=== PATIENT | male | born 1995 | race Two or more races ===

== ENCOUNTER 2019-03-13 19:49 | Inpatient (IN) | payer MEDICAID ==
[~2019-03-13] VITALS: Ht 167.6 cm; Wt 64.0 kg
[2019-03-13 20:58] LABS: Basophils # (auto) 0 uL; Eosinophils # (auto) 0 uL; Mean Corpuscular Hemoglobin 26.1 pg (28.0-32.0); Monocytes # (auto) 0.5 uL; Monocytes % (auto) 6.5 % (0.0-12.0); Neutrophils # (auto) 6.7 uL
[2019-03-13 21:00] LABS: Basophils % (auto) 0.1 % (0.0-2.0); Hematocrit 35.8 % (41.0-53.0); Hemoglobin 11.5 g/dL (13.5-17.5); Lymphocytes # (auto) 0.1 uL; Lymphocytes % (auto) 1.6 % (10.0-50.0); Mean Corpuscular Hgb Conc. 32.2 g/dL (32.0-36.0); Mean Corpuscular Volume 80.9 fL (80.0-100.0); Neutrophils % (auto) 91.8 % (37.0-80.0); Platelet Count (auto) 204 10^3/uL (140-450); Red Blood Cells 4.42 10^6/uL (4.5-5.90); Red Cell Distribution Width 18.2 % (11.8-14.3); White Blood Cell 7.3 10^3/uL (4.4-10.8)
[2019-03-13 21:19] LABS: Albumin 3.3 g/dL (3.4-5.0); Anion Gap 5 (5-15); Blood Urea Nitrogen 19 mg/dL (7-18); Carbon Dioxide 29 mmol/L (21-32); Chloride 101 mmol/L (98-107); Glucose 115 mg/dL (74-106); Potassium 3.5 mmol/L (3.5-5.1); Sodium 135 mmol/L (136-145)
[2019-03-13 21:22] LABS: Alanine Aminotransferase 97 U/L (16-61); Alkaline Phosphatase 84 U/L (45-117); Aspartate Aminotransferase 106 U/L (15-37); Bilirubin, Total 1.1 mg/dL (0.2-1.0); Total Protein 8.3 g/dL (6.4-8.2)
[2019-03-13 21:35] LABS: BUN/Creatinine Ratio 126.7; GFR African American 1046 mL/min; GFR Non-African American 864 mL/min
[2019-03-13 21:45] VITALS: BP 108/62
[2019-03-13] MEDS ORDERED: ACETAMINOPHEN 325 MG TAB PO ONE (22:15)
[2019-03-13] MEDS ORDERED: ONDANSETRON HCL 4 MG/2 ML VIAL IV ONE (22:15)
[2019-03-13] MEDS ORDERED: MORPHINE SULFATE 4 MG/ML SYR/VIAL IV ONE (22:15)
[2019-03-13] MEDS ORDERED: ACETAMINOPHEN 650 mg PER 20 mL UD GT ONE (22:30)
[2019-03-13 23:59] LABS: Urine Bacteria NONE SEEN /hpf (None Seen); Urine Blood Negative /uL (Negative); Urine Specific Gravity 1.022 (1.001-1.035); Urine WBC 2 /hpf (0 - 3)
[2019-03-14] VITALS (11 sets, daily range): BP systolic 86–106; BP diastolic 38–61
[2019-03-14] MEDS ORDERED: IBUPROFEN 100MG/5ML ORAL SUSP 100 MG/5 ML UD GT ONE
[2019-03-14] MEDS ORDERED: metroNIDAZOLE 500MG/100ML 100 ML IV ONE (01:00)
[2019-03-14] MEDS ORDERED: PIPERACILLIN-TAZOB 3.375GM 100 ML IV ONE (01:00)
[2019-03-14] MEDS ORDERED: SODIUM CHLORIDE 0.9% 1,000 ML IV SCH (01:52)
[2019-03-14] MEDS ORDERED: ACETAMINOPHEN 325 MG TAB PO PRN (02:00)
[2019-03-14] MEDS ORDERED: HYDROcodone-ACET 5/325MG TAB PO PRN (02:00)
[2019-03-14] MEDS ORDERED: VANCOMYCIN PER PHARMACY 0 MG IV SCH (02:00)
[2019-03-14] MEDS ORDERED: ONDANSETRON HCL 4 MG/2 ML VIAL IV PRN (02:00)
[2019-03-14] MEDS ORDERED: DOCUSATE SOD 100 MG CAP PO PRN (02:00)
[2019-03-14] MEDS ORDERED: MORPHINE SULFATE 4 MG/ML SYR/VIAL IV PRN (02:00)
[2019-03-14] MEDS ORDERED: VANCOMYCIN 1GM/250ML 250 ML IV ONE ×3 (02:30→19:23)
[2019-03-14] MEDS ORDERED: ACETAMINOPHEN 650 mg PER 20 mL UD GT PRN (09:15)
[2019-03-14 09:49] LABS: Basophils # (auto) 0 uL; Eosinophils # (auto) 0 uL; Lymphocytes # (auto) 0.2 uL; Mean Corpuscular Hgb Conc. 32.4 g/dL (32.0-36.0); Monocytes # (auto) 0.3 uL
[2019-03-14 09:53] LABS: Basophils % (auto) 0.2 % (0.0-2.0); Hematocrit 35.1 % (41.0-53.0); Hemoglobin 11.4 g/dL (13.5-17.5); Lymphocytes % (auto) 2.6 % (10.0-50.0); Mean Corpuscular Hemoglobin 26.5 pg (28.0-32.0); Mean Corpuscular Volume 81.8 fL (80.0-100.0); Monocytes % (auto) 4.4 % (0.0-12.0); Neutrophils # (auto) 6.8 uL; Neutrophils % (auto) 92.8 % (37.0-80.0); Nucleated Red Blood Cells % 0.1 %; Platelet Count (auto) 182 10^3/uL (140-450); Red Cell Distribution Width 17.8 % (11.8-14.3); White Blood Cell 7.3 10^3/uL (4.4-10.8)
[2019-03-14 09:54] LABS: Anion Gap 6 (5-15); Calcium 8.7 mg/dL (8.5-10.1); Carbon Dioxide 27 mmol/L (21-32); Chloride 102 mmol/L (98-107); Glucose 94 mg/dL (74-106); Sodium 135 mmol/L (136-145)
[2019-03-14 10:00] LABS: Blood Urea Nitrogen 10 mg/dL (7-18)
[2019-03-14] MEDS ORDERED: VANCOMYCIN 1GM/250ML 250 ML IV SCH ×2 (10:00→15:00)
--- NOTE | 2019-03-14 10:00 | NUR ---
WOUND CARE NOTE: ORDERED SPECIALTY AIR BED AT THIS TIME. PATIENT TO BE PLACED, PENDING DELIVERY BY SUDHA GUERRA
[2019-03-14 10:21] LABS: BUN/Creatinine Ratio 66.7; GFR African American 1046 mL/min; GFR Non-African American 864 mL/min
--- NOTE | 2019-03-14 10:41 | NUR ---
Dietary Consult Pt wt is 58.9 kg today Pt in ER waiting to be transferred to room per RN. Per RN, family is requesting EN support be initiated today. Est energy needs: 8683-4935 kcals (25-30 kcals/kgBW) Est protein needs: 47-59 gms/day (0.8-1.0 gm/kgBW) Recommendation: EN support Jevity 1.2 @ 55ml/hr goal rate. Administer as tolerated and per MD approval. Closely monitor PO intake for tolerance.
[2019-03-14] MEDS: PIPERACILLIN-TAZOB 3.375GM 100 ML IV SCH ×3 (11:19→21:54)
--- NOTE | 2019-03-14 12:00 | NUR ---
WOUND CARE NOTE: PATIENT ADMITTED TO [facility] WITH DIAGNOSIS OF PNA, CHOLELITHIASIS. CURRENT MELITON SCORE IS 12. PATIENT IS IN ER, BEING TRANSFERRED UP TO [facility]/SURG-TELE SHORTLY. PATIENT IS VENT DEPENDANT. ORDERED SPECIALTY AIR BED PREVENTATIVE. PATIENT TO BE PLACED, PENDING DELIVERY BY SUDHA MOISE. PATIENT HAS NO SKIN ISSUES AT THIS TIME. PATIENT WOULD BENEFIT FROM FREQUENT TURN SCHEDULE Q 2 HOURS, PRN CONDITION PERMITS, WITH PRESSURE REDISTRIBUTION USING PILLOWS/WEDGES, BID/PRN APPLICATION WITH MOISTURE BARRIER CREAM, OPTIFOAM GENTLE SACRAL DRESSING PREVENTATIVE, DIETARY CONSULT, SKIN WOUND CARE PLAN, CONTINUED MONITORING BY WOUND CARE TEAM.
[2019-03-14] MEDS ORDERED: LEVO25TA6 GT (13:12)
[2019-03-14] MEDS ORDERED: FAMO-12 GT (13:12)
[2019-03-14] MEDS ORDERED: ASPI-404 GT (13:12)
[2019-03-14] MEDS ORDERED: DOCU100T15 GT (13:12)
[2019-03-14] MEDS ORDERED: BACL10TA GT (13:12)
[2019-03-14] MEDS ORDERED: METO25TA5 GT (13:12)
--- NOTE | 2019-03-14 15:40 | NUR ---
REMOVED PT FROM VENTILATOR AND PLACED PT ON TRACH COLLAR ON 30% FIO2 AT 8LPM. PT CHAGO.WELL. SX MODERATE AMOUNTS OF THICK YELLOW SECRETIONS. SPO2 95%, HR 83, RR 18. NO DISTRESS AND NOTED. TRACH CARE DONE WITH NO INCIDENT REPORTED.
--- NOTE | 2019-03-14 17:30 | NUR ---
ASSUMED PATIENT CARE FROM J LUIS Chu PATIENT IS RESTING WITH FAMILY AT BEDSIDE. NO DISTRESS NOTED AND FAMILY AT BEDSIDE. ENCOURAGED TO CALL IF THEY NEED ANYTHING.
[2019-03-14] MEDS: SODIUM CHLORIDE 0.9% 1,000 ML IV SCH ×2 (18:32→23:40)
--- NOTE | 2019-03-14 19:20 | NUR ---
Opening Shift Note Received report from Altaf HANSEN. Assumed care of patient, awake and alert, non verbal and on mechanical ventilation. No S/S of distress/SOB or pain. Instructed patient and mother on POC and to call for assist PRN. Fall precaution measures in place, will continue to monitor for changes Q1hr and PRN.
[2019-03-15 05:00] VITALS: BP 97/48
[2019-03-15] MEDS: SODIUM CHLORIDE 0.9% 1,000 ML IV SCH ×4 (05:00→18:29)
[2019-03-15] MEDS: PIPERACILLIN-TAZOB 3.375GM 100 ML IV SCH ×3 (05:58→21:45)
[2019-03-15 06:29] LABS: Chloride 106 mmol/L (98-107); Potassium 3.6 mmol/L (3.5-5.1); Sodium 139 mmol/L (136-145)
[2019-03-15 06:37] LABS: Alanine Aminotransferase 134 U/L (16-61); Albumin 2.6 g/dL (3.4-5.0); Alkaline Phosphatase 102 U/L (45-117); Anion Gap 7 (5-15); Aspartate Aminotransferase 108 U/L (15-37); Bilirubin, Total 0.6 mg/dL (0.2-1.0); Blood Urea Nitrogen 7 mg/dL (7-18); Calcium 8.5 mg/dL (8.5-10.1); Carbon Dioxide 26 mmol/L (21-32); Glucose 75 mg/dL (74-106); Total Protein 6.7 g/dL (6.4-8.2)
[2019-03-15 07:01] LABS: BUN/Creatinine Ratio 46.7; GFR African American 1046 mL/min; GFR Non-African American 864 mL/min
--- NOTE | 2019-03-15 07:17 | NUR ---
Respiratory note: PATIENT TAKEN OFF VENT AT THIS TIME AND PLACED ON 30% COOL AEROSOL TRACH MASK. HE HAS 7 PORTEX CUFFED TRACH, CUFF WAS DEFLATED AT THIS TIME PER PATIENTS REQUEST. SPO2 95% AT THIS TIME.
[2019-03-15 08:38] VITALS: BP 112/68
--- NOTE | 2019-03-15 08:38 | NUR ---
Respiratory note: PATIENT PLACED ON V6 ESPRIT VENTILATOR AT THIS TIME PER HIS REQUEST HE STATES HE FEELS "TIRED" AND "SOB". 7 PORTEX CUFFED TRACH WAS REINFLATED FOR MECHANICAL VENTILATION. HE WAS SUCTIONED FOR MODERATE AMOUNT OF THICK GREEN SECRETIONS. HE SAYS HE NOW FEELS BETTER AFTER SUCTION AND BEING PLACED BACK ON VENT. TRACH SITE IS CLEAN/CLEAR FROM DRAINAGE, PATIENT IS ALERT/ORIENTED AND TOLERATING VENT WELL. RN J LUIS MADE AWARE OF PLACEMENT ON VENT AND PATIENTS CURRENT CONDITION. VENT IS PLUGGED INTO RED OUTLET AND ALL ALARMS ARE SET AND AUDIBLE. WILL CONTINUE TO ASSESS PATIENT WELL VENTILATOR FUNCTION.
[2019-03-15] MEDS ORDERED: MORPHINE SULF INJ 2 MG/ML SYRINGE 1ML IV PRN (08:45)
[2019-03-15] MEDS ORDERED: PIPERACILLIN-TAZOB 3.375GM 100 ML IV SCH (08:45)
[2019-03-15] MEDS ORDERED: METOPROLOL TARTRATE 1MG/1ML-5ML VIAL IV PRN (12:15)
[2019-03-15] MEDS ORDERED: FAMOTIDINE (10MG/ML) 2ML VL IV ONE (12:30)
[2019-03-15 13:00] VITALS: BP 100/55
[2019-03-15 13:08] LABS: INR 1.28 (0.9-1.15)
[2019-03-15 13:25] LABS: Amylase 35 U/L (25-115); Lipase 67 U/L (73-393)
[2019-03-15] MEDS: VANCOMYCIN 1GM/250ML 250 ML IV SCH (13:35)
--- NOTE | 2019-03-15 14:56 | NUR ---
Respiratory note: PATIENT TAKEN OFF VENT AT THIS TIME AND PLACED ON 6LPM TRACH MASK FOR TRANSPORT TO [facility] FOR PROCEDURE. SPO2 MAINTAINED AT 98%.
[2019-03-15 16:56] VITALS: BP 99/51
[2019-03-15 21:28] VITALS: BP 104/61
--- NOTE | 2019-03-16 00:27 | NUR ---
Respiratory note: RECEIVED PATIENT ON V6 V200 TRACHED WITH A 7 PORTEX, CUFFED, SECURED VIA TRACH TIE, AND BEING MECHANICALLY VENTILATED WITH THE CHARTED SETTINGS. SPO2 99%, LUNG SOUNDS DIM T/O. SMALL AMOUNT OF THICK GREEN SECRETIONS WHEN SUCTIONED. PATIENT IS ASLEEP AND TOLERATING VENT WELL, NO CHANGES MADE. VENT PLUGGED INTO RED OUTLET AND ALL ALARMS ARE SET AND AUDIBLE. WILL CONTINUE TO ASSESS PATIENT WELL VENTILATOR FUNCTION.
[2019-03-16] MEDS: SODIUM CHLORIDE 0.9% 1,000 ML IV SCH ×5 (00:35→20:09)
[2019-03-16] MEDS: VANCOMYCIN 1GM/250ML 250 ML IV SCH ×2 (01:07→12:45)
[2019-03-16 04:28] VITALS: BP 104/66
[2019-03-16] MEDS: PIPERACILLIN-TAZOB 3.375GM 100 ML IV SCH ×3 (05:40→22:17)
[2019-03-16 06:05] LABS: Basophils # (auto) 0 uL; Eosinophils # (auto) 0 uL; Eosinophils % (auto) 0.1 % (0.0-7.0); Hemoglobin 9.9 g/dL (13.5-17.5); Monocytes # (auto) 0.4 uL; Neutrophils # (auto) 1.9 uL; White Blood Cell 2.9 10^3/uL (4.4-10.8)
[2019-03-16 06:08] LABS: Basophils % (auto) 0.4 % (0.0-2.0); Hematocrit 30.3 % (41.0-53.0); Lymphocytes # (auto) 0.6 uL; Lymphocytes % (auto) 21.9 % (10.0-50.0); Mean Corpuscular Hemoglobin 26.6 pg (28.0-32.0); Mean Corpuscular Hgb Conc. 32.6 g/dL (32.0-36.0); Mean Corpuscular Volume 81.6 fL (80.0-100.0); Monocytes % (auto) 12.5 % (0.0-12.0); Neutrophils % (auto) 65.1 % (37.0-80.0); Platelet Count (auto) 145 10^3/uL (140-450); Red Blood Cells 3.71 10^6/uL (4.5-5.90); Red Cell Distribution Width 17.7 % (11.8-14.3)
[2019-03-16 06:22] LABS: Amylase 30 U/L (25-115); Anion Gap 8 (5-15); Blood Urea Nitrogen 5 mg/dL (7-18); Calcium 8.4 mg/dL (8.5-10.1); Carbon Dioxide 26 mmol/L (21-32); Chloride 105 mmol/L (98-107); Glucose 68 mg/dL (74-106); Lipase 90 U/L (73-393); Potassium 3.3 mmol/L (3.5-5.1); Sodium 139 mmol/L (136-145)
[2019-03-16 06:29] LABS: BUN/Creatinine Ratio 33.3; GFR African American 1046 mL/min; GFR Non-African American 864 mL/min
[2019-03-16 09:00] VITALS: BP 118/69
[2019-03-16] MEDS: FAMOTIDINE (10MG/ML) 2ML VL IV SCH (09:40)
[2019-03-16] MEDS ORDERED: POTASSIUM CHLORIDE 20 MEQ, LIDOCAINE 1% (LOCAL ANESTH.) 2 ML in SODIUM CHL 0.9% 100 ML IV ONE (11:30)
[2019-03-16 13:00] VITALS: BP 111/63
--- NOTE | 2019-03-16 13:57 | NUR ---
transfer: ss order along with transfer packet faxed to [facility], [facility] and [facility]
--- NOTE | 2019-03-16 16:23 | NUR ---
[facility] is on will call, I called Jania Shay CM for [facility] for auth and had to leave message to call [facility] and give auth for transport since I will not be here to accept call.
--- NOTE | 2019-03-16 16:27 | NUR ---
auths per Janeth at [facility] is [facility] [phone] and for facility is [id number]
--- NOTE | 2019-03-16 16:36 | NUR ---
Assessment Pt is a 23 yr old alert and oriented male. Assessment conducted through coal trimmer with parents per pt's request. Pt lives at home with family and his parents are his caregivers. Pt's sister Jordyn is his emergency contact at [phone]. Pt is quadriplegic and needs full assist in the home. Pt admitted with headache. Pt's Primary is Dr Meehan and has no AD on file. Pt's mother stated that he has all the DME needed the home. Pt needs to be transferred to a higher level care per 's order. Pt's parents would prefer placement at [facility] if possible. Pt's receives medical transportation. Addendum: 03/16/19 at 1646 by JACQUELYN GRIMES Amended: Links added.
[2019-03-16 17:00] VITALS: BP 113/60
[2019-03-16 18:10] VITALS: BP 113/60
[2019-03-16 21:48] VITALS: BP 106/60
[2019-03-17] MEDS: VANCOMYCIN 1GM/250ML 250 ML IV SCH ×2 (00:58→13:43)
[2019-03-17] MEDS: SODIUM CHLORIDE 0.9% 1,000 ML IV SCH ×2 (01:10→06:15)
[2019-03-17 01:30] VITALS: BP 106/60
[2019-03-17 04:46] VITALS: BP 123/79
[2019-03-17] MEDS: PIPERACILLIN-TAZOB 3.375GM 100 ML IV SCH ×3 (06:02→22:29)
--- NOTE | 2019-03-17 07:30 | NUR ---
RECEIVED REPORT FROM NIGHT NURSE. PATIENT RESTING IN BED, NO DISTRESS NOTED. SISTER AT BEDSIDE.
--- NOTE | 2019-03-17 08:23 | NUR ---
transfer: called [facility] and spoke to Shari and she stated they are working on contacting one of their MDs
--- NOTE | 2019-03-17 08:36 | NUR ---
[facility] is working on getting a MD for this pt
[2019-03-17 08:49] VITALS: BP 99/51
--- NOTE | 2019-03-17 09:30 | NUR ---
I HAVE OFFERED TO TURN THE PATIENT EVERY 2 HOURS INSTRUCTED. THE PATIENT HAS DECLINED TO BE TURNED TWICE SO FAR.
[2019-03-17] MEDS: FAMOTIDINE (10MG/ML) 2ML VL IV SCH (10:13)
[2019-03-17] MEDS ORDERED: D5W/SOD CHL 0.45%/KCL 40MEQ 1,000 ML IV ONE (10:45)
[2019-03-17 10:57] LABS: Basophils # (auto) 0 uL; Basophils % (auto) 0.2 % (0.0-2.0); Eosinophils # (auto) 0 uL; Hemoglobin 11.4 g/dL (13.5-17.5); Lymphocytes # (auto) 0.6 uL; Monocytes # (auto) 0.7 uL; Platelet Count (auto) 160 10^3/uL (140-450); White Blood Cell 3.7 10^3/uL (4.4-10.8)
[2019-03-17 10:59] LABS: Hematocrit 35.6 % (41.0-53.0); Mean Corpuscular Hemoglobin 26.2 pg (28.0-32.0); Mean Corpuscular Volume 81.8 fL (80.0-100.0); Monocytes % (auto) 17.9 % (0.0-12.0); Neutrophils # (auto) 2.5 uL; Neutrophils % (auto) 66.9 % (37.0-80.0); Nucleated Red Blood Cells % 0.1 %; Red Blood Cells 4.35 10^6/uL (4.5-5.90); Red Cell Distribution Width 17.9 % (11.8-14.3)
[2019-03-17 11:17] LABS: Albumin 2.5 g/dL (3.4-5.0); Calcium 8.4 mg/dL (8.5-10.1); Potassium 3.4 mmol/L (3.5-5.1)
[2019-03-17 11:20] LABS: BUN/Creatinine Ratio 27.6; Bilirubin, Total 0.6 mg/dL (0.2-1.0); Total Protein 7.1 g/dL (6.4-8.2)
--- NOTE | 2019-03-17 11:59 | NUR ---
Mai from [facility] called and stated vent pts go to ICU in their facility and that all their ICU's are at capacity right now. Pt will be kept on list
--- NOTE | 2019-03-17 12:00 | NUR ---
OFFERED TO TURN THE PATIENT INSTRUCTED, THE PATIENT HAS DECLINED TO BE TURNED AGAIN. I NOTIFIED THE PATIENT'S RN.
[2019-03-17 12:31] VITALS: BP 114/65
--- NOTE | 2019-03-17 14:21 | NUR ---
CALLED [facility] AND HAD TO LEAVE MESSAGE ASKING ABOUT TRANSFER UPDATE
--- NOTE | 2019-03-17 15:01 | NUR ---
FAXED TO [facility] AND [facility]
--- NOTE | 2019-03-17 15:10 | NUR ---
WILL HOLD OFF FAXING TO [facility] OR [facility] TO SEE IF PT'S FAMILY OKAY WITH PT GOING TO THOSE FACILITIES
--- NOTE | 2019-03-17 15:32 | NUR ---
TRANSFER: Primary RN Norma informed me that mother of pt states [facility] too far away. I will only fax transfer back and transfer packet to [place] since family okay with location of hospital
[2019-03-17 16:44] VITALS: BP 110/65
--- NOTE | 2019-03-17 18:00 | NUR ---
PATIENT AND FAMILY AT BEDSIDE, REFUSING TO HAVE THE PATIENT TURNED Q2 THROUGH OUT SHIFT. PATIENT ON SPECIALTY/AIR MATTRESS. EDUCATION PROVIDED ON IMPORTANCE OF TURNING, WILL CONTINUE TO MONITOR AND ENCOURAGE TO TURN.
--- NOTE | 2019-03-17 19:30 | NUR ---
REPORT RECEIVED, ASSUMED CARE.
--- NOTE | 2019-03-17 20:13 | NUR ---
PT REFUSING TO BE TURNED. FAMILY @ BEDSIDE AWARE, EDUCATION GIVEN TO BOTH PT AND FAMILY.
[2019-03-17 22:01] VITALS: BP 112/65
--- NOTE | 2019-03-17 22:22 | NUR ---
PT REFUSING TO BE TURNED. FAMILY @ BEDSIDE AWARE, EDUCATION GIVEN TO BOTH PT AND FAMILY.
--- NOTE | 2019-03-18 00:09 | NUR ---
PT REFUSING TO BE TURNED. FAMILY @ BEDSIDE AWARE, EDUCATION GIVEN TO BOTH PT AND FAMILY.
[2019-03-18] MEDS: VANCOMYCIN 1GM/250ML 250 ML IV SCH ×2 (00:47→12:03)
--- NOTE | 2019-03-18 01:56 | NUR ---
PT REFUSING TO BE TURNED. FAMILY @ BEDSIDE AWARE, EDUCATION GIVEN TO BOTH PT AND FAMILY.
--- NOTE | 2019-03-18 03:45 | NUR ---
PT REFUSING TO BE TURNED. FAMILY @ BEDSIDE AWARE, EDUCATION GIVEN TO BOTH PT AND FAMILY.
[2019-03-18 05:20] VITALS: BP 108/62
[2019-03-18] MEDS: PIPERACILLIN-TAZOB 3.375GM 100 ML IV SCH ×3 (05:37→21:35)
--- NOTE | 2019-03-18 06:00 | NUR ---
PT REFUSING TO BE TURNED. FAMILY @ BEDSIDE AWARE, EDUCATION GIVEN TO BOTH PT AND FAMILY.
--- NOTE | 2019-03-18 07:30 | NUR ---
OPENING SHIFT NOTE RECEIVED REPORT FROM NIGHT NURSE. PATIENT RESTING IN BED, NO DISTRESS NOTED. FAMILY AT BEDSIDE. WILL CONTINUE TO MONITOR.
[2019-03-18 09:20] VITALS: BP 105/70
--- NOTE | 2019-03-18 09:24 | NUR ---
I called [facility] transfer center [phone] and spoke with Shad, he said they have no ICU beds available at this time-I verified Dr. Dolan's contact information with him.
[2019-03-18] MEDS: FAMOTIDINE (10MG/ML) 2ML VL IV SCH (09:55)
--- NOTE | 2019-03-18 10:18 | NUR ---
I called [facility] and spoke with resort housekeeper Betty, she provided me with their front end wheel loader operator hospitalist Dr. Clayton [phone]-I placed a page out to Dr. Dolan to provided her with the information-she needs to call him to see if he will be willing to accept this patient.
[2019-03-18 13:17] VITALS: BP 106/61
[2019-03-18 13:36] LABS: Basophils # (auto) 0 uL; Eosinophils # (auto) 0 uL; Monocytes # (auto) 0.7 uL
[2019-03-18 13:38] LABS: Basophils % (auto) 0.4 % (0.0-2.0); Eosinophils % (auto) 0.4 % (0.0-7.0); Hematocrit 33.6 % (41.0-53.0); Lymphocytes # (auto) 0.8 uL; Lymphocytes % (auto) 22.4 % (10.0-50.0); Mean Corpuscular Hemoglobin 26.5 pg (28.0-32.0); Mean Corpuscular Hgb Conc. 32.8 g/dL (32.0-36.0); Mean Corpuscular Volume 80.8 fL (80.0-100.0); Monocytes % (auto) 17.7 % (0.0-12.0); Neutrophils # (auto) 2.2 uL; Neutrophils % (auto) 59.1 % (37.0-80.0); Nucleated Red Blood Cells % 0.1 %; Platelet Count (auto) 151 10^3/uL (140-450); Red Blood Cells 4.17 10^6/uL (4.5-5.90); Red Cell Distribution Width 17.5 % (11.8-14.3); White Blood Cell 3.8 10^3/uL (4.4-10.8)
[2019-03-18 13:57] LABS: BUN/Creatinine Ratio 15.2; Calcium 8.6 mg/dL (8.5-10.1); Potassium 3.7 mmol/L (3.5-5.1)
--- NOTE | 2019-03-18 16:02 | NUR ---
Nutrition Assessment Notes Please refer to link for full assessment notes Est energy needs: 5029-3479 kcals (25-30 kcals/kgBW) Est protein needs: 53-66 gms/day (0.8-1.0 gm/kgBW) Recommendation: EN support Jevity 1.2 @ 65ml/hr goal rate. Administer as tolerated and per MD approval. Closely monitor PO intake for tolerance. Note: Patient's needs were amended from the original recommendation based on pt's current weight as of today Will continue to monitor and reassess prn Addendum: 03/18/19 at [address] Amended: Links added.
[2019-03-18 16:50] VITALS: BP 115/66
--- NOTE | 2019-03-18 17:27 | NUR ---
PATIENT REFUSED TO TURN. FAMILY IS AT BEDSIDE.
--- NOTE | 2019-03-18 17:29 | NUR ---
PATIENT REFUSED TO TURN THROUGH OUT THE SHIFT. FAMILY IS AT BEDSIDE. EDUCATION WAS GIVEN TO THE PATIENT AND FAMILY.
--- NOTE | 2019-03-18 18:40 | NUR ---
PATIENT AND FAMILY AT BEDSIDE, REFUSING TO HAVE THE PATIENT TURNED Q2 THROUGHOUT SHIFT. PATIENT ON SPECIALTY/AIR MATTRESS. EDUCATION PROVIDED ON IMPORTANCE OF TURNING, WILL CONTINUE TO MONITOR AND ENCOURAGE TO TURN.
--- NOTE | 2019-03-18 19:30 | NUR ---
OPENING SHIFT NOTE PT IN BED ALERT AND ORIENTED X 4, VERBALLY COHERENT, ABLE TO MAKE NEEDS KNOWN. PT'S RESPIRATION EVEN AND UNLABORED. PT DENIES PAIN AND DISCOMFORT AT THIS TIME. PLAN OF CARE DISCUSSED, PATIENT VERBALIZED UNDERSTANDING. ALL NEEDS ATTENDED, FAMILY AT BEDSIDE. WILL CONTINUE TO MONITOR.
[2019-03-18 21:55] VITALS: BP 105/70
[2019-03-19] VITALS (8 sets, daily range): BP systolic 113–133; BP diastolic 69–79
--- NOTE | 2019-03-19 01:50 | NUR ---
Ventilator alarm. Pt not in acute distress, however, per pt/ father, unable to sleep due to alarm. RT paged.
--- NOTE | 2019-03-19 04:22 | NUR ---
Patient complained of nausea with no vomiting. Zofran administered as ordered. Will continue to monitor.
--- NOTE | 2019-03-19 04:23 | NUR ---
Patient refused skin assessment and repositioning. Pt's father at bedside, per pt, father already provided him with urinal to urinate and provided perineal care. Will continue to monitor.
[2019-03-19] MEDS: PIPERACILLIN-TAZOB 3.375GM 100 ML IV SCH ×3 (06:13→21:39)
--- NOTE | 2019-03-19 07:15 | NUR ---
Opening Shift Note Assumed care of patient, awake and alert. No S/S of distress/SOB or pain reported by pt. Pts father was in room. Instructed on POC and to call for assist PRN, will continue to monitor for changes Q1hr and PRN. call light within reach.
--- NOTE | 2019-03-19 08:30 | NUR ---
TRACH CUFF DEFLATED AT THIS TIME
--- NOTE | 2019-03-19 08:30 | NUR ---
PT IS OFF VENTILATOR AT THIS TIME AND PLACED ON 30% COOL MIST AEROSOL TRACH MASK. PT CONNECTED TO CONTINUOUS PULSE OX AT BEDSIDE. PER PT FATHER, PT ONLY WEARS VENTILATOR AT NIGHT WHEN HES AT HOME. NO RESPIRATORY DISTRESS NOTED. SPO2 99%. SUCTION NOT INDICATED. JADE MONTIEL AWARE.
--- NOTE | 2019-03-19 09:17 | NUR ---
I called [facility] [phone] and left message for warehouse laborer to call me back regarding which MD of theirs is on today so we can arrange a doctor to doctor. Addendum: 03/22/19 at 0940 by Betty Monte RN [id number] 03/19/19 I spoke with Augusta from [facility]-she stated that Dr. Wise is flight information expediter today-provided phone number to Dr. Dolan [phone]-she called him and is waiting for a call back to see if he will be accepting the patient.
[2019-03-19] MEDS: FAMOTIDINE (10MG/ML) 2ML VL IV SCH (10:13)
[2019-03-19] MEDS ORDERED: ENOXAPARIN SOD 40 MG/0.4 ML SYRINGE SC ONE (13:45)
--- NOTE | 2019-03-19 15:20 | NUR ---
ATTEMPTED TO DO TRACH CARE AT THIS TIME, PT REFUSED. PT STATES TRACH CARE DONE BY FAMILY MEMBER. TRACH SITE IS CLEAN WITH CLEAN WEBBER HOLE DRESSING. DEEP TRACHEAL SUCTIONED X3 USING STERILE TECHNIQUE FOR MODERATE THICK GREEN RETURN.
[2019-03-19 16:38] LABS: Albumin 2.4 g/dL (3.4-5.0); BUN/Creatinine Ratio 21.1; Calcium 8.5 mg/dL (8.5-10.1); Potassium 3.2 mmol/L (3.5-5.1)
[2019-03-19 16:40] LABS: Bilirubin, Total 0.7 mg/dL (0.2-1.0); Total Protein 7.1 g/dL (6.4-8.2)
--- NOTE | 2019-03-19 17:15 | NUR ---
PAGED DR. MATTHEW TO INFORM OF CMP RESULTS. AWAITING CALL BACK.
[2019-03-19] MEDS: Jevity 1.2 Cal/Fiber 1 Liter GT SCH (18:19)
--- NOTE | 2019-03-19 18:20 | NUR ---
jevity started at 30 ml/hr per Dr. Dolan's order. patient encouraged to call if any pain to the abdominal area occurs.
--- NOTE | 2019-03-19 19:54 | NUR ---
Opening shift note Patient in bed alert and oriented x 4, verbally coherent, snow to make needs known. Patient's respiration even and unlabored, denies pain or any discomfort at this time. Plan of care discussed, patient verbalized understanding. Family at bedside. All needs attended, will continue to monitor.
--- NOTE | 2019-03-19 21:46 | NUR ---
PATIENT REQUESTED TO BE DEEP SUCTIONED AND TO TURN [facility] VENTILATOR ON. PAGED RT.
--- NOTE | 2019-03-20 00:12 | NUR ---
RECEIVED CALL FROM [facility]/ [facility], NO AVAILABLE BED OF THIS TIME. PER [facility], THEY WILL CALL AGAIN WHEN BED AVAILABLE. WILL ENDORSE TO AM SHIFT RN.
--- NOTE | 2019-03-20 03:42 | NUR ---
RECEIVED CALL FROM [facility]/ [facility] STILL AWAITING FOR ACCEPTING PHYSICIAN. PER [facility], WILL UPDATE [facility].
--- NOTE | 2019-03-20 04:00 | NUR ---
PATIENT WITH HEAVY AMOUNT OF GREEN SOFT BM. PROVIDED PATIENT WITH GOOD SKIN AND PERINEAL CARE. PROVIDED PATIENT WITH MOUTH CARE. COMPLETE LINEN CHANGE DONE WITH BENCH MANAGER ASSISTANCE. PATIENT TOLERATED WELL.
[2019-03-20 05:55] VITALS: BP 119/60
[2019-03-20] MEDS: PIPERACILLIN-TAZOB 3.375GM 100 ML IV SCH ×3 (06:26→21:10)
--- NOTE | 2019-03-20 07:30 | NUR ---
Opening Shift Note Assumed care of patient, awake and alert. No S/S of distress/SOB or pain. Instructed on POC and to call for assist PRN, will continue to monitor for changes Q1hr and PRN.
--- NOTE | 2019-03-20 07:45 | NUR ---
REMOVED PT FROM VENT V-9, AND PLACE PT ON 11L 35% FIO2 VIA TRACH COLLAR. SX TRACH FOR SMALL AMOUNT OF THICK, CLEAR, SECRETIONS. SPO2 100%, HR 70, RR 20, BS COARSE/DIMINISHED BILATERALLY. STOMA SITE IS CLEAN, AND DRY. NO REDNESS, OR IRRITATION NOTED. FAMILY AT BEDSIDE.
[2019-03-20 07:55] LABS: Calcium 8.3 mg/dL (8.5-10.1)
[2019-03-20 07:58] LABS: Albumin 2.5 g/dL (3.4-5.0); BUN/Creatinine Ratio 15.4
[2019-03-20 08:00] VITALS: BP 130/68
[2019-03-20 08:02] LABS: Bilirubin, Total 0.6 mg/dL (0.2-1.0); Total Protein 7.3 g/dL (6.4-8.2)
--- NOTE | 2019-03-20 08:35 | NUR ---
Dr. Dolan paged for low potassium level. Awaiting call back for orders from Dr. Dolan.
[2019-03-20 09:00] VITALS: BP 130/68
--- NOTE | 2019-03-20 10:40 | NUR ---
Respiratory note: PT AWAKE, AND ALERT. TITRATED FIO2 FROM 11L 35% TO 8L 30% VIA TRACH COLLAR. PT TOLERATING CHANGE WELL. SPO2 100%, HR 79, RR 18, BS CLEAR/DIMINISHED. FAMILY AT BEDSIDE.
--- NOTE | 2019-03-20 10:45 | NUR ---
WOUND CARE NOTE: PATIENT CONTINUES TO REST ON SPECIALTY AIR MATTRESS. CURRENT MELITON SCORE IS 10. PATIENT CONTINUES TO BE MAX ASSIST FOR HIS ADL'S, INCLUDING REPOSITIONING/TURNING. HE CONTINUES TO BE WOUND FREE AT THIS TIME. SKIN/WOUND CARE PLAN UPDATED. PATIENT WOULD BENEFIT FROM CONTINUATION WITH ALL OF HIS WOUND CARE ORDERS/INTERVENTIONS PREVIOUSLY PRESCRIBED BY MD. WOUND CARE TEAM WILL CONTINUE TO MONITOR.
[2019-03-20] MEDS: FAMOTIDINE (10MG/ML) 2ML VL IV SCH (10:46)
[2019-03-20] MEDS: ENOXAPARIN SOD 40 MG/0.4 ML SYRINGE SC SCH (10:47)
[2019-03-20] MEDS: POTASSIUM CHL 20MEQ/100ML 100 ML IV SCH ×2 (12:46→15:40)
[2019-03-20 13:00] VITALS: BP 125/61
[2019-03-20 17:00] VITALS: BP 121/71
--- NOTE | 2019-03-20 19:30 | NUR ---
Opening Shift Note Assumed care of patient, awake and alert. No S/S of distress/SOB or pain. Instructed on POC and to call for assist PRN, family at bedside, will continue to monitor.
--- NOTE | 2019-03-20 20:00 | NUR ---
Free water given via peg tube. 150ml Q3 per family home schedule verified with patient's sister, Jordyn. Abdomen soft, non distended. Will continue to monitor.
[2019-03-20 21:34] VITALS: BP 119/71
[2019-03-21] VITALS (7 sets, daily range): BP systolic 100–143; BP diastolic 52–75
[2019-03-21] MEDS: PIPERACILLIN-TAZOB 3.375GM 100 ML IV SCH ×3 (06:25→19:39)
--- NOTE | 2019-03-21 07:15 | NUR ---
Respiratory note: RT AT BEDSIDE TO TAKE PT OFF VENT AND PLACE ON TRACH COLLAR FOR THE DAY, PT SAID IT'S STILL TOO EARLY AND WANTED TO STAY ON THE VENT TO SLEEP A LITTLE LONGER. PT REMAINS ON VENT, SLEEPING COMFORTABLY IN BED, NO S/S OF RESPIRATORY DISTRESS NOTED. HR 75, RR 14, POX 99%. PT'S MOTHER AT BEDSIDE. WILL CONTINUE TO MONITOR.
[2019-03-21 07:57] LABS: Basophils # (auto) 0 uL; Basophils % (auto) 0.1 % (0.0-2.0); Eosinophils # (auto) 0.1 uL; Monocytes # (auto) 0.7 uL; Neutrophils # (auto) 2.5 uL; Nucleated Red Blood Cells % 0.1 %; White Blood Cell 4.1 10^3/uL (4.4-10.8)
[2019-03-21 08:00] LABS: Hematocrit 31.2 % (41.0-53.0); Hemoglobin 10.3 g/dL (13.5-17.5); Lymphocytes # (auto) 0.9 uL; Lymphocytes % (auto) 21.1 % (10.0-50.0); Mean Corpuscular Hemoglobin 26.1 pg (28.0-32.0); Mean Corpuscular Hgb Conc. 32.8 g/dL (32.0-36.0); Mean Corpuscular Volume 79.6 fL (80.0-100.0); Monocytes % (auto) 16.1 % (0.0-12.0); Neutrophils % (auto) 60.7 % (37.0-80.0); Platelet Count (auto) 157 10^3/uL (140-450); Red Blood Cells 3.92 10^6/uL (4.5-5.90); Red Cell Distribution Width 17.6 % (11.8-14.3)
[2019-03-21 08:08] LABS: Anion Gap 3 (5-15); Blood Urea Nitrogen 6 mg/dL (7-18); Carbon Dioxide 32 mmol/L (21-32); Chloride 107 mmol/L (98-107); Glucose 107 mg/dL (74-106); Magnesium 1.5 mg/dL (1.6-2.6); Potassium 3.7 mmol/L (3.5-5.1); Sodium 142 mmol/L (136-145)
[2019-03-21 08:10] LABS: Calcium 8.3 mg/dL (8.5-10.1); GFR African American 1046 mL/min; GFR Non-African American 864 mL/min
--- NOTE | 2019-03-21 08:40 | NUR ---
OFF VENT TOOK PT OFF VENT, PLACED ON TRACH COLLAR WITH COOL AEROSOL 10 L/M, FIO2 35% WITH CUFF DEFLATED. HR 74, RR 16, POX 99%. BREATH SOUNDS BILATERAL COARSE CRACKLES, SUCTIONED MODERATE AMOUNT THICK CREAMY SECRETIONS. PT AWAKE, RESTING COMFORTABLY IN BED, NO S/S OF RESPIRATORY DISTRESS NOTED, PT DENIES ANY SOB AT THIS TIME. CONTINUOUS POX MONITOR AT BEDSIDE. ADVISED PT TO CALL FOR RT IF NEEDED. PT'S MOTHER AT BEDSIDE, AWARE TO CALL WELL. WILL CONTINUE TO MONITOR.
--- NOTE | 2019-03-21 09:52 | NUR ---
[facility] LINER HELPER CALLED , THEY ARE STILL WORKING ON FINDING A BED.
[2019-03-21] MEDS: FAMOTIDINE (10MG/ML) 2ML VL IV SCH (10:50)
[2019-03-21] MEDS: ENOXAPARIN SOD 40 MG/0.4 ML SYRINGE SC SCH (10:50)
--- NOTE | 2019-03-21 14:42 | NUR ---
MD JAXON GARCIA AT BEDSIDE. ALL QUESTIONS AND CONCERNS ADDRESSED AT THIS TIME
[2019-03-21] MEDS ORDERED: MAGNESIUM SULFATE 1GM/100ML 100 ML IV ONE (14:45)
--- NOTE | 2019-03-21 16:10 | NUR ---
Respiratory note: Trach care done, stoma site is asymptomatic. Suctioned large amount thin yellow/green secretions. Pt remains on trach collar, cuff deflated, tolerating well. HR 78, RR 18, POX 98%. Will endorse pt care to noc shift RT.
--- NOTE | 2019-03-21 20:00 | NUR ---
OPENING NOTE RECEIVED REPORT FROM DAYSHIFT RN. ASSUMING ROLE OF CARE OF PATIENT AT THIS TIME. PATIENT ALERT AND ORIENTED AND EDUCATED ON PLAN OF CARE FOR THE NIGHT. PATIENT AND FAMILY VERBALIZED UNDERSTANDING. PATIENT'S TRACH COLLAR IN PLACE AND PATIENT O2 SATURATIONS AT NORMAL LEVELS. PATIENT SHOWING NO SIGN OF DISTRESS, SHORTNESS OF BREATH, AND PATIENT DENIES ANY PAIN AT THIS TIME. PATIENT GIVEN FREE WATER PER SCHEDULE. BED LOWERED, CALL LIGHT WITHIN REACH, AND PATIENT WILL BE ROUNDED ON EVERY HOUR AND NEEDED.
[2019-03-22] MEDS: PIPERACILLIN-TAZOB 3.375GM 100 ML IV SCH ×4 (01:17→20:18)
[2019-03-22 05:32] VITALS: BP 85/44
[2019-03-22 05:59] VITALS: BP 89/52
[2019-03-22 06:10] LABS: Basophils # (auto) 0 uL; Basophils % (auto) 0.1 % (0.0-2.0); Eosinophils # (auto) 0.2 uL; Eosinophils % (auto) 3.4 % (0.0-7.0); Hematocrit 31.6 % (41.0-53.0); Hemoglobin 10.3 g/dL (13.5-17.5); Lymphocytes # (auto) 1.1 uL; Lymphocytes % (auto) 22.6 % (10.0-50.0); Mean Corpuscular Hemoglobin 26.4 pg (28.0-32.0); Mean Corpuscular Hgb Conc. 32.5 g/dL (32.0-36.0); Mean Corpuscular Volume 81.1 fL (80.0-100.0); Monocytes # (auto) 0.8 uL; Monocytes % (auto) 17.5 % (0.0-12.0); Neutrophils # (auto) 2.7 uL; Neutrophils % (auto) 56.4 % (37.0-80.0); Platelet Count (auto) 201 10^3/uL (140-450); Red Blood Cells 3.89 10^6/uL (4.5-5.90); Red Cell Distribution Width 17.5 % (11.8-14.3); White Blood Cell 4.7 10^3/uL (4.4-10.8)
[2019-03-22 06:29] LABS: Anion Gap 5 (5-15); Blood Urea Nitrogen 8 mg/dL (7-18); Calcium 8.5 mg/dL (8.5-10.1); Carbon Dioxide 31 mmol/L (21-32); Chloride 103 mmol/L (98-107); Glucose 104 mg/dL (74-106); Magnesium 2.3 mg/dL (1.6-2.6); Potassium 3.6 mmol/L (3.5-5.1); Sodium 139 mmol/L (136-145)
[2019-03-22 06:50] LABS: BUN/Creatinine Ratio 53.3; GFR African American 1046 mL/min; GFR Non-African American 864 mL/min
--- NOTE | 2019-03-22 07:20 | NUR ---
Opening Shift Note Assumed care of patient, asleep on mechanical ventilator. No S/S of distress/SOB or pain. Family member at bedside. Will follow up with instructions on POC and to call for assist PRN when awake. Will continue to monitor for changes Q1hr and PRN.
--- NOTE | 2019-03-22 07:27 | NUR ---
CLOSING NOTE REPORT GIVEN TO DAYSHIFT RN. PATIENT STABLE AT THIS TIME. PATIENT SHOWING NO SIGN OF DISTRESS, SHORTNESS OF BREATH, AND PATIENT DOES NOT STATE PAIN. PATIENT RESTING COMFORTABLY WITH TRACH COLLAR IN PLACE.
--- NOTE | 2019-03-22 08:50 | NUR ---
Respiratory note: TOOK PT OFF VENT, PLACED ON TRACH COLLAR WITH COOL AEROSOL 10 L/M, FIO2 35% WITH CUFF DEFLATED. HR 70, RR 16, POX 99%. BREATH SOUNDS BILATERAL COARSE, SUCTIONED WITH SCANT RETURN. PT AWAKE, RESTING COMFORTABLY IN BED, NO S/S OF RESPIRATORY DISTRESS NOTED, PT DENIES ANY SOB AT THIS TIME. CONTINUOUS POX MONITOR AT BEDSIDE. ADVISED PT TO CALL FOR RT IF NEEDED. PT'S FAMILY AT BEDSIDE, AWARE TO CALL WELL. WILL CONTINUE TO MONITOR.
[2019-03-22 09:00] VITALS: BP 88/57
--- NOTE | 2019-03-22 09:50 | NUR ---
Transfer: Spoke to JR at [facility] and they are still trying to get a bed for pt, called [facility] and they still have no ICU beds (all vent pts go to ICU at [facility]) .
--- NOTE | 2019-03-22 09:55 | NUR ---
per Betty at [facility], they declined pt due to him being too high risk for their facility
[2019-03-22] MEDS: ENOXAPARIN SOD 40 MG/0.4 ML SYRINGE SC SCH (10:15)
[2019-03-22] MEDS: FAMOTIDINE (10MG/ML) 2ML VL IV SCH (10:15)
[2019-03-22 13:00] VITALS: BP 115/68
[2019-03-22 17:06] VITALS: BP 121/67
--- NOTE | 2019-03-22 18:45 | NUR ---
Family at bedside. Patient resting comfortably in bed, uncomplaining. Care will be endorsed to maintenance technician 2nd shift RN.
--- NOTE | 2019-03-22 19:20 | NUR ---
OPENING NOTE Patient is alert and oriented. Patient and family have been both educated on plan of care. Patient and family verbalized understanding. Patient's trach collar in place and patient's O2 saturation is normal. Patient showing no signs of distress or SOB and denies any pain. Instructed call for assist PRN, will continue to monitor for changes Q1hr and PRN.
[2019-03-22 21:07] VITALS: BP 103/71
[2019-03-23 01:12] VITALS: BP 103/71
--- NOTE | 2019-03-23 03:50 | NUR ---
[facility] Loraine, credit representative from [facility] transfer center, called to state that they are still waiting for bed placement.
--- NOTE | 2019-03-23 04:16 | NUR ---
MATHEW CASANOVA CALL Per [facility] transfer center pharmaceutical representative, their ICU is still at full capacity and will call back if bed becomes available.
[2019-03-23 05:36] VITALS: BP 93/55
[2019-03-23 07:00] LABS: Basophils # (auto) 0 uL; Eosinophils # (auto) 0.2 uL; Monocytes # (auto) 0.6 uL; White Blood Cell 4.8 10^3/uL (4.4-10.8)
[2019-03-23 07:02] LABS: Basophils % (auto) 0.2 % (0.0-2.0); Eosinophils % (auto) 4.5 % (0.0-7.0); Hematocrit 31.2 % (41.0-53.0); Hemoglobin 10.3 g/dL (13.5-17.5); Mean Corpuscular Hemoglobin 26.1 pg (28.0-32.0); Monocytes % (auto) 12.9 % (0.0-12.0); Neutrophils % (auto) 62.4 % (37.0-80.0); Platelet Count (auto) 244 10^3/uL (140-450); Red Blood Cells 3.94 10^6/uL (4.5-5.90); Red Cell Distribution Width 17.6 % (11.8-14.3)
[2019-03-23 07:16] LABS: Anion Gap 6 (5-15); Blood Urea Nitrogen 12 mg/dL (7-18); Calcium 8.5 mg/dL (8.5-10.1); Carbon Dioxide 32 mmol/L (21-32); Chloride 103 mmol/L (98-107); Glucose 107 mg/dL (74-106); Potassium 3.6 mmol/L (3.5-5.1); Sodium 141 mmol/L (136-145)
[2019-03-23 07:19] LABS: GFR African American 1046 mL/min; GFR Non-African American 864 mL/min
--- NOTE | 2019-03-23 07:45 | NUR ---
Opening Note Assumed pt care from [facility] nurse. Pt is a/ox4 with no s/s of distress or SOB. Pt is currently laying in bed sleeping with ventilator currently on; no s/s of distress or SOB. Jevity is currently running at 30 mL/HR. Discussed POC with pt and pt's mother; verbalized understanding. Safety measures maintained with call light within reach, bed in lowest position and side rails up. Will continue to monitor for changes q1hr and prn.
--- NOTE | 2019-03-23 07:56 | NUR ---
[facility] Call [facility] called confirming that we still wished to transfer pt. Spoke with Maria De Jesus at the transfer center. She requested to speak with Dr Gunn for MD to MD communication for transfer. Will page Dr Gunn for request to speak to [facility]. Contact: Una at [facility] Transfer Center [phone] Option 3 Addendum: 03/23/19 at 0857 by HIWOT AGRAWAL RN RN Will notify hospitalist of need for MD to MD conversation for transfer.
[2019-03-23] MEDS: PIPERACILLIN-TAZOB 3.375GM 100 ML IV SCH ×3 (08:08→13:44)
--- NOTE | 2019-03-23 08:47 | NUR ---
Transfer: I called [facility] to see if [facility] has any beds and Ani stated they are still working on bed census. I called [facility] and they too are still working on their bed availability and will not know until 0930 hrs
[2019-03-23 09:00] VITALS: BP 96/50
[2019-03-23] MEDS: FAMOTIDINE (10MG/ML) 2ML VL IV SCH (09:04)
[2019-03-23] MEDS: ENOXAPARIN SOD 40 MG/0.4 ML SYRINGE SC SCH (09:05)
--- NOTE | 2019-03-23 09:50 | NUR ---
Respiratory note: PT TAKEN OFF VENT AND PLACED ON 35% COOL MIST AEROSOL TRACH COLLAR. SUCTIONED MODERATE , THIN, CREAM SECRETIONS.MOM AND SISTER AT BEDSIDE.
--- NOTE | 2019-03-23 10:23 | NUR ---
Free Water Request Pt's family is requesting that pt be placed on his current at home free water intake. Per pt's sister and mother, the pt receives about 150mL of free water through PEG tube. Communication noted from states that pt can continue with free water treatment. Will start first therapy at 1100.
--- NOTE | 2019-03-23 10:48 | NUR ---
Free Water 150mL of sterile water flushed through PEG tube. Pt tolerated free water well. Will continue to monitor. Pt placed back on continuous Jevity at 30mL/HR
--- NOTE | 2019-03-23 12:32 | NUR ---
Dr Greenwood At Bedside MD to see pt. MD plans to d/c pt home and have procedure as an outpatient. Family is requesting transportation to go home; will contact Record Keeper. MD also requests that pt's feeding be increased to 40mL since pt is tolerating feeding well. Will implement orders and follow through.
--- NOTE | 2019-03-23 12:36 | NUR ---
Increased Pt's Feeding to 40mL/HR Will continue to monitor.
[2019-03-23 13:01] VITALS: BP 96/50
[2019-03-23] MEDS: Jevity 1.2 Cal/Fiber 1 Liter GT SCH (14:37)
--- NOTE | 2019-03-23 15:26 | NUR ---
IV D/C'ed IV to pt's R hand d/c'ed. Catheter was removed fully intact. Site is asymptomatic. Pressure was applied to site for 3 minutes with gauze and then wrapped in coban. Pt instructed to keep dressing on for 30 minutes; pt verbalized understanding.
--- NOTE | 2019-03-23 15:39 | NUR ---
Tele Box D/C'ed and Sent Back to ICU Tele box 9 removed and sent back to ICU. Notified Tele staff of d/c and sending of monitor.
--- NOTE | 2019-03-23 15:42 | NUR ---
Pt D/C'ed Off Unit Pt discharged off unit via gurney provided by [facility] transportation. Upon d/c, pt is a/ox4 with no s/s of distress. Pt IV and tele box were discontinued prior to discharge. Pt has all belongings, education material, prescriptions and follow up information.
== END 2019-03-23 15:42 | disposition home or self-care (01) | DRG 720 ==
LOC: ER 19:49 → EDBD 19:49 → TELE 19:50 → TELE-EAST 03-14 12:26
PROVIDERS: ADMIT Hospitalist; ATTEND Internal Medicine Nephrology
PROC: 5A1955Z Respiratory Ventilation, Greater than 96 Consecutive Hours (ICD-10-PCS; principal; 2019-03-13)
PROC: 5A1945Z Respiratory Ventilation, 24-96 Consecutive Hours (ICD-10-PCS; 2019-03-21)
PROC: 5A1935Z Respiratory Ventilation, Less than 24 Consecutive Hours (ICD-10-PCS; 2019-03-23)
DX: A41.9 Sepsis, unspecified organism (principal); J69.0 Pneumonitis due to inhalation of food and vomit; Z99.11 Dependence on respirator [ventilator] status; K80.00 Calculus of gallbladder with acute cholecystitis without obstruction; R53.2 Functional quadriplegia; G71.01 Duchenne or Becker muscular dystrophy; Z93.0 Tracheostomy status; E11.9 Type 2 diabetes mellitus without complications; E83.42 Hypomagnesemia; I10 Essential (primary) hypertension; K59.00 Constipation, unspecified; D63.8 Anemia in other chronic diseases classified elsewhere; R94.5 Abnormal results of liver function studies; D68.9 Coagulation defect, unspecified; E87.1 Hypo-osmolality and hyponatremia; E87.6 Hypokalemia; Z79.899 Other long term (current) drug therapy; Z74.01 Bed confinement status
CPT/HCPCS: 31500; 36415; 71045; 76705; 78226; 80048; 80053; 80202; 81001; 82150; 83605; 83690; 83735; 85025; 85610; 87040; 87070; 87077; 87086; 87186; 87205; 94002; 94003; 94640; 94762; 96365; 96367; 96375; A4605; G0378; J2001; J2405; J2543; J3480; J3490

== ENCOUNTER 2019-12-15 13:49 | Inpatient (IN) | payer MEDICAID ==
[~2019-12-15] VITALS: Ht 170.2 cm; Wt 62.4 kg
[~2019-12-15 13:49] MED LIST: FAMO-12 GT; LEVO25TA6 GT; METO25TA5 GT
[2019-12-15 15:30] VITALS: BP 112/65
[2019-12-15] MEDS ORDERED: SODIUM CHLORIDE 0.9% 1,000 ML IVB ONE (17:00)
[2019-12-15] MEDS ORDERED: ZINC SULFATE 220mg CAP or TAB PO ONE (17:45)
[2019-12-15] MEDS ORDERED: AZITHROMYCIN 500MG/ 250ML 250 ML IV ONE (17:45)
[2019-12-15] MEDS ORDERED: ASCORBIC ACID 500 MG TAB PO ONE (17:45)
[2019-12-15 18:19] VITALS: BP 110/66
[2019-12-15 19:22] VITALS: BP 110/66
[2019-12-15 19:22] LABS: Basophils # (auto) 0 10 ^3/uL (0-0.2); Eosinophils # (auto) 0 10 ^3/uL (0-0.8); Eosinophils % (auto) 0.1 % (0.0-7.0); Mean Corpuscular Hgb Conc. 31.1 g/dL (32.0-36.0); Monocytes # (auto) 0.9 10 ^3/uL (0-1.3); Monocytes % (auto) 6.1 % (0.0-12.0)
[2019-12-15 19:24] LABS: Basophils % (auto) 0.1 % (0.0-2.0); Hematocrit 34.9 % (41.0-53.0); Hemoglobin 10.9 g/dL (13.5-17.5); Lymphocytes # (auto) 0.6 10 ^3/uL (0.4-5.4); Lymphocytes % (auto) 4.2 % (10.0-50.0); Mean Corpuscular Hemoglobin 24.6 pg (28.0-32.0); Mean Corpuscular Volume 78.9 fL (80.0-100.0); Neutrophils # (auto) 12.9 10 ^3/uL (1.6-8.6); Neutrophils % (auto) 89.5 % (37.0-80.0); Platelet Count (auto) 327 10^3/uL (140-450); Red Blood Cells 4.42 10^6/uL (4.5-5.90); White Blood Cell 14.4 10^3/uL (4.4-10.8)
[2019-12-15 19:38] LABS: Albumin 3.1 g/dL (3.4-5.0); Anion Gap 7 (5-15); Blood Urea Nitrogen 12 mg/dL (7-18); Calcium 9.3 mg/dL (8.5-10.1); Carbon Dioxide 30 mmol/L (21-32); Chloride 103 mmol/L (98-107); Glucose 97 mg/dL (74-106); Magnesium 1.8 mg/dL (1.6-2.6); Potassium 3.9 mmol/L (3.5-5.1); Sodium 140 mmol/L (136-145)
[2019-12-15 19:40] LABS: Alanine Aminotransferase 26 U/L (16-61); Aspartate Aminotransferase 19 U/L (15-37)
[2019-12-15 19:43] LABS: Alkaline Phosphatase 64 U/L (45-117); Bilirubin, Total 0.7 mg/dL (0.2-1.0); GFR African American 1037 mL/min; GFR Non-African American 857 mL/min; Total Protein 9.1 g/dL (6.4-8.2)
[2019-12-15] MEDS ORDERED: MORPHINE SULF INJ 2 MG/ML SYRINGE 1ML IV PRN ×2 (19:45)
[2019-12-15] MEDS ORDERED: NITROGLYCERIN 0.4 MG SL TAB SL PRN (19:45)
[2019-12-15] MEDS ORDERED: HYDROcodone-ACET 5/325MG TAB PO PRN (19:45)
[2019-12-15] MEDS ORDERED: ACETAMINOPHEN 500 MG TAB PO PRN (19:45)
[2019-12-15] MEDS ORDERED: ONDANSETRON HCL 4 MG/2 ML VIAL IV PRN (19:45)
[2019-12-15 19:53] LABS: INR 1.19 (0.9-1.15); Partial Thromboplastin Time 28.9 sec (23.0-31.2)
[2019-12-15 19:56] VITALS: BP 123/78
[2019-12-15] MEDS ORDERED: MORPHINE SULFATE 4 MG/ML SYR/VIAL IV ONE (20:45)
[2019-12-15] MEDS ORDERED: ONDANSETRON HCL 4 MG/2 ML VIAL IV ONE (20:45)
[2019-12-15 22:50] VITALS: BP 132/69
[2019-12-15] MEDS ORDERED: SODIUM CHLORIDE 0.9 % NEB SOLN 3ML NEB ONE (22:53)
[2019-12-16] VITALS (23 sets, daily range): BP systolic 90–128; BP diastolic 53–85
--- NOTE | 2019-12-16 01:21 | NUR ---
RECEIVED REPORT FROM NURSE SAMANO TO RESUME CARE OF PATIENT. AWAITING PATIENT ARRIVAL TO UNIT ROOM 261
--- NOTE | 2019-12-16 02:08 | NUR ---
FAMILY MEMBER PER BAIT DIGGER MEÑO PATIENT FAMILY MEMBER PROVIDES CARE FOR PATIENT AND IS TO REMAIN AT BEDSIDE AND NOT ALLOWED TO SWITCH OUT WITH OTHER FAMILY MEMBERS.
[2019-12-16] MEDS: Jevity 1.2 Cal/Fiber 1 Liter GT SCH (02:50)
[2019-12-16] MEDS: METOPROLOL TARTRATE 25 MG TAB PO SCH ×3 (03:22→21:44)
--- NOTE | 2019-12-16 04:00 | NUR ---
IN LINE SUCTIONED, PATIENT HAS THICK CREAM SECRETIONS. ORAL CARE GIVEN TO PATIENT PATIENT TOLERATED WELL. PATIENT FAMILY AT BEDSIDE
[2019-12-16 04:32] LABS: Basophils # (auto) 0 10 ^3/uL (0-0.2); Eosinophils # (auto) 0.1 10 ^3/uL (0-0.8); Lymphocytes # (auto) 1.4 10 ^3/uL (0.4-5.4); Monocytes # (auto) 0.7 10 ^3/uL (0-1.3); Neutrophils # (auto) 6.5 10 ^3/uL (1.6-8.6)
[2019-12-16 04:34] LABS: Basophils % (auto) 0.3 % (0.0-2.0); Hematocrit 32.9 % (41.0-53.0); Hemoglobin 10.5 g/dL (13.5-17.5); Mean Corpuscular Hemoglobin 24.8 pg (28.0-32.0); Mean Corpuscular Hgb Conc. 31.8 g/dL (32.0-36.0); Mean Corpuscular Volume 78.1 fL (80.0-100.0); Monocytes % (auto) 7.8 % (0.0-12.0); Neutrophils % (auto) 74.9 % (37.0-80.0); Nucleated Red Blood Cells % 0.1 %; Platelet Count (auto) 328 10^3/uL (140-450); Red Blood Cells 4.21 10^6/uL (4.5-5.90); Red Cell Distribution Width 18.2 % (11.8-14.3); White Blood Cell 8.6 10^3/uL (4.4-10.8)
[2019-12-16 04:53] LABS: Anion Gap 8 (5-15); Blood Urea Nitrogen 11 mg/dL (7-18); Calcium 9.4 mg/dL (8.5-10.1); Carbon Dioxide 27 mmol/L (21-32); Chloride 104 mmol/L (98-107); Glucose 75 mg/dL (74-106); Potassium 3.7 mmol/L (3.5-5.1); Sodium 139 mmol/L (136-145)
[2019-12-16 05:08] LABS: BUN/Creatinine Ratio 73.3; GFR African American 1037 mL/min; GFR Non-African American 857 mL/min
[2019-12-16] MEDS: ALBUTEROL SULF 2.5 MG/0.5ML(0.5%) NEB SOLN NEB SCH ×5 (08:17→22:33)
[2019-12-16] MEDS: IPRATROPIUM BROM 0.5 MG/2.5ML INH SOL NEB SCH ×5 (08:17→22:33)
--- NOTE | 2019-12-16 08:30 | NUR ---
DR. HARRISON IN TO SEE PT. NO NEW ORDERS RECEIVED YET. MD WILL GO BACK TO REVIEW PT'S CHART ALONG WITH PT'S HOME MEDS. MD ASSESS PT AND OBTAINED PT'S MEDICAL HX FROM PT AND PT'S SISTER.
--- NOTE | 2019-12-16 08:30 | NUR ---
LEONELA ATB. GIVEN PER PHARMACY. ATB MATCHING WITH MD ORDERS, MEDITECH NOT CROSSING OVER.
[2019-12-16] MEDS ORDERED: FAMOTIDINE 20 MG TAB PO SCH (10:00)
[2019-12-16] MEDS: FAMOTIDINE 20 MG TAB PO SCH (10:42)
--- NOTE | 2019-12-16 10:50 | NUR ---
TRACH CARE DONE AT THIS TIME. INNER CANNULA REPLACED, SITE CLEANED, CHANGED GAUZE WITHOUT INCIDENT. PT. TOLERATED WELL.
[2019-12-16] MEDS ORDERED: PIPERACILLIN-TAZOB 3.375GM 100 ML IV SCH ×2 (12:00)
[2019-12-16] MEDS: PIPERACILLIN-TAZOB 3.375GM 100 ML IV SCH ×2 (12:09→17:41)
--- NOTE | 2019-12-16 12:15 | NUR ---
PULMONARY CONSULTATION WITH DR. MEGAN GUZMAN IN TO SEE PT FOR PULMONARY. NO CHANGES ON CURRENT VENT SETTING. PT'S FAMILY REQUESTED TO HAVE TRACHEOTOMY EXCHANGED PRIOR TO PT BEING DISCHARGED FROM HOSPITAL. MD AGREED TO HAVE TRACHEOTOMY EXCHANGED TOMORROW WITH RT'S ASSISTANCE. PT'S FAMILY WILL BRING THE TRACH FOR TO REPLACE.
[2019-12-16] MEDS ORDERED: SODIUM CHLORIDE 0.9% 1,000 ML IV ONE (12:45)
[2019-12-16] MEDS ORDERED: LEVOTHYROXINE SODIUM 25 MCG TAB PEG ONE (13:00)
--- NOTE | 2019-12-16 14:00 | NUR ---
REPOSITIONED FOR COMFORT WITH PT'S SISTER'S ASSISTANCE. ORAL CARE PROVIDED PER VAP PROTOCOL. PT STILL HAVING COPIOUS TRACHEAL SECRETIONS.
[2019-12-16] MEDS ORDERED: SODIUM CHLORIDE 0.9 % NEB SOLN 3ML NEB ONE (15:12)
--- NOTE | 2019-12-16 18:00 | NUR ---
ORAL CARE RENDERED, REPOSITIONED FOR COMFORT WITH PT'S SISTERS ASSISTANCE. SCHEDULE ATB. GIVEN. PT DENIES ANY PAIN. PT STILL HAS COPIOUS TRACHEAL SECRETIONS.
--- NOTE | 2019-12-16 19:10 | NUR ---
RECEIVED REPORT FROM NURSE MAGGIE TO RESUME CARE OF PATIENT
--- NOTE | 2019-12-16 19:29 | NUR ---
END OF SHIFT REPORT GIVEN TO JADE CARTWRIGHT. CHART REVIEW DONE.
--- NOTE | 2019-12-16 19:49 | NUR ---
Opening Shift Note Assumed care of patient, awake and alert. No S/S of distress/SOB currently vented AC-14 TV-350 PEEP-5 FIO2 30% with 7.0 Fortex cuff or pain and discomfort. patient sister at bedside. patient continues on tube feeding via peg tube jevity 1.2 @ 40ml/hr no residual noted and tolerating well. aspiration precuations maintained with HOB above 30 degrees. Instructed on POC, trach swap tomorrow with Dr Adams and to call for assist PRN, patient and family member verbalizes understanding no questions will continue to monitor for changes Q1hr and PRN.
[2019-12-16] MEDS ORDERED: POLY33504 GT (20:15)
--- NOTE | 2019-12-16 20:20 | NUR ---
CONSTIPATION PATIENT STATES HE FEELS CONSTIPATED SISTER STATES PATIENT REGULARLY TAKE MIRALAX DAILY VIA GT TO HELP WITH HIS BOWELS. PAGED HOSPITALIST FOR ORDERS.
[2019-12-16] MEDS ORDERED: POLYETHYLENE GLYCOL 17 GM PWDR PO SCH (21:30)
[2019-12-16] MEDS: POLYETHYLENE GLYCOL 17 GM PWDR PO SCH (21:43)
--- NOTE | 2019-12-16 23:27 | NUR ---
SUCTIONED PATIENT VIA INLINE SUCTION, THICK YELLOW SECRETIONS NOTED. PATIENT TOLERATED WELL. RT AT BEDSIDE
[2019-12-17] VITALS (17 sets, daily range): BP systolic 94–153; BP diastolic 51–96
--- NOTE | 2019-12-17 01:29 | NUR ---
SUCTIONED PATIENT AND ORAL CARE DONE.
[2019-12-17 03:33] LABS: Basophils # (auto) 0 10 ^3/uL (0-0.2); Basophils % (auto) 0.4 % (0.0-2.0); Eosinophils # (auto) 0.2 10 ^3/uL (0-0.8); Hemoglobin 9.7 g/dL (13.5-17.5); Lymphocytes # (auto) 1.4 10 ^3/uL (0.4-5.4); Mean Corpuscular Hemoglobin 24.4 pg (28.0-32.0); Monocytes # (auto) 0.6 10 ^3/uL (0-1.3); Neutrophils # (auto) 5.4 10 ^3/uL (1.6-8.6); Red Blood Cells 3.99 10^6/uL (4.5-5.90); White Blood Cell 7.7 10^3/uL (4.4-10.8)
[2019-12-17 03:35] LABS: Eosinophils % (auto) 3.1 % (0.0-7.0); Hematocrit 31.1 % (41.0-53.0); Lymphocytes % (auto) 18.5 % (10.0-50.0); Mean Corpuscular Hgb Conc. 31.3 g/dL (32.0-36.0); Mean Corpuscular Volume 77.9 fL (80.0-100.0); Platelet Count (auto) 315 10^3/uL (140-450); Red Cell Distribution Width 17.8 % (11.8-14.3)
[2019-12-17 03:55] LABS: Anion Gap 4 (5-15); Blood Urea Nitrogen 9 mg/dL (7-18); Calcium 8.8 mg/dL (8.5-10.1); Carbon Dioxide 30 mmol/L (21-32); Chloride 102 mmol/L (98-107); Glucose 118 mg/dL (74-106); Magnesium 1.7 mg/dL (1.6-2.6); Potassium 3.8 mmol/L (3.5-5.1); Sodium 136 mmol/L (136-145)
[2019-12-17 04:22] LABS: GFR African American 1037 mL/min; GFR Non-African American 857 mL/min
--- NOTE | 2019-12-17 04:30 | NUR ---
SUCTIONED PATIENT AND ORAL CARE DONE. TURNED PATIENT. INFORMED FAMILY TO CALL FOR HELP WHEN NEEDED
[2019-12-17] MEDS: PIPERACILLIN-TAZOB 3.375GM 100 ML IV SCH ×5 (06:21→23:47)
[2019-12-17] MEDS: LEVOTHYROXINE SODIUM 25 MCG TAB PEG SCH (06:21)
[2019-12-17] MEDS: Jevity 1.2 Cal/Fiber 1 Liter GT SCH (06:57)
[2019-12-17] MEDS: ALBUTEROL SULF 2.5 MG/0.5ML(0.5%) NEB SOLN NEB SCH ×5 (07:13→22:00)
[2019-12-17] MEDS: IPRATROPIUM BROM 0.5 MG/2.5ML INH SOL NEB SCH ×5 (07:13→22:00)
[2019-12-17] MEDS: ENOXAPARIN SOD 30 MG/0.3 ML SYRINGE SC SCH (10:00)
[2019-12-17] MEDS: METOPROLOL TARTRATE 25 MG TAB PO SCH ×2 (10:00→22:00)
[2019-12-17] MEDS: FAMOTIDINE 20 MG TAB PO SCH (10:00)
--- NOTE | 2019-12-17 10:00 | NUR ---
Respiratory note: AT BEDSIDE FOR TRACH CHANGE. UNABLE TO PROCEED WITH PROCEDURE. TRACH HAD A LOT OF RESISTANCE. CUFF RE-INFLATED AND TRACH TIES PLACED BACK. PT WAS PLACED BACK ON VENT. WILL CONTINUE TO MONITOR PT.
[2019-12-17] MEDS ORDERED: ALBUTEROL SULF 2.5 MG/0.5ML(0.5%) NEB SOLN NEB PRN (11:15)
[2019-12-17] MEDS ORDERED: MAGNESIUM SULFATE 1GM/100ML 100 ML IV ONE ×2 (11:15→12:45)
--- NOTE | 2019-12-17 13:21 | NUR ---
Respiratory note: CHANGED PT'S REGULAR VENT CIRCUIT TO A HEATED CIRCUIT DUE TO THICK COPIOUS SECRETIONS. CIRCUITS CHANGES VENT SST WITHOUT INCIDENT. PT PLACED BACK ON VENT. WILL CONTINUE TO MONITOR PT.
--- NOTE | 2019-12-17 14:48 | NUR ---
PATIENT WENT FOR CT SACAN OF CHEST VIA BED AND TOLERATED WELL. DR ACOSTA CAMD AND ATTEMPTED TO REPLACE THE TRACH BUT UNABLE TO DO IT DUE TO RESISTANCE WHEN TRING TO PULL IT. SISTER AWARE.
--- NOTE | 2019-12-17 19:00 | NUR ---
Opening notes Assumed care, awake and oriented, with tracheostomy tube connected to vent, on jevity feeding via PEG tube at 40 ml/hr, PIV patent and intact, bed in lowest position with side rails up, bed alarm on. Sister at bedside. Encouraged to call if they need something. Will continue care.
--- NOTE | 2019-12-17 20:05 | NUR ---
Elimination/ hygiene Had moderate amount of soft stools, cleansed and kept dry and comfortable, repositioned for comfort.
[2019-12-17] MEDS: POLYETHYLENE GLYCOL 17 GM PWDR PO SCH (22:00)
[2019-12-18] VITALS (26 sets, daily range): BP systolic 99–125; BP diastolic 52–73
[2019-12-18] MEDS: IPRATROPIUM BROM 0.5 MG/2.5ML INH SOL NEB SCH ×5 (05:44→22:48)
[2019-12-18] MEDS: ALBUTEROL SULF 2.5 MG/0.5ML(0.5%) NEB SOLN NEB SCH ×5 (05:44→22:48)
[2019-12-18] MEDS: LEVOTHYROXINE SODIUM 25 MCG TAB PEG SCH (06:43)
[2019-12-18] MEDS: PIPERACILLIN-TAZOB 3.375GM 100 ML IV SCH ×3 (06:43→17:25)
[2019-12-18] MEDS: FAMOTIDINE 20 MG TAB PO SCH (10:02)
[2019-12-18] MEDS: METOPROLOL TARTRATE 25 MG TAB PO SCH ×2 (10:02→21:54)
[2019-12-18] MEDS: ENOXAPARIN SOD 30 MG/0.3 ML SYRINGE SC SCH (10:02)
--- NOTE | 2019-12-18 10:22 | NUR ---
TRACH CARE DONE VIA STERILE TECHNIQUE WITHOUT INCIDENT. INNER CANNULA AND DRAINING GAUZE REPLACED. TRACHEOSTOMY PORTEX # 7.0 IN SITU, PROPERLY SECURED AND IS PATENT. CLEANING AROUND STOMA. NO SKIN BREAKDOWN NOTED. SPARE UNIT AT TRACHEOSTOMY AT BEDSIDE ALONG WITH OBTURATOR. PT IS VENTILATOR DEPENDENT. PT ABLE TO UNDERSTAND AND FOLLOW INDICATIONS. TRACH SUCTION DONE FOR SMALL AMOUNT OF PALE SECRETION WITHOUT INCIDENT. WILL CONTINUE T MONITOR PT.
--- NOTE | 2019-12-18 14:35 | NUR ---
Nutrition Assessment Note please see attached link for complete assessment Est Energy needs BW [id number] kcals (23-25 kcal/kgBW r/t immobile), Est Protein needs: 63-75 gms/day (1.0-1.2 gm/kgBW) Will continue to monitor and reassess prn. Rec: EN support with Jevity @ 60 ml/hr per MD approval Addendum: 12/18/19 at [address] Amended: Links added.
--- NOTE | 2019-12-18 14:52 | NUR ---
PATIENT HAD 1 BM LARGE AMOUNT PASTY BROWN COLOR. PATIENT DENIES ANY DISCOMFORT.
--- NOTE | 2019-12-18 19:15 | NUR ---
Opening Shift Note Received shift report and Assumed care of patient, awake and alert, resting comfortably in bed patient is vent dependent with settings AC 14 Vt 350, FIO2 30% and PEEP of 5, patient O2 Sate of 97% patient shows no s/s of distress at this time, bed is in the lowest position bed rails up x3 with brake applied.
--- NOTE | 2019-12-18 19:45 | NUR ---
Bed Change complete bed change performed upon assessment patient had Moderate light brown soft BM, patient provided a warm soap bath and karon-area cleansed and clean linens provided, patient request gown change for morning. patient repositioned in bed with extremities in anatomically correct and comfortable position for patient.
--- NOTE | 2019-12-18 22:00 | NUR ---
PEG Tube Flushed peg tube and provided night medications, Peg Tube is patient no s/s of distress from the patient while administering medication.
[2019-12-18] MEDS: POLYETHYLENE GLYCOL 17 GM PWDR PO SCH (22:20)
[2019-12-19] VITALS (15 sets, daily range): BP systolic 96–126; BP diastolic 54–76
[2019-12-19] MEDS: PIPERACILLIN-TAZOB 3.375GM 100 ML IV SCH ×2 (00:03→05:51)
--- NOTE | 2019-12-19 00:23 | NUR ---
Elevated Temp Patient Temp at this time is 99.[address] at this time.
--- NOTE | 2019-12-19 01:09 | NUR ---
Temp Reassessment patient temp at this time is 99.6, Ice packs applied to bilateral axiliary.
--- NOTE | 2019-12-19 02:20 | NUR ---
Patient Cleaned patient found to have a moderate loose brown bowel movement, patient cleaned with warm soap water, and dottie replaced, patient tolerated process with minimal distress.
--- NOTE | 2019-12-19 05:00 | NUR ---
Morning Care Patient provided clean gown, and face wash, patient given soap and water bath earlier in shift, patient canister tubing and irrigation tray replaced.
[2019-12-19] MEDS: Jevity 1.2 Cal/Fiber 1 Liter GT SCH (05:12)
[2019-12-19] MEDS: IPRATROPIUM BROM 0.5 MG/2.5ML INH SOL NEB SCH ×5 (06:04→22:51)
[2019-12-19] MEDS: ALBUTEROL SULF 2.5 MG/0.5ML(0.5%) NEB SOLN NEB SCH ×5 (06:04→22:51)
--- NOTE | 2019-12-19 06:46 | NUR ---
Will provide shift report and endorse care patient remained stable through out the shift with stable VS, patient remains of vent with settings of AC 12 FIO2 30 Vt 350 and PEEP of 5, patient has Jevity infusing at 40 an hour with zero residual, patient remains alert and oriented without s/s of distress.
--- NOTE | 2019-12-19 07:15 | NUR ---
Assumed care of pt., report received per JADE Abbasi. No distress noted, pt. attached to central monitor and reading sinus rhythm 70's /s ectopy, VSS, will cont.to monitor for any changes, call gaelana in reach, family at bedside, assessment ongoing. Addendum: 12/19/19 at 0751 by ANGELES TEMPLETON RN RN Assumed care of pt., report received per JADE Angela. No distress noted, pt. attached to central monitor and reading sinus rhythm 70's /s ectopy, VSS, will cont.to monitor for any changes, call galeana in reach, family at bedside, assessment ongoing.
[2019-12-19] MEDS: LEVOTHYROXINE SODIUM 25 MCG TAB PEG SCH (08:05)
[2019-12-19] MEDS: FAMOTIDINE 20 MG TAB PO SCH (11:49)
[2019-12-19] MEDS: ENOXAPARIN SOD 30 MG/0.3 ML SYRINGE SC SCH (11:49)
[2019-12-19] MEDS: METOPROLOL TARTRATE 25 MG TAB PO SCH ×2 (11:51→21:51)
[2019-12-19] MEDS: MEROPENEM 1GM IVPB 100 ML IV SCH ×2 (11:53→20:00)
[2019-12-19] MEDS: CLINDAMYCIN 600MG IV 50 ML IV SCH ×2 (15:07→21:51)
--- NOTE | 2019-12-19 18:00 | NUR ---
pt. refusing to be turned from left side to right, pt. requesting to be kept on left side addition 2 hours, pt was explained to risk of not turning, pt. verbalizes understanding and cont.to request to be left alone for now, will cont.to monitor for any changes, call galeana in reach, family at bedside, assessment ongoing.
--- NOTE | 2019-12-19 19:15 | NUR ---
opening note patient aox4, with trach on ventilator stating >99%spo2 on bedside monitor. sr 85 with bbb. bp 97//61. 22g to right hand patent. peg tube running jevity 1.2@ 40 ml/hr. tolerating well. bed locked and in lowest position. sister at bed side. repositioned for comfort. call light within reach. updated patient and family on poc. all fall and safety precautions in place.
[2019-12-19] MEDS: POLYETHYLENE GLYCOL 17 GM PWDR PO SCH (21:51)
--- NOTE | 2019-12-19 21:52 | NUR ---
complete linen change provided small bm cleaned, skin reassessed and no new break down noted.
[2019-12-20] VITALS (8 sets, daily range): BP systolic 89–120; BP diastolic 47–73
[2019-12-20] MEDS: MEROPENEM 1GM IVPB 100 ML IV SCH ×2 (04:00→12:39)
[2019-12-20 04:03] LABS: Basophils # (auto) 0 10 ^3/uL (0-0.2); Basophils % (auto) 0.3 % (0.0-2.0); Eosinophils # (auto) 0.4 10 ^3/uL (0-0.8); Eosinophils % (auto) 4.3 % (0.0-7.0)
[2019-12-20 04:05] LABS: Hematocrit 32.3 % (41.0-53.0); Hemoglobin 10.1 g/dL (13.5-17.5); Lymphocytes # (auto) 1.6 10 ^3/uL (0.4-5.4); Lymphocytes % (auto) 18.9 % (10.0-50.0); Mean Corpuscular Hemoglobin 24.6 pg (28.0-32.0); Mean Corpuscular Hgb Conc. 31.5 g/dL (32.0-36.0); Mean Corpuscular Volume 78.2 fL (80.0-100.0); Monocytes # (auto) 0.7 10 ^3/uL (0-1.3); Neutrophils # (auto) 5.6 10 ^3/uL (1.6-8.6); Neutrophils % (auto) 67.5 % (37.0-80.0); Platelet Count (auto) 321 10^3/uL (140-450); Red Blood Cells 4.12 10^6/uL (4.5-5.90); White Blood Cell 8.2 10^3/uL (4.4-10.8)
[2019-12-20 04:54] LABS: Anion Gap 7 (5-15); Blood Urea Nitrogen 8 mg/dL (7-18); Calcium 8.7 mg/dL (8.5-10.1); Carbon Dioxide 28 mmol/L (21-32); Chloride 103 mmol/L (98-107); Glucose 97 mg/dL (74-106); Magnesium 2.3 mg/dL (1.6-2.6); Potassium 4.3 mmol/L (3.5-5.1); Sodium 138 mmol/L (136-145)
[2019-12-20 05:04] LABS: BUN/Creatinine Ratio 53.3; GFR African American 1037 mL/min; GFR Non-African American 857 mL/min
[2019-12-20] MEDS: CLINDAMYCIN 600MG IV 50 ML IV SCH (06:40)
[2019-12-20] MEDS: LEVOTHYROXINE SODIUM 25 MCG TAB PEG SCH (06:41)
--- NOTE | 2019-12-20 07:00 | NUR ---
REPORT RECEIVED FROM HOME STAGING SPECIALIST NURSE. PATIENT RESTING IN BED AT THIS TIME. RESPIRATIONS EVEN AND UNLABORED, CHRONIC TRACH CONNECTED TO VENTILATOR. NO SIGNS OF ACUTE DISTRESS NOTED. CALL LIGHT IN REACH, BED IN LOW POSITION. SISTER AT BEDSIDE. WILL CONTINUE TO MONITOR.
[2019-12-20] MEDS: METOPROLOL TARTRATE 25 MG TAB PO SCH (09:32)
[2019-12-20] MEDS: FAMOTIDINE 20 MG TAB PO SCH (09:44)
[2019-12-20] MEDS: ENOXAPARIN SOD 30 MG/0.3 ML SYRINGE SC SCH (09:44)
[2019-12-20] MEDS ORDERED: FUROSEMIDE 20 MG/2 ML VIAL IV ONE (10:00)
--- NOTE | 2019-12-20 10:25 | NUR ---
DR HARRISON AT BEDSIDE TO ASSESS PATIENT AND DISCUSS PLAN OF CARE. PER MD PATIENT MAY POSSIBLY DISCHARGE TODAY PENDING DR GUZMAN ASSESSMENT. ALL ORDERS NOTED IN CHART.
--- NOTE | 2019-12-20 10:50 | NUR ---
PAGED SPOKE TO DR GUZMAN ABOUT PATIENTS POSSIBLE DISCHARGE. PER OK TO PLACE PATIENT ON TRACH COLLAR. ORDER PLACED AND INFORMED RESPIRATORY THERAPIST.
--- NOTE | 2019-12-20 11:55 | NUR ---
DR GUZMAN AT BEDSIDE TO ASSESS PATIENT AND DISCUSS PLAN OF CARE. PER MD PATIENT CAN BE DISCHARGED HOME. MD TO INFORM DR HARRISON. ALL ORDERS NOTED IN CHART. SPOKE TO SISTER AT BEDSIDE AND ASKED HOW PATIENT IS TRANSPORTED. PER SISTER PATIENT IS NORMALLY TRANSPORTED VIA [facility], WILL INFORM CORINA FROM CASE MANAGEMENT.
--- NOTE | 2019-12-20 12:08 | NUR ---
Nutrition Followup Note Pt wt is 62.4 kg Pt's curtain was drawn and door closed with RN at bedside when rounded this morning. Pt is with Jevity 1.2 @ 40ml/hr, received 1000 ml on 12/18-, tolerated well per RN doc. Est Energy needs BW [id number] kcals (23-25 kcal/kgBW r/t immobile), Est Protein needs: 63-75 gms/day (1.0-1.2 gm/kgBW) Will continue to monitor and reassess prn. Rec: EN support with Jevity @ 60 ml/hr per MD approval LABS: ALB 3.1 L GI: Pt had 2 BM on 12/19 per RN doc BS: 14 mod risk. Refer to wound assessment report for full details. PES: 1) Altered nutrition related lab values r.t current chronic medical condition aeb hyperglycemia, mild hypoalb 2) Impaired swallowing r.t chronic medical condition aeb pt`s on vent with PEG Comments 1) advance EN support with Jevity @ 60 ml/hr per MD approval 2) continue current plan of care
[2019-12-20] MEDS ORDERED: LEVO750T8 PO (12:21)
[2019-12-20] MEDS ORDERED: SACC250C PO (12:21)
--- NOTE | 2019-12-20 12:25 | NUR ---
Respiratory note: PT TAKEN OFF VENT AND PLACED ON TRACH COLLAR TRIAL. PT TOLERATING WELL. WILL CONTINUE TO MONITOR PT. HR 109, 36, POX 97%, BP 113/69.
--- NOTE | 2019-12-20 13:50 | NUR ---
PAGED DR HARRISON TO OBTAIN ORDER FOR TRANSPORT FOR DISCHARGE HOME.
--- NOTE | 2019-12-20 14:30 | NUR ---
SPOKE TO DR HARRISON ABOUT PATIENT TRANSPORT. PER OK TO PLACE SOCIAL SERVICE CONSULT FOR [facility] TRANSPORTATION.
--- NOTE | 2019-12-20 14:51 | NUR ---
Assessment: Patient is a 24 year old male who is alert and oriented. Per patient his emergency contact is his father Cresencio [phone]. Patient's sister Jordyn was at bedside. Jordyn informed me that prior to admission patient lived at home with his family and required total care at home. Per patient Jordyn patients mother is his [facility] caregiver at home. Patient has muscular dystrophy. Jordyn informed me that he uses a wheelchair, electric wheelchair, shower chair, Hospital bed and freda lift at home. Patient has a good family support system at home. Patient will return back home to his prior living arrangements post discharge. Patient will need [facility] transport on discharge. Radha piano case and bench assembler will set up transport. I informed Jordyn of patients ss consult for [facility] for safety, medication management, and vitals. Per Jordyn patient does not need home health services, that family takes care of his medications and vitals. JADE Abbasi has been notified. I informed the patient that he has a right to privacy. I informed Jordyn the patient has a right to speak to a manager social regarding his care and to participate in his discharge plan. Jordyn verbalized understanding and agreed with his discharge plan. Addendum: 12/20/19 at 1456 by Kandi GRIMES Amended: Links added.
--- NOTE | 2019-12-20 14:54 | NUR ---
Faxed Transportation request to [facility] Transportation Department [phone], Called and spoke with Kanwal Car Greaser gave update on the patient. Stated she would arrange the transport for 1630 with [facility] and hope they can accommodate since the patient needs a CCT due to the ventilator. Called the nurse Ayleen and made her aware.
--- NOTE | 2019-12-20 15:38 | NUR ---
Respiratory note: PT PLACED BACK ON VENT. PT BECAME TACHY AND SAID HE WAS GETTING TIRED ON TRACH COLAR. WILL ENDORSE PT'S CARE TO NOC RT.
--- NOTE | 2019-12-20 17:48 | NUR ---
DISCHARGE PATIENT DISCHARGED HOME VIA [facility] CONNECTED TO PORTABLE VENTILATOR AND MONITOR. VITAL SIGNS STABLE. HR 119, RR22, SATURATIONS 98%, BP 118/63. SISTER AT BEDSIDE FOR TRANSPORT. IV REMOVED FROM RIGHT HAND CATHETER INTACT. DISCONTINUED TUBE FEEDINGS AT THIS TIME. MEDICATIONS CALLED INTO PATIENT PHARMACY, ALL DISCHARGE PAPERWORK GIVEN TO SISTER NIDIA AT BEDSIDE.
== END 2019-12-20 17:45 | disposition home health service (06) | DRG 720 ==
LOC: ER 13:49 → EDBD 13:49 → TELE 13:50 → DOU IN ICU 23:24
PROVIDERS: ADMIT Nurse Practitioner Acute Care; ATTEND Internal Medicine
PROC: 5A1955Z Respiratory Ventilation, Greater than 96 Consecutive Hours (ICD-10-PCS; principal; 2019-12-15)
DX: A41.9 Sepsis, unspecified organism (principal); J69.0 Pneumonitis due to inhalation of food and vomit; I47.1 Supraventricular tachycardia; G71.00 Muscular dystrophy, unspecified; E03.9 Hypothyroidism, unspecified; K21.9 Gastro-esophageal reflux disease without esophagitis; I10 Essential (primary) hypertension; Z20.828 Contact with and (suspected) exposure to other viral communicable diseases; Z79.899 Other long term (current) drug therapy; Z74.01 Bed confinement status; Z82.49 Family history of ischemic heart disease and other diseases of the circulatory system; Z83.3 Family history of diabetes mellitus; Z87.01 Personal history of pneumonia (recurrent); Z93.1 Gastrostomy status; Z99.11 Dependence on respirator [ventilator] status; J96.20 Acute and chronic respiratory failure, unspecified whether with hypoxia or hypercapnia; Z93.0 Tracheostomy status
CPT/HCPCS: 36415; 36600; 71045; 71250; 80048; 80053; 82805; 83605; 83735; 83880; 84443; 85025; 85610; 85730; 87040; 87070; 87077; 87081; 87186; 87205; 87426; 87804; 94002; 94003; 94640; A4618; G0378; J2185; J2543; J3490

== ENCOUNTER 2021-01-02 04:43 | Emergency (ER) | payer MEDICAID ==
[~2021-01-02] VITALS: Ht 147.3 cm; Wt 61.2 kg
[~2021-01-02 04:43] MED LIST changes: +LEVO750T8 PO; +POLY33504 GT; +SACC250C PO
[2021-01-02 04:50] VITALS: BP 123/71
[2021-01-02] MEDS ORDERED: cefTRIAXone 1GM/50ML D5W 50 ML IV ONE (06:30)
[2021-01-02 06:49] VITALS: BP 115/70
[2021-01-02 07:23] LABS: Albumin 3.1 g/dL (3.4-5.0); Anion Gap 5 (5-15); Blood Urea Nitrogen 14 mg/dL (7-18); Calcium 8.6 mg/dL (8.5-10.1); Carbon Dioxide 27 mmol/L (21-32); Chloride 108 mmol/L (98-107); Glucose 110 mg/dL (74-106); Potassium 3.8 mmol/L (3.5-5.1); Sodium 140 mmol/L (136-145)
[2021-01-02 07:25] LABS: Basophils # (auto) 0 10 ^3/uL (0-0.2); Basophils % (auto) 0.2 % (0.0-2.0); Eosinophils # (auto) 0 10 ^3/uL (0-0.8); Eosinophils % (auto) 0.4 % (0.0-7.0); Hematocrit 38.4 % (41.0-53.0); Lymphocytes # (auto) 0.8 10 ^3/uL (0.4-5.4); Lymphocytes % (auto) 8.9 % (10.0-50.0); Mean Corpuscular Hemoglobin 29.9 pg (28.0-32.0); Mean Corpuscular Hgb Conc. 33.8 g/dL (32.0-36.0); Mean Corpuscular Volume 88.2 fL (80.0-100.0); Monocytes # (auto) 0.6 10 ^3/uL (0-1.3); Monocytes % (auto) 6.2 % (0.0-12.0); Neutrophils # (auto) 7.8 10 ^3/uL (1.6-8.6); Neutrophils % (auto) 84.3 % (37.0-80.0); Red Blood Cells 4.35 10^6/uL (4.5-5.90); Red Cell Distribution Width 15.9 % (11.8-14.3); White Blood Cell 9.3 10^3/uL (4.4-10.8)
[2021-01-02 07:34] LABS: Alanine Aminotransferase 33 U/L (16-61); Alkaline Phosphatase 77 U/L (45-117); Aspartate Aminotransferase 15 U/L (15-37); Bilirubin, Total 0.7 mg/dL (0.2-1.0)
[2021-01-02 08:07] LABS: BUN/Creatinine Ratio 93.3; GFR African American 1029 mL/min; GFR Non-African American 851 mL/min
[2021-01-02 11:00] VITALS: BP 102/63
[2021-01-02 15:10] VITALS: BP 106/55
[2021-01-02 18:21] VITALS: BP 110/58
== END 2021-01-02 18:36 | disposition home or self-care (01) ==
LOC: EDBD 04:43 → ER 04:43
DX: K94.23 Gastrostomy malfunction (principal)
CPT/HCPCS: 36415; 71045; 80053; 85025; 96365; 99285; J0696; 94002; 94003

== ENCOUNTER 2021-07-23 15:19 | Inpatient (IN) | payer MEDICAID ==
[~2021-07-23] VITALS: Ht 170.2 cm; Wt 71.7 kg
[2021-07-23 16:32] LABS: Basophils # (auto) 0 10 ^3/uL (0-0.2); Basophils % (auto) 0.2 % (0.0-2.0); Eosinophils # (auto) 0.1 10 ^3/uL (0-0.8); Eosinophils % (auto) 1.1 % (0.0-7.0); Hematocrit 35.8 % (41.0-53.0); Hemoglobin 11.9 g/dL (13.5-17.5); Lymphocytes # (auto) 1.3 10 ^3/uL (0.4-5.4); Lymphocytes % (auto) 11.4 % (10.0-50.0); Mean Corpuscular Hemoglobin 28.1 pg (28.0-32.0); Mean Corpuscular Hgb Conc. 33.4 g/dL (32.0-36.0); Monocytes # (auto) 0.8 10 ^3/uL (0-1.3); Monocytes % (auto) 7.1 % (0.0-12.0); Neutrophils # (auto) 9.2 10 ^3/uL (1.6-8.6); Neutrophils % (auto) 80.2 % (37.0-80.0); Nucleated Red Blood Cells % 0.1 %; Red Blood Cells 4.26 10^6/uL (4.5-5.90); Red Cell Distribution Width 15.8 % (11.8-14.3); White Blood Cell 11.5 10^3/uL (4.4-10.8)
[2021-07-23 16:49] LABS: Alanine Aminotransferase 47 U/L (16-61); Albumin 3.2 g/dL (3.4-5.0); Anion Gap 9 (5-15); Aspartate Aminotransferase 26 U/L (15-37); BUN/Creatinine Ratio 86.7; Blood Urea Nitrogen 13 mg/dL (7-18); Calcium 9.2 mg/dL (8.5-10.1); Carbon Dioxide 28 mmol/L (21-32); Chloride 103 mmol/L (98-107); GFR African American 1022 mL/min; GFR Non-African American 844 mL/min; Glucose 84 mg/dL (74-106); Magnesium 2.3 mg/dL (1.6-2.6); Potassium 4.2 mmol/L (3.5-5.1); Sodium 140 mmol/L (136-145)
[2021-07-23 16:51] LABS: Alkaline Phosphatase 80 U/L (45-117); Bilirubin, Total 0.4 mg/dL (0.2-1.0); Total Protein 8.9 g/dL (6.4-8.2)
[2021-07-23] MEDS ORDERED: AZITHROMYCIN 500MG/ 250ML 250 ML IV ONE (17:00)
[2021-07-23] MEDS ORDERED: MORPHINE SULFATE INJ 2 MG/ml SYRG IV PRN (18:30)
[2021-07-23] MEDS ORDERED: ONDANSETRON HCL 4 MG/2 ML VIAL IV PRN (18:30)
[2021-07-23] MEDS ORDERED: cefTRIAXone 1GM/50ML D5W 50 ML IV ONE (18:30)
[2021-07-23 19:57] LABS: Urine WBC None Seen /hpf (0 - 3)
[2021-07-23 20:07] LABS: Urine Bacteria NONE SEEN /hpf (None Seen); Urine Blood Negative /uL (Negative)
[2021-07-23] MEDS ORDERED: ACETAMINOPHEN 325 MG TAB PO ONE (20:15)
[2021-07-23] MEDS: ACETAMINOPHEN 325 MG TAB PO PRN (20:24)
[2021-07-23 20:33] VITALS: BP 104/63
[2021-07-23 22:16] VITALS: BP 108/55
[2021-07-23] MEDS: FAMOTIDINE 20 MG TAB GT SCH (23:46)
[2021-07-24] VITALS (30 sets, daily range): BP systolic 90–120; BP diastolic 46–63
[2021-07-24] MEDS: LEVOTHYROXINE SODIUM 25 MCG TAB GT SCH (07:00)
[2021-07-24 07:17] LABS: Basophils # (auto) 0 10 ^3/uL (0-0.2); Basophils % (auto) 0.2 % (0.0-2.0); Eosinophils # (auto) 0.1 10 ^3/uL (0-0.8); Eosinophils % (auto) 0.8 % (0.0-7.0); Hematocrit 38.6 % (41.0-53.0); Hemoglobin 12.3 g/dL (13.5-17.5); Lymphocytes # (auto) 1.4 10 ^3/uL (0.4-5.4); Lymphocytes % (auto) 13.3 % (10.0-50.0); Mean Corpuscular Hemoglobin 27.8 pg (28.0-32.0); Mean Corpuscular Hgb Conc. 31.8 g/dL (32.0-36.0); Mean Corpuscular Volume 87.5 fL (80.0-100.0); Neutrophils # (auto) 7.8 10 ^3/uL (1.6-8.6); Neutrophils % (auto) 75.7 % (37.0-80.0); Red Blood Cells 4.41 10^6/uL (4.5-5.90); Red Cell Distribution Width 15.8 % (11.8-14.3); White Blood Cell 10.3 10^3/uL (4.4-10.8)
[2021-07-24] MEDS: cefTRIAXone 1GM/50ML D5W 50 ML IV SCH (09:00)
[2021-07-24] MEDS: AZITHROMYCIN 500MG/ 250ML 250 ML IV SCH (10:00)
[2021-07-24] MEDS: METOPROLOL TARTRATE 25 MG TAB GT SCH (10:00)
[2021-07-24] MEDS ORDERED: POLYETHYLENE GLYCOL 17 GM GT SCH (10:00)
[2021-07-24] MEDS: ENOXAPARIN SOD 40 MG/0.4 ML SYRINGE SC SCH (10:00)
[2021-07-24] MEDS: POLYETHYLENE GLYCOL 17 GM PWDR GT SCH (10:00)
[2021-07-24] MEDS: FAMOTIDINE 20 MG TAB GT SCH ×2 (10:00→21:46)
[2021-07-24] MEDS: ALBUTEROL SULF 2.5 MG/0.5ML(0.5%) NEB SOLN NEB PRN ×4 (10:45→22:27)
[2021-07-24] MEDS: ACETYLCYSTEINE 10 %(100MG/ML) SOL 4ML NEB SCH ×3 (13:58→22:27)
[2021-07-24 16:25] LABS: Calcium 8.9 mg/dL (8.5-10.1); Chloride 102 mmol/L (98-107); Potassium 3.7 mmol/L (3.5-5.1); Sodium 137 mmol/L (136-145)
[2021-07-24 16:28] LABS: Alanine Aminotransferase 50 U/L (16-61); Albumin 3.2 g/dL (3.4-5.0); Anion Gap 13 (5-15); Blood Urea Nitrogen 11 mg/dL (7-18); Carbon Dioxide 22 mmol/L (21-32); Glucose 99 mg/dL (74-106)
[2021-07-24 16:31] LABS: Alkaline Phosphatase 88 U/L (45-117); Aspartate Aminotransferase 41 U/L (15-37); Bilirubin, Total 0.9 mg/dL (0.2-1.0)
[2021-07-24 16:35] LABS: BUN/Creatinine Ratio 73.3; GFR African American 1022 mL/min; GFR Non-African American 844 mL/min
[2021-07-24] MEDS: LORazepam 2MG/ML-1ML VIAL IV PRN (23:14)
[2021-07-25] VITALS (82 sets, daily range): BP systolic 97–138; BP diastolic 49–77
[2021-07-25] MEDS: ACETAMINOPHEN 325 MG TAB PO PRN ×3 (02:09→22:09)
[2021-07-25] MEDS: ALBUTEROL SULF 2.5 MG/0.5ML(0.5%) NEB SOLN NEB PRN ×4 (02:41→21:33)
[2021-07-25] MEDS: ACETYLCYSTEINE 10 %(100MG/ML) SOL 4ML NEB SCH ×4 (02:41→21:33)
[2021-07-25 05:04] LABS: Basophils # (auto) 0 10 ^3/uL (0-0.2); Basophils % (auto) 0.2 % (0.0-2.0); Eosinophils # (auto) 0 10 ^3/uL (0-0.8); Hematocrit 37.6 % (41.0-53.0); Hemoglobin 12.4 g/dL (13.5-17.5); Lymphocytes # (auto) 0.8 10 ^3/uL (0.4-5.4); Lymphocytes % (auto) 5.6 % (10.0-50.0); Mean Corpuscular Hemoglobin 28.1 pg (28.0-32.0); Mean Corpuscular Hgb Conc. 33.1 g/dL (32.0-36.0); Monocytes % (auto) 6.6 % (0.0-12.0); Neutrophils # (auto) 13.2 10 ^3/uL (1.6-8.6); Neutrophils % (auto) 87.6 % (37.0-80.0); Red Blood Cells 4.42 10^6/uL (4.5-5.90); Red Cell Distribution Width 15.6 % (11.8-14.3)
[2021-07-25 05:21] LABS: Anion Gap 13 (5-15); Blood Urea Nitrogen 9 mg/dL (7-18); Carbon Dioxide 23 mmol/L (21-32); Chloride 103 mmol/L (98-107); GFR African American 1022 mL/min; GFR Non-African American 844 mL/min; Glucose 77 mg/dL (74-106); Potassium 3.3 mmol/L (3.5-5.1); Sodium 139 mmol/L (136-145)
[2021-07-25] MEDS: LEVOTHYROXINE SODIUM 25 MCG TAB GT SCH (05:44)
[2021-07-25] MEDS: LORazepam 2MG/ML-1ML VIAL IV PRN (05:44)
[2021-07-25] MEDS: cefTRIAXone 1GM/50ML D5W 50 ML IV SCH (08:22)
[2021-07-25] MEDS: AZITHROMYCIN 500MG/ 250ML 250 ML IV SCH (09:43)
[2021-07-25] MEDS: FAMOTIDINE 20 MG TAB GT SCH ×2 (09:44→22:08)
[2021-07-25] MEDS: METOPROLOL TARTRATE 25 MG TAB GT SCH (09:45)
[2021-07-25] MEDS: POLYETHYLENE GLYCOL 17 GM PWDR GT SCH (10:00)
[2021-07-25] MEDS: ENOXAPARIN SOD 40 MG/0.4 ML SYRINGE SC SCH (10:22)
[2021-07-25] MEDS: POTASSIUM CHL 20MEQ/100ML 100 ML IV SCH ×2 (12:24→14:38)
[2021-07-26] VITALS (72 sets, daily range): BP systolic 102–170; BP diastolic 50–83
[2021-07-26] MEDS: ACETYLCYSTEINE 10 %(100MG/ML) SOL 4ML NEB SCH ×6 (02:02→22:08)
[2021-07-26] MEDS: ALBUTEROL SULF 2.5 MG/0.5ML(0.5%) NEB SOLN NEB PRN ×6 (02:02→22:08)
[2021-07-26 05:04] LABS: Basophils # (auto) 0 10 ^3/uL (0-0.2); Basophils % (auto) 0.1 % (0.0-2.0); Eosinophils # (auto) 0 10 ^3/uL (0-0.8); Eosinophils % (auto) 0.1 % (0.0-7.0); Hematocrit 34.6 % (41.0-53.0); Hemoglobin 11.5 g/dL (13.5-17.5); Lymphocytes # (auto) 0.5 10 ^3/uL (0.4-5.4); Lymphocytes % (auto) 3.8 % (10.0-50.0); Mean Corpuscular Hemoglobin 28.2 pg (28.0-32.0); Mean Corpuscular Hgb Conc. 33.2 g/dL (32.0-36.0); Monocytes % (auto) 7.5 % (0.0-12.0); Neutrophils # (auto) 11.8 10 ^3/uL (1.6-8.6); Neutrophils % (auto) 88.5 % (37.0-80.0); Red Blood Cells 4.07 10^6/uL (4.5-5.90); Red Cell Distribution Width 15.4 % (11.8-14.3); White Blood Cell 13.3 10^3/uL (4.4-10.8)
[2021-07-26 05:16] LABS: BUN/Creatinine Ratio 37.5; Calcium 8.8 mg/dL (8.5-10.1); Potassium 3.6 mmol/L (3.5-5.1)
[2021-07-26] MEDS: LEVOTHYROXINE SODIUM 25 MCG TAB GT SCH (07:00)
[2021-07-26] MEDS: cefTRIAXone 1GM/50ML D5W 50 ML IV SCH (09:00)
[2021-07-26] MEDS: METOPROLOL TARTRATE 25 MG TAB GT SCH (10:00)
[2021-07-26] MEDS: POLYETHYLENE GLYCOL 17 GM PWDR GT SCH (10:00)
[2021-07-26] MEDS: FAMOTIDINE 20 MG TAB GT SCH ×2 (10:00→22:03)
[2021-07-26] MEDS: ENOXAPARIN SOD 40 MG/0.4 ML SYRINGE SC SCH (10:01)
[2021-07-26] MEDS: AZITHROMYCIN 500MG/ 250ML 250 ML IV SCH (10:24)
[2021-07-26] MEDS: ACETAMINOPHEN 325 MG TAB PO PRN (12:34)
[2021-07-26] MEDS ORDERED: ZERBAXA 1.5 GM IV STA (15:48)
[2021-07-26] MEDS: CEFTAZIDIME-AVIBACTAM 2.5gm in D5W 100 ML IV SCH (22:03)
[2021-07-27] MEDS: ACETYLCYSTEINE 10 %(100MG/ML) SOL 4ML NEB SCH ×6 (02:22→22:01)
[2021-07-27] MEDS: ALBUTEROL SULF 2.5 MG/0.5ML(0.5%) NEB SOLN NEB PRN ×6 (02:22→22:01)
[2021-07-27 05:15] VITALS: BP 121/76
[2021-07-27] MEDS: LEVOTHYROXINE SODIUM 25 MCG TAB GT SCH (06:44)
[2021-07-27] MEDS: CEFTAZIDIME-AVIBACTAM 2.5gm in D5W 100 ML IV SCH ×3 (06:44→22:00)
[2021-07-27 09:00] VITALS: BP 114/74
[2021-07-27] MEDS: FAMOTIDINE 20 MG TAB GT SCH ×2 (11:45→13:25)
[2021-07-27] MEDS: ENOXAPARIN SOD 40 MG/0.4 ML SYRINGE SC SCH (11:45)
[2021-07-27] MEDS: POLYETHYLENE GLYCOL 17 GM PWDR GT SCH (11:45)
[2021-07-27] MEDS: METOPROLOL TARTRATE 25 MG TAB GT SCH (11:46)
[2021-07-27 13:00] VITALS: BP 107/66
[2021-07-27 17:00] VITALS: BP 116/65
[2021-07-27] MEDS: Vital AF 1.2 Cal 1 liter bottle GT SCH (20:37)
[2021-07-27 22:00] VITALS: BP 116/77
[2021-07-27] MEDS ORDERED: FAMOTIDINE 20 MG TAB GT ONE (22:15)
[2021-07-28] VITALS (8 sets, daily range): BP systolic 105–120; BP diastolic 53–74
[2021-07-28] MEDS: ACETYLCYSTEINE 10 %(100MG/ML) SOL 4ML NEB SCH ×6 (02:09→22:12)
[2021-07-28] MEDS: ALBUTEROL SULF 2.5 MG/0.5ML(0.5%) NEB SOLN NEB PRN ×6 (02:09→22:12)
[2021-07-28] MEDS: CEFTAZIDIME-AVIBACTAM 2.5gm in D5W 100 ML IV SCH ×3 (05:00→17:11)
[2021-07-28] MEDS: LEVOTHYROXINE SODIUM 25 MCG TAB GT SCH (06:13)
[2021-07-28 07:10] LABS: Basophils # (auto) 0 10 ^3/uL (0-0.2); Basophils % (auto) 0.6 % (0.0-2.0); Eosinophils # (auto) 0.4 10 ^3/uL (0-0.8); Eosinophils % (auto) 6.1 % (0.0-7.0); Hemoglobin 12.2 g/dL (13.5-17.5); Lymphocytes # (auto) 1.1 10 ^3/uL (0.4-5.4); Lymphocytes % (auto) 15.6 % (10.0-50.0); Mean Corpuscular Hemoglobin 28.5 pg (28.0-32.0); Mean Corpuscular Volume 83.9 fL (80.0-100.0); Monocytes # (auto) 0.7 10 ^3/uL (0-1.3); Monocytes % (auto) 9.1 % (0.0-12.0); Neutrophils # (auto) 4.9 10 ^3/uL (1.6-8.6); Neutrophils % (auto) 68.6 % (37.0-80.0); Red Blood Cells 4.29 10^6/uL (4.5-5.90); Red Cell Distribution Width 15.9 % (11.8-14.3); White Blood Cell 7.2 10^3/uL (4.4-10.8)
[2021-07-28 07:17] LABS: Anion Gap 4 (5-15); Blood Urea Nitrogen 11 mg/dL (7-18); Calcium 9.2 mg/dL (8.5-10.1); Carbon Dioxide 35 mmol/L (21-32); Chloride 100 mmol/L (98-107); Glucose 132 mg/dL (74-106); Potassium 4.2 mmol/L (3.5-5.1); Sodium 139 mmol/L (136-145)
[2021-07-28 07:39] LABS: BUN/Creatinine Ratio 73.3; GFR African American 1022 mL/min; GFR Non-African American 844 mL/min
[2021-07-28] MEDS: METOPROLOL TARTRATE 25 MG TAB GT SCH (10:18)
[2021-07-28] MEDS: POLYETHYLENE GLYCOL 17 GM PWDR GT SCH (10:19)
[2021-07-28] MEDS: ENOXAPARIN SOD 40 MG/0.4 ML SYRINGE SC SCH (10:19)
[2021-07-28] MEDS: FAMOTIDINE 20 MG TAB GT SCH ×2 (10:19→22:29)
[2021-07-28] MEDS ORDERED: SODIUM CHLORIDE 0.9 % NEB SOLN 3ML NEB ONE (18:20)
[2021-07-28] MEDS: Vital AF 1.2 Cal 1 liter bottle GT SCH (20:15)
[2021-07-29] MEDS: ACETYLCYSTEINE 10 %(100MG/ML) SOL 4ML NEB SCH ×5 (02:31→19:02)
[2021-07-29] MEDS: ALBUTEROL SULF 2.5 MG/0.5ML(0.5%) NEB SOLN NEB PRN ×5 (02:31→19:02)
[2021-07-29 05:00] VITALS: BP 111/71
[2021-07-29] MEDS: CEFTAZIDIME-AVIBACTAM 2.5gm in D5W 100 ML IV SCH ×3 (05:57→23:26)
[2021-07-29] MEDS: LEVOTHYROXINE SODIUM 25 MCG TAB GT SCH (05:58)
[2021-07-29 06:07] LABS: Anion Gap 3 (5-15); BUN/Creatinine Ratio 93.3; Blood Urea Nitrogen 14 mg/dL (7-18); Calcium 9.2 mg/dL (8.5-10.1); Carbon Dioxide 36 mmol/L (21-32); Chloride 100 mmol/L (98-107); GFR African American 1022 mL/min; GFR Non-African American 844 mL/min; Glucose 123 mg/dL (74-106); Potassium 4.4 mmol/L (3.5-5.1); Sodium 139 mmol/L (136-145)
[2021-07-29 06:12] LABS: Basophils # (auto) 0 10 ^3/uL (0-0.2); Basophils % (auto) 0.7 % (0.0-2.0); Eosinophils # (auto) 0.6 10 ^3/uL (0-0.8); Eosinophils % (auto) 7.5 % (0.0-7.0); Hematocrit 38.3 % (41.0-53.0); Hemoglobin 12.9 g/dL (13.5-17.5); Lymphocytes # (auto) 1.3 10 ^3/uL (0.4-5.4); Lymphocytes % (auto) 17.8 % (10.0-50.0); Mean Corpuscular Hgb Conc. 33.5 g/dL (32.0-36.0); Mean Corpuscular Volume 83.3 fL (80.0-100.0); Monocytes # (auto) 0.6 10 ^3/uL (0-1.3); Monocytes % (auto) 8.5 % (0.0-12.0); Neutrophils # (auto) 4.9 10 ^3/uL (1.6-8.6); Neutrophils % (auto) 65.5 % (37.0-80.0); Nucleated Red Blood Cells % 0.1 %; Red Cell Distribution Width 15.8 % (11.8-14.3); White Blood Cell 7.5 10^3/uL (4.4-10.8)
[2021-07-29] MEDS: METOPROLOL TARTRATE 25 MG TAB GT SCH (10:30)
[2021-07-29] MEDS: FAMOTIDINE 20 MG TAB GT SCH ×2 (10:30→23:24)
[2021-07-29] MEDS: POLYETHYLENE GLYCOL 17 GM PWDR GT SCH (10:31)
[2021-07-29] MEDS: ENOXAPARIN SOD 40 MG/0.4 ML SYRINGE SC SCH (10:31)
[2021-07-29 13:00] VITALS: BP 116/53
[2021-07-29] MEDS ORDERED: SODIUM CHLORIDE 0.9 % NEB SOLN 3ML NEB ONE (16:31)
[2021-07-29 17:00] VITALS: BP 122/75
[2021-07-29 19:20] VITALS: BP 123/79
[2021-07-29] MEDS: Vital AF 1.2 Cal 1 liter bottle GT SCH (19:24)
[2021-07-29 22:00] VITALS: BP 120/65
[2021-07-30] MEDS: ACETYLCYSTEINE 10 %(100MG/ML) SOL 4ML NEB SCH ×7 (00:32→22:44)
[2021-07-30] MEDS: ALBUTEROL SULF 2.5 MG/0.5ML(0.5%) NEB SOLN NEB PRN ×3 (00:32→22:44)
[2021-07-30 05:00] VITALS: BP 120/74
[2021-07-30 06:08] LABS: Basophils # (auto) 0.1 10 ^3/uL (0-0.2); Basophils % (auto) 0.6 % (0.0-2.0); Eosinophils # (auto) 0.5 10 ^3/uL (0-0.8); Eosinophils % (auto) 4.6 % (0.0-7.0); Hematocrit 38.3 % (41.0-53.0); Lymphocytes # (auto) 1.3 10 ^3/uL (0.4-5.4); Lymphocytes % (auto) 12.5 % (10.0-50.0); Mean Corpuscular Hemoglobin 28.2 pg (28.0-32.0); Mean Corpuscular Hgb Conc. 33.9 g/dL (32.0-36.0); Mean Corpuscular Volume 83.3 fL (80.0-100.0); Monocytes # (auto) 0.8 10 ^3/uL (0-1.3); Monocytes % (auto) 8.2 % (0.0-12.0); Neutrophils # (auto) 7.5 10 ^3/uL (1.6-8.6); Neutrophils % (auto) 74.1 % (37.0-80.0); Red Cell Distribution Width 16.1 % (11.8-14.3); White Blood Cell 10.2 10^3/uL (4.4-10.8)
[2021-07-30 06:26] LABS: Anion Gap 5 (5-15); Blood Urea Nitrogen 16 mg/dL (7-18); Calcium 9.5 mg/dL (8.5-10.1); Carbon Dioxide 34 mmol/L (21-32); Chloride 100 mmol/L (98-107); Glucose 117 mg/dL (74-106); Sodium 139 mmol/L (136-145)
[2021-07-30 06:30] LABS: BUN/Creatinine Ratio 106.7; GFR African American 1022 mL/min; GFR Non-African American 844 mL/min
[2021-07-30] MEDS: CEFTAZIDIME-AVIBACTAM 2.5gm in D5W 100 ML IV SCH ×2 (06:47→19:54)
[2021-07-30] MEDS: LEVOTHYROXINE SODIUM 25 MCG TAB GT SCH (06:48)
[2021-07-30 09:05] VITALS: BP 116/74
[2021-07-30] MEDS: POLYETHYLENE GLYCOL 17 GM PWDR GT SCH (10:00)
[2021-07-30] MEDS: ENOXAPARIN SOD 40 MG/0.4 ML SYRINGE SC SCH (10:40)
[2021-07-30] MEDS: FAMOTIDINE 20 MG TAB GT SCH ×2 (10:41→22:58)
[2021-07-30] MEDS: METOPROLOL TARTRATE 25 MG TAB GT SCH (10:41)
[2021-07-30 12:30] VITALS: BP 123/76
[2021-07-30 17:02] VITALS: BP 130/77
[2021-07-30 18:34] VITALS: BP 130/77
[2021-07-30] MEDS: Vital AF 1.2 Cal 1 liter bottle GT SCH (20:05)
[2021-07-30 21:00] VITALS: BP 101/64
[2021-07-31 00:10] VITALS: BP 101/64
[2021-07-31] MEDS: ACETYLCYSTEINE 10 %(100MG/ML) SOL 4ML NEB SCH ×6 (02:00→22:29)
[2021-07-31] MEDS: ALBUTEROL SULF 2.5 MG/0.5ML(0.5%) NEB SOLN NEB PRN ×6 (03:32→22:29)
[2021-07-31 05:26] VITALS: BP 129/82
[2021-07-31 06:01] LABS: Anion Gap 3 (5-15); Blood Urea Nitrogen 15 mg/dL (7-18); Calcium 9.4 mg/dL (8.5-10.1); Carbon Dioxide 34 mmol/L (21-32); Chloride 102 mmol/L (98-107); Glucose 100 mg/dL (74-106); Potassium 4.2 mmol/L (3.5-5.1); Sodium 139 mmol/L (136-145)
[2021-07-31 06:16] LABS: Basophils # (auto) 0 10 ^3/uL (0-0.2); Basophils % (auto) 0.4 % (0.0-2.0); Eosinophils # (auto) 0.4 10 ^3/uL (0-0.8); Eosinophils % (auto) 3.7 % (0.0-7.0); Hematocrit 38.1 % (41.0-53.0); Hemoglobin 12.6 g/dL (13.5-17.5); Lymphocytes # (auto) 1.4 10 ^3/uL (0.4-5.4); Lymphocytes % (auto) 13.1 % (10.0-50.0); Mean Corpuscular Hemoglobin 28.1 pg (28.0-32.0); Mean Corpuscular Hgb Conc. 33.2 g/dL (32.0-36.0); Mean Corpuscular Volume 84.5 fL (80.0-100.0); Monocytes # (auto) 0.7 10 ^3/uL (0-1.3); Monocytes % (auto) 6.4 % (0.0-12.0); Neutrophils % (auto) 76.4 % (37.0-80.0); Red Cell Distribution Width 15.9 % (11.8-14.3); White Blood Cell 10.5 10^3/uL (4.4-10.8)
[2021-07-31] MEDS: CEFTAZIDIME-AVIBACTAM 2.5gm in D5W 100 ML IV SCH ×3 (06:38→21:01)
[2021-07-31] MEDS: LEVOTHYROXINE SODIUM 25 MCG TAB GT SCH (06:39)
[2021-07-31 06:43] LABS: GFR African American 1022 mL/min; GFR Non-African American 844 mL/min
[2021-07-31 09:00] VITALS: BP 126/75
[2021-07-31] MEDS: METOPROLOL TARTRATE 25 MG TAB GT SCH (09:43)
[2021-07-31] MEDS: POLYETHYLENE GLYCOL 17 GM PWDR GT SCH (10:00)
[2021-07-31] MEDS: FAMOTIDINE 20 MG TAB GT SCH ×2 (10:39→21:02)
[2021-07-31] MEDS: ENOXAPARIN SOD 40 MG/0.4 ML SYRINGE SC SCH (10:40)
[2021-07-31] MEDS ORDERED: ceFAZolin 1GM/50ML 50 ML IV ONE (11:30)
[2021-07-31 13:00] VITALS: BP 121/74
[2021-07-31 16:46] VITALS: BP 108/69
[2021-07-31 22:00] VITALS: BP 119/77
[2021-08-01] MEDS: ALBUTEROL SULF 2.5 MG/0.5ML(0.5%) NEB SOLN NEB PRN ×4 (02:22→18:26)
[2021-08-01] MEDS: ACETYLCYSTEINE 10 %(100MG/ML) SOL 4ML NEB SCH ×5 (02:22→18:26)
[2021-08-01 05:00] VITALS: BP 123/73
[2021-08-01 05:50] LABS: INR 1.24 (0.9-1.15); Partial Thromboplastin Time 36.9 sec (23.6-33.0)
[2021-08-01] MEDS: LEVOTHYROXINE SODIUM 25 MCG TAB GT SCH (06:25)
[2021-08-01] MEDS: CEFTAZIDIME-AVIBACTAM 2.5gm in D5W 100 ML IV SCH ×2 (06:25→16:01)
[2021-08-01 06:35] LABS: Basophils # (auto) 0 10 ^3/uL (0-0.2); Basophils % (auto) 0.5 % (0.0-2.0); Eosinophils # (auto) 0.5 10 ^3/uL (0-0.8); Eosinophils % (auto) 6.1 % (0.0-7.0); Hematocrit 39.5 % (41.0-53.0); Hemoglobin 12.9 g/dL (13.5-17.5); Lymphocytes # (auto) 1.3 10 ^3/uL (0.4-5.4); Lymphocytes % (auto) 15.4 % (10.0-50.0); Mean Corpuscular Hemoglobin 28.2 pg (28.0-32.0); Mean Corpuscular Hgb Conc. 32.6 g/dL (32.0-36.0); Mean Corpuscular Volume 86.6 fL (80.0-100.0); Monocytes # (auto) 0.5 10 ^3/uL (0-1.3); Monocytes % (auto) 6.4 % (0.0-12.0); Neutrophils # (auto) 6.1 10 ^3/uL (1.6-8.6); Neutrophils % (auto) 71.6 % (37.0-80.0); Nucleated Red Blood Cells % 0.1 %; Red Blood Cells 4.56 10^6/uL (4.5-5.90); Red Cell Distribution Width 15.9 % (11.8-14.3); White Blood Cell 8.5 10^3/uL (4.4-10.8)
[2021-08-01 08:00] VITALS: BP 126/75
[2021-08-01 08:53] VITALS: BP 122/71
[2021-08-01] MEDS: POLYETHYLENE GLYCOL 17 GM PWDR GT SCH (10:00)
[2021-08-01] MEDS: ENOXAPARIN SOD 40 MG/0.4 ML SYRINGE SC SCH (10:00)
[2021-08-01 14:00] VITALS: BP 121/74
[2021-08-01] MEDS ORDERED: MIDAZOLAM HCL 2MG/2ML 2ml VIAL (1mg/ml) ONE (14:00)
[2021-08-01] MEDS ORDERED: fentaNYL CITRATE 100 MCG/2 ML VL ONE (14:00)
[2021-08-01] MEDS ORDERED: PROPOFOL 10 MG/ML 20 ML IV ONE (14:21)
[2021-08-01 17:00] VITALS: BP 133/85
[2021-08-01] MEDS: FAMOTIDINE 20 MG TAB GT SCH (17:16)
[2021-08-01] MEDS: METOPROLOL TARTRATE 25 MG TAB GT SCH (17:16)
== END 2021-08-01 20:35 | disposition home or self-care (01) | DRG 130 ==
LOC: EDBD 15:19 → ER 15:19 → TELE 18:19 → DOU IN ICU 07-24 02:50 → TELE-EAST 07-26 16:17
PROVIDERS: ADMIT Registered Nurse; ATTEND Internal Medicine Pulmonary Disease
PROC: 5A1955Z Respiratory Ventilation, Greater than 96 Consecutive Hours (ICD-10-PCS; principal; 2021-07-23)
PROC: 0DP68UZ Removal of Feeding Device from Stomach, Via Natural or Artificial Opening Endoscopic (ICD-10-PCS; 2021-08-01)
PROC: 0DH63UZ Insertion of Feeding Device into Stomach, Percutaneous Approach (ICD-10-PCS; 2021-08-01)
DX: J15.6 Pneumonia due to other Gram-negative bacteria (principal); K94.22 Gastrostomy infection; D63.8 Anemia in other chronic diseases classified elsewhere; G71.00 Muscular dystrophy, unspecified; K94.23 Gastrostomy malfunction; J96.11 Chronic respiratory failure with hypoxia; Z99.11 Dependence on respirator [ventilator] status; E03.9 Hypothyroidism, unspecified; I10 Essential (primary) hypertension; Y83.3 Surgical operation with formation of external stoma as the cause of abnormal reaction of the patient, or of later complication, without mention of misadventure at the time of the procedure; Z20.822 Contact with and (suspected) exposure to COVID-19; Z83.3 Family history of diabetes mellitus; Z82.49 Family history of ischemic heart disease and other diseases of the circulatory system; Z16.24 Resistance to multiple antibiotics
CPT/HCPCS: 36415; 36600; 71045; 80048; 80053; 81001; 82805; 83605; 83735; 83880; 85025; 85610; 85730; 87040; 87070; 87077; 87081; 87186; 87205; 87804; 93005; 94002; 94003; 94640; 94762; 96360; 97110; 97163; G0378; J0690; J0696; J0714; J2250; J2405; J2704; J3480; J7060

== ENCOUNTER 2021-11-24 07:36 | Emergency (ER) | payer MEDICAID ==
[~2021-11-24] VITALS: Ht 160 cm; Wt 150.0 kg
[~2021-11-24 07:36] MED LIST changes: -LEVO750T8 PO
[2021-11-24 10:08] LABS: Urine Amorphous Crystal FEW /hpf (None Seen); Urine Bacteria NONE SEEN /hpf (None Seen); Urine Blood Negative /uL (Negative); Urine Specific Gravity 1.007 (1.001-1.035); Urine WBC <1 /hpf (0 - 3)
[2021-11-24 10:19] LABS: Alcohol, Urine < 3.0 mg/dL (0-10); Amphetamine Screen, Urine NEGATIVE (NEGATIVE); Barbiturate Scree,Urine NEGATIVE (NEGATIVE); Benzodiazephine Screen, Urine NEGATIVE (NEGATIVE); Cannabinoid Screen, Urine NEGATIVE (NEGATIVE); Cocaine Screen, Urine NEGATIVE (NEGATIVE); Opiate Scree,Urine NEGATIVE (NEGATIVE); Phencyclidine Screen, Urine NEGATIVE (NEGATIVE)
[2021-11-24 13:00] VITALS: BP 104/62
== END 2021-11-24 14:35 | disposition home or self-care (01) ==
LOC: EDBD 07:36 → ER 07:36
DX: J95.03 Malfunction of tracheostomy stoma (principal); G82.50 Quadriplegia, unspecified; I10 Essential (primary) hypertension; E03.9 Hypothyroidism, unspecified; Z87.39 Personal history of other diseases of the musculoskeletal system and connective tissue
CPT/HCPCS: 71045; 80307; 81001; 87070; 87077; 87186; 87205; 94002

== ENCOUNTER 2022-01-12 12:31 | Inpatient (IN) | payer MEDICAID ==
[~2022-01-12] VITALS: Ht 167.6 cm; Wt 80.1 kg
[2022-01-12] MEDS ORDERED: ALBUTEROL SULF 2.5 MG/0.5ML(0.5%) NEB SOLN NEB ONE (13:45)
[2022-01-12 14:41] LABS: Basophils # (auto) 0 10 ^3/uL (0-0.2); Basophils % (auto) 0.1 % (0.0-2.0); Eosinophils # (auto) 0.1 10 ^3/uL (0-0.8); Eosinophils % (auto) 0.6 % (0.0-7.0); Hematocrit 38.4 % (41.0-53.0); Hemoglobin 12.7 g/dL (13.5-17.5); Lymphocytes # (auto) 0.7 10 ^3/uL (0.4-5.4); Lymphocytes % (auto) 5.4 % (10.0-50.0); Mean Corpuscular Hemoglobin 28.8 pg (28.0-32.0); Mean Corpuscular Volume 87.3 fL (80.0-100.0); Monocytes # (auto) 0.6 10 ^3/uL (0-1.3); Monocytes % (auto) 4.5 % (0.0-12.0); Neutrophils # (auto) 12.2 10 ^3/uL (1.6-8.6); Neutrophils % (auto) 89.4 % (37.0-80.0); Red Cell Distribution Width 16.7 % (11.8-14.3); White Blood Cell 13.6 10^3/uL (4.4-10.8)
[2022-01-12 14:52] VITALS: BP 105/61
[2022-01-12 15:17] LABS: Alanine Aminotransferase 39 U/L (16-61); Albumin 3.3 g/dL (3.4-5.0); Anion Gap 7 (5-15); Aspartate Aminotransferase 24 U/L (15-37); BUN/Creatinine Ratio 106.7; Blood Urea Nitrogen 16 mg/dL (7-18); Carbon Dioxide 28 mmol/L (21-32); Chloride 105 mmol/L (98-107); GFR African American 1022 mL/min; GFR Non-African American 844 mL/min; Glucose 104 mg/dL (74-106); Potassium 4.1 mmol/L (3.5-5.1); Sodium 140 mmol/L (136-145)
[2022-01-12 15:18] LABS: Urine Bacteria NONE SEEN /hpf (None Seen); Urine Blood Negative /uL (Negative); Urine Mucus FEW (None Seen); Urine Specific Gravity 1.027 (1.001-1.035); Urine WBC 1 /hpf (0 - 3)
[2022-01-12 15:19] LABS: Alkaline Phosphatase 78 U/L (45-117); Bilirubin, Total 0.6 mg/dL (0.2-1.0); Total Protein 8.8 g/dL (6.4-8.2)
[2022-01-12 15:33] VITALS: BP 114/55
[2022-01-12 17:59] VITALS: BP 112/63
[2022-01-12] MEDS ORDERED: PIPERACILLIN-TAZOB 3.375GM 100 ML IV ONE (18:45)
[2022-01-12] MEDS ORDERED: VANCOMYCIN PER PHARMACY 0 MG IV SCH (18:45)
[2022-01-12 20:29] VITALS: BP 117/62
[2022-01-12] MEDS ORDERED: DexAMETHasone SOD PHOS 10MG/1ML VIAL INJ IV ONE (20:45)
[2022-01-12] MEDS ORDERED: diphenhdrAMINE HCL 50 MG/1 ML VL IV ONE (20:45)
[2022-01-12] MEDS ORDERED: ACETAMINOPHEN 500 MG TAB PO ONE (20:45)
[2022-01-12] MEDS ORDERED: SODIUM CHLORIDE 0.9% 1,000 ML IV ONE (20:45)
[2022-01-12] MEDS ORDERED: ACETAMINOPHEN 325 MG TAB PO PRN (21:00)
[2022-01-12] MEDS ORDERED: DOCUSATE SOD 100 MG CAP PO PRN (21:00)
[2022-01-12] MEDS ORDERED: HYDROcodone-ACET 5/325MG TAB PO PRN (21:00)
[2022-01-12] MEDS ORDERED: NITROGLYCERIN 0.4 MG SL TAB SL PRN (21:45)
[2022-01-12] MEDS ORDERED: ACETAMINOPHEN 650 MG RECT SUPP PR PRN ×2 (21:45→22:20)
[2022-01-12] MEDS ORDERED: MORPHINE SULFATE INJ 2 MG/ml SYRG IV PRN (21:45)
[2022-01-12] MEDS ORDERED: AZITHROMYCIN 500MG/ 250ML 250 ML IV ONE (21:45)
[2022-01-12] MEDS ORDERED: BISACODYL 10 MG RECT SUPP PR PRN (22:00)
[2022-01-12] MEDS: LEVOTHYROXINE SODIUM 25 MCG TAB GT SCH (22:00)
[2022-01-12] MEDS ORDERED: ALBUTEROL SULF 2.5 MG/0.5ML(0.5%) NEB SOLN NEB PRN (22:00)
[2022-01-12] MEDS ORDERED: IPRATROPIUM BROM 0.5 MG/2.5ML INH SOL NEB PRN (22:00)
[2022-01-12 22:04] VITALS: BP 108/55
[2022-01-12] MEDS ORDERED: GASTROGRAFIN 30 ML SOL ONE (22:08)
[2022-01-13] VITALS (22 sets, daily range): BP systolic 102–126; BP diastolic 32–69
[2022-01-13 06:33] LABS: Basophils # (auto) 0 10 ^3/uL (0-0.2); Basophils % (auto) 0.1 % (0.0-2.0); Eosinophils # (auto) 0 10 ^3/uL (0-0.8); Hematocrit 36.7 % (41.0-53.0); Hemoglobin 12.1 g/dL (13.5-17.5); Lymphocytes # (auto) 0.6 10 ^3/uL (0.4-5.4); Lymphocytes % (auto) 3.9 % (10.0-50.0); Mean Corpuscular Hgb Conc. 32.9 g/dL (32.0-36.0); Mean Corpuscular Volume 88.3 fL (80.0-100.0); Monocytes # (auto) 0.3 10 ^3/uL (0-1.3); Neutrophils # (auto) 14.4 10 ^3/uL (1.6-8.6); Red Blood Cells 4.16 10^6/uL (4.5-5.90); Red Cell Distribution Width 16.6 % (11.8-14.3); White Blood Cell 15.3 10^3/uL (4.4-10.8)
[2022-01-13 06:56] LABS: Chloride 108 mmol/L (98-107); Potassium 3.6 mmol/L (3.5-5.1); Sodium 141 mmol/L (136-145)
[2022-01-13] MEDS ORDERED: LEVOTHYROXINE SODIUM 25 MCG TAB PO SCH (07:00)
[2022-01-13 07:04] LABS: Alanine Aminotransferase 39 U/L (16-61); Albumin 3.1 g/dL (3.4-5.0); Alkaline Phosphatase 153 U/L (45-117); Anion Gap 6 (5-15); Aspartate Aminotransferase 25 U/L (15-37); Blood Urea Nitrogen 11 mg/dL (7-18); Carbon Dioxide 27 mmol/L (21-32); Glucose 105 mg/dL (74-106); Total Protein 8.3 g/dL (6.4-8.2)
[2022-01-13 07:10] LABS: BUN/Creatinine Ratio 73.3; GFR African American 1022 mL/min; GFR Non-African American 844 mL/min
[2022-01-13] MEDS: LEVOTHYROXINE SODIUM 25 MCG TAB GT SCH (07:32)
[2022-01-13] MEDS: cefTRIAXone 1GM/50ML D5W 50 ML IV SCH (08:32)
[2022-01-13] MEDS: AZITHROMYCIN 500MG/ 250ML 250 ML IV SCH (09:42)
[2022-01-13] MEDS: ONDANSETRON HCL 4 MG/2 ML VIAL IV PRN (16:25)
[2022-01-13] MEDS ORDERED: Vital AF 1.2 Cal 1 liter bottle GT SCH (17:30)
[2022-01-14] VITALS (32 sets, daily range): BP systolic 108–139; BP diastolic 61–81
[2022-01-14] MEDS: IPRATROPIUM BROM 0.5 MG/2.5ML INH SOL NEB SCH ×4 (00:04→18:03)
[2022-01-14] MEDS: ALBUTEROL SULF 2.5 MG/0.5ML(0.5%) NEB SOLN NEB SCH ×4 (00:04→18:03)
[2022-01-14] MEDS ORDERED: PANTOPRAZOLE 40 MG/10 ML VIAL INJ IV ONE ×2 (03:45→04:00)
[2022-01-14] MEDS: LEVOTHYROXINE SODIUM 25 MCG TAB GT SCH (08:00)
[2022-01-14] MEDS: PANTOPRAZOLE 40 MG/10 ML VIAL INJ IV SCH (10:01)
[2022-01-14] MEDS: cefTRIAXone 1GM/50ML D5W 50 ML IV SCH (10:01)
[2022-01-14] MEDS: AZITHROMYCIN 500MG/ 250ML 250 ML IV SCH (10:45)
[2022-01-14] MEDS ORDERED: ACETAMINOPHEN 650 mg PER 20.3 mL UD GT ONE (12:00)
[2022-01-14] MEDS: ONDANSETRON HCL 4 MG/2 ML VIAL IV PRN ×2 (15:58→23:13)
[2022-01-15] VITALS (34 sets, daily range): BP systolic 103–122; BP diastolic 58–78
[2022-01-15] MEDS: ALBUTEROL SULF 2.5 MG/0.5ML(0.5%) NEB SOLN NEB SCH ×5 (00:16→18:00)
[2022-01-15] MEDS: IPRATROPIUM BROM 0.5 MG/2.5ML INH SOL NEB SCH ×6 (00:16→23:51)
[2022-01-15 05:36] LABS: Calcium 9.1 mg/dL (8.5-10.1)
[2022-01-15 05:43] LABS: Basophils # (auto) 0.1 10 ^3/uL (0-0.2); Basophils % (auto) 0.7 % (0.0-2.0); Eosinophils # (auto) 0 10 ^3/uL (0-0.8); Eosinophils % (auto) 0.1 % (0.0-7.0); Hematocrit 38.8 % (41.0-53.0); Hemoglobin 12.7 g/dL (13.5-17.5); Lymphocytes # (auto) 0.7 10 ^3/uL (0.4-5.4); Lymphocytes % (auto) 4.9 % (10.0-50.0); Mean Corpuscular Hemoglobin 29.5 pg (28.0-32.0); Mean Corpuscular Hgb Conc. 32.8 g/dL (32.0-36.0); Mean Corpuscular Volume 89.8 fL (80.0-100.0); Monocytes # (auto) 0.8 10 ^3/uL (0-1.3); Monocytes % (auto) 5.8 % (0.0-12.0); Neutrophils # (auto) 12.3 10 ^3/uL (1.6-8.6); Neutrophils % (auto) 88.5 % (37.0-80.0); Nucleated Red Blood Cells % 0.1 %; Red Blood Cells 4.32 10^6/uL (4.5-5.90); Red Cell Distribution Width 16.7 % (11.8-14.3); White Blood Cell 13.9 10^3/uL (4.4-10.8)
[2022-01-15 05:47] LABS: BUN/Creatinine Ratio 39.1; Bilirubin, Total 0.8 mg/dL (0.2-1.0); Potassium 2.7 mmol/L (3.5-5.1); Total Protein 8.2 g/dL (6.4-8.2)
[2022-01-15] MEDS ORDERED: POTASSIUM EFFERVESENT TAB 25 MEQ GT ONE (06:30)
[2022-01-15] MEDS: LEVOTHYROXINE SODIUM 25 MCG TAB GT SCH (07:00)
[2022-01-15] MEDS: cefTRIAXone 1GM/50ML D5W 50 ML IV SCH (09:38)
[2022-01-15] MEDS: AZITHROMYCIN 500MG/ 250ML 250 ML IV SCH (10:26)
[2022-01-15] MEDS: PANTOPRAZOLE 40 MG/10 ML VIAL INJ IV SCH (10:26)
[2022-01-15] MEDS ORDERED: ACETAMINOPHEN 650 mg PER 20.3 mL UD ONE (15:35)
[2022-01-15] MEDS ORDERED: ACETAMINOPHEN 650 mg PER 20.3 mL UD PO PRN (15:45)
[2022-01-15] MEDS ORDERED: HYDROcodone-ACET 5/325MG TAB PO PRN (18:45)
[2022-01-15] MEDS: LEVALBUTEROL HCL 1.25 MG/3 ML NEB NEB SCH (23:51)
[2022-01-16] VITALS (33 sets, daily range): BP systolic 97–128; BP diastolic 57–83
[2022-01-16 05:13] LABS: Basophils # (auto) 0 10 ^3/uL (0-0.2); Basophils % (auto) 0.1 % (0.0-2.0); Eosinophils # (auto) 0 10 ^3/uL (0-0.8); Eosinophils % (auto) 0.2 % (0.0-7.0); Hematocrit 37.9 % (41.0-53.0); Hemoglobin 12.6 g/dL (13.5-17.5); Lymphocytes # (auto) 1.1 10 ^3/uL (0.4-5.4); Lymphocytes % (auto) 10.2 % (10.0-50.0); Mean Corpuscular Hemoglobin 29.2 pg (28.0-32.0); Mean Corpuscular Hgb Conc. 33.2 g/dL (32.0-36.0); Mean Corpuscular Volume 87.8 fL (80.0-100.0); Monocytes # (auto) 0.9 10 ^3/uL (0-1.3); Monocytes % (auto) 8.5 % (0.0-12.0); Neutrophils # (auto) 8.7 10 ^3/uL (1.6-8.6); Nucleated Red Blood Cells % 0.1 %; Red Blood Cells 4.31 10^6/uL (4.5-5.90); Red Cell Distribution Width 16.7 % (11.8-14.3); White Blood Cell 10.8 10^3/uL (4.4-10.8)
[2022-01-16 05:42] LABS: Albumin 2.8 g/dL (3.4-5.0); BUN/Creatinine Ratio 47.1; Bilirubin, Total 0.8 mg/dL (0.2-1.0); Calcium 8.9 mg/dL (8.5-10.1); Potassium 3.8 mmol/L (3.5-5.1); Total Protein 7.5 g/dL (6.4-8.2)
[2022-01-16] MEDS: IPRATROPIUM BROM 0.5 MG/2.5ML INH SOL NEB SCH ×3 (05:52→18:25)
[2022-01-16] MEDS: LEVALBUTEROL HCL 1.25 MG/3 ML NEB NEB SCH ×3 (05:53→18:25)
[2022-01-16] MEDS: LEVOTHYROXINE SODIUM 25 MCG TAB GT SCH (05:55)
[2022-01-16] MEDS: cefTRIAXone 1GM/50ML D5W 50 ML IV SCH (08:58)
[2022-01-16] MEDS: PANTOPRAZOLE 40 MG/10 ML VIAL INJ IV SCH (10:26)
[2022-01-16] MEDS: AZITHROMYCIN 500MG/ 250ML 250 ML IV SCH (10:26)
[2022-01-16] MEDS ORDERED: METOPROLOL TARTRATE 1MG/1ML-5ML VIAL IV ONE (14:00)
[2022-01-16] MEDS ORDERED: METOPROLOL TARTRATE 1MG/1ML-5ML VIAL IV PRN (14:00)
[2022-01-17] VITALS (25 sets, daily range): BP systolic 101–143; BP diastolic 57–99
[2022-01-17] MEDS: LEVALBUTEROL HCL 1.25 MG/3 ML NEB NEB SCH ×5 (00:07→23:53)
[2022-01-17] MEDS: IPRATROPIUM BROM 0.5 MG/2.5ML INH SOL NEB SCH ×5 (00:08→23:53)
[2022-01-17] MEDS: LEVOTHYROXINE SODIUM 25 MCG TAB GT SCH (06:33)
[2022-01-17 08:41] LABS: Albumin 2.7 g/dL (3.4-5.0); Anion Gap 9 (5-15); Blood Urea Nitrogen 7 mg/dL (7-18); Calcium 8.8 mg/dL (8.5-10.1); Carbon Dioxide 31 mmol/L (21-32); Chloride 107 mmol/L (98-107); Glucose 115 mg/dL (74-106); Potassium 3.3 mmol/L (3.5-5.1); Sodium 147 mmol/L (136-145)
[2022-01-17 08:45] LABS: Alanine Aminotransferase 30 U/L (16-61); Alkaline Phosphatase 57 U/L (45-117); Aspartate Aminotransferase 14 U/L (15-37); Bilirubin, Total 0.5 mg/dL (0.2-1.0); Total Protein 6.9 g/dL (6.4-8.2)
[2022-01-17 08:58] LABS: BUN/Creatinine Ratio 46.7; GFR African American 1022 mL/min; GFR Non-African American 844 mL/min
[2022-01-17] MEDS ORDERED: POTASSIUM EFFERVESENT TAB 25 MEQ GT ONE (10:00)
[2022-01-17] MEDS: levoFLOXacin 750MG 150 ML IV SCH (10:00)
[2022-01-17] MEDS: PANTOPRAZOLE 40 MG/10 ML VIAL INJ IV SCH (10:00)
[2022-01-17] MEDS: SODIUM CHLORIDE 0.9% 1,000 ML IV SCH (12:15)
[2022-01-18] VITALS (7 sets, daily range): BP systolic 107–118; BP diastolic 65–73
[2022-01-18] MEDS: SODIUM CHLORIDE 0.9% 1,000 ML IV SCH (01:37)
[2022-01-18] MEDS: IPRATROPIUM BROM 0.5 MG/2.5ML INH SOL NEB SCH ×3 (06:00→18:29)
[2022-01-18] MEDS: LEVALBUTEROL HCL 1.25 MG/3 ML NEB NEB SCH ×3 (06:01→18:29)
[2022-01-18] MEDS: LEVOTHYROXINE SODIUM 25 MCG TAB GT SCH (06:14)
[2022-01-18] MEDS: PANTOPRAZOLE 40 MG/10 ML VIAL INJ IV SCH (10:16)
[2022-01-18] MEDS: levoFLOXacin 750MG 150 ML IV SCH (10:16)
[2022-01-18 11:03] LABS: Anion Gap 8 (5-15); Blood Urea Nitrogen 5 mg/dL (7-18); Calcium 8.7 mg/dL (8.5-10.1); Carbon Dioxide 28 mmol/L (21-32); Chloride 104 mmol/L (98-107); Glucose 113 mg/dL (74-106); Potassium 3.8 mmol/L (3.5-5.1); Sodium 140 mmol/L (136-145)
[2022-01-18 11:47] LABS: BUN/Creatinine Ratio 33.3; GFR African American 1022 mL/min; GFR Non-African American 844 mL/min
[2022-01-18] MEDS: FREE WATER GT SCH ×2 (14:30→18:37)
[2022-01-19] VITALS: BP 114/73
[2022-01-19] MEDS: IPRATROPIUM BROM 0.5 MG/2.5ML INH SOL NEB SCH ×3 (00:17→11:45)
[2022-01-19] MEDS: LEVALBUTEROL HCL 1.25 MG/3 ML NEB NEB SCH ×3 (00:18→11:45)
[2022-01-19] MEDS: FREE WATER GT SCH ×3 (00:20→11:06)
[2022-01-19 05:00] VITALS: BP 105/57
[2022-01-19] MEDS: LEVOTHYROXINE SODIUM 25 MCG TAB GT SCH (06:06)
[2022-01-19 08:44] VITALS: BP 104/63
[2022-01-19] MEDS: levoFLOXacin 750MG 150 ML IV SCH (10:32)
[2022-01-19] MEDS: PANTOPRAZOLE 40 MG/10 ML VIAL INJ IV SCH (10:32)
[2022-01-19 12:38] VITALS: BP 101/65
[2022-01-19 13:26] VITALS: BP 101/65
== END 2022-01-19 15:00 | disposition home or self-care (01) | DRG 130 ==
LOC: EDBD 12:31 → ER 12:36 → TELE 21:50 → DOU IN ICU 01-13 15:05 → TELE-CENTR 01-17 18:55
PROVIDERS: ADMIT Nurse Practitioner Family; ATTEND Internal Medicine
PROC: 5A1955Z Respiratory Ventilation, Greater than 96 Consecutive Hours (ICD-10-PCS; principal; 2022-01-12)
DX: J96.20 Acute and chronic respiratory failure, unspecified whether with hypoxia or hypercapnia (principal); J18.9 Pneumonia, unspecified organism; R65.10 Systemic inflammatory response syndrome (SIRS) of non-infectious origin without acute organ dysfunction; R53.2 Functional quadriplegia; E88.09 Other disorders of plasma-protein metabolism, not elsewhere classified; G71.00 Muscular dystrophy, unspecified; Z93.0 Tracheostomy status; E66.01 Morbid (severe) obesity due to excess calories; E87.6 Hypokalemia; I10 Essential (primary) hypertension; B96.5 Pseudomonas (aeruginosa) (mallei) (pseudomallei) as the cause of diseases classified elsewhere; E03.9 Hypothyroidism, unspecified; M41.9 Scoliosis, unspecified; Z20.822 Contact with and (suspected) exposure to COVID-19; R00.0 Tachycardia, unspecified; D72.829 Elevated white blood cell count, unspecified; Z74.01 Bed confinement status; Z68.28 Body mass index [BMI] 28.0-28.9, adult; Z82.49 Family history of ischemic heart disease and other diseases of the circulatory system; Z83.3 Family history of diabetes mellitus; Z93.1 Gastrostomy status
CPT/HCPCS: 36415; 36600; 71045; 74018; 80048; 80053; 81001; 82805; 83880; 84439; 84443; 85025; 87070; 87077; 87081; 87186; 87205; 87426; 87804; 87880; 93306; 94002; 94003; 94640; 96365; 96375; 99291; A4605; C9113; G0378; J0696; J1100; J1956; J2405; J2543

== ENCOUNTER 2022-01-23 10:18 | Inpatient (IN) | payer MEDICAID ==
[~2022-01-23] VITALS: Ht 167.6 cm; Wt 76.0 kg
[2022-01-23] MEDS ORDERED: IPRATROPIUM BROM 0.5 MG/2.5ML INH SOL NEB ONE (10:45)
[2022-01-23] MEDS ORDERED: ALBUTEROL SULF 2.5 MG/0.5ML(0.5%) NEB SOLN NEB ONE (10:45)
[2022-01-23 12:00] LABS: Basophils # (auto) 0 10 ^3/uL (0-0.2); Basophils % (auto) 0.1 % (0.0-2.0); Eosinophils # (auto) 0 10 ^3/uL (0-0.8); Eosinophils % (auto) 0.3 % (0.0-7.0); Hemoglobin 12.4 g/dL (13.5-17.5); Lymphocytes # (auto) 1.4 10 ^3/uL (0.4-5.4); Lymphocytes % (auto) 9.3 % (10.0-50.0); Mean Corpuscular Hemoglobin 29.1 pg (28.0-32.0); Mean Corpuscular Hgb Conc. 33.4 g/dL (32.0-36.0); Mean Corpuscular Volume 87.2 fL (80.0-100.0); Monocytes # (auto) 1.3 10 ^3/uL (0-1.3); Monocytes % (auto) 8.7 % (0.0-12.0); Neutrophils # (auto) 11.8 10 ^3/uL (1.6-8.6); Neutrophils % (auto) 81.6 % (37.0-80.0); Red Blood Cells 4.24 10^6/uL (4.5-5.90); Red Cell Distribution Width 16.3 % (11.8-14.3); White Blood Cell 14.5 10^3/uL (4.4-10.8)
[2022-01-23 12:32] LABS: Albumin 3.2 g/dL (3.4-5.0); BUN/Creatinine Ratio 55.6; Potassium 3.8 mmol/L (3.5-5.1)
[2022-01-23 12:37] LABS: Bilirubin, Total 0.5 mg/dL (0.2-1.0); Total Protein 8.3 g/dL (6.4-8.2)
[2022-01-23 13:40] VITALS: BP 100/62
[2022-01-23 13:57] LABS: Urine Bacteria NONE SEEN /hpf (None Seen); Urine Blood Negative /uL (Negative); Urine Specific Gravity 1.047 (1.001-1.035); Urine WBC 1 /hpf (0 - 3)
[2022-01-23] MEDS ORDERED: ENOXAPARIN SOD 80 MG/0.8ML SYRINGE SC ONE (15:00)
[2022-01-23] MEDS ORDERED: levoFLOXacin 500MG 100 ML IV ONE (15:00)
[2022-01-23 15:30] VITALS: BP 111/72
[2022-01-23] MEDS ORDERED: SODIUM CHLORIDE 0.9% 1,000 ML IV ONE ×2 (16:30→18:30)
[2022-01-23 16:34] VITALS: BP 111/70
[2022-01-23 17:58] VITALS: BP 113/65
[2022-01-23] MEDS: SODIUM CHLORIDE 0.9% 1,000 ML IV SCH (18:45)
[2022-01-23 19:59] VITALS: BP 101/62
[2022-01-23] MEDS: FAMOTIDINE 20 MG TAB GT SCH (22:09)
[2022-01-23 22:10] VITALS: BP 99/61
[2022-01-24] VITALS (18 sets, daily range): BP systolic 98–164; BP diastolic 53–98
[2022-01-24] MEDS: Vital AF 1.2 Cal 1 liter bottle GT SCH (00:58)
[2022-01-24] MEDS: SODIUM CHLORIDE 0.9% 1,000 ML IV SCH (05:05)
[2022-01-24 06:14] LABS: Basophils # (auto) 0 10 ^3/uL (0-0.2); Basophils % (auto) 0.4 % (0.0-2.0); Eosinophils # (auto) 0.1 10 ^3/uL (0-0.8); Eosinophils % (auto) 1.3 % (0.0-7.0); Hemoglobin 10.2 g/dL (13.5-17.5); Lymphocytes # (auto) 1.3 10 ^3/uL (0.4-5.4); Lymphocytes % (auto) 16.8 % (10.0-50.0); Mean Corpuscular Hemoglobin 29.5 pg (28.0-32.0); Mean Corpuscular Hgb Conc. 32.8 g/dL (32.0-36.0); Mean Corpuscular Volume 89.8 fL (80.0-100.0); Monocytes # (auto) 0.7 10 ^3/uL (0-1.3); Monocytes % (auto) 8.9 % (0.0-12.0); Neutrophils # (auto) 5.7 10 ^3/uL (1.6-8.6); Neutrophils % (auto) 72.6 % (37.0-80.0); Red Blood Cells 3.45 10^6/uL (4.5-5.90); Red Cell Distribution Width 16.8 % (11.8-14.3); White Blood Cell 7.9 10^3/uL (4.4-10.8)
[2022-01-24 06:27] LABS: Chloride 110 mmol/L (98-107); Potassium 3.5 mmol/L (3.5-5.1); Sodium 142 mmol/L (136-145)
[2022-01-24 06:33] LABS: Anion Gap 5 (5-15); Blood Urea Nitrogen 12 mg/dL (7-18); Calcium 8.6 mg/dL (8.5-10.1); Carbon Dioxide 27 mmol/L (21-32); Glucose 103 mg/dL (74-106)
[2022-01-24] MEDS: LEVOTHYROXINE SODIUM 25 MCG TAB GT SCH (06:42)
[2022-01-24 07:08] LABS: GFR African American 1022 mL/min; GFR Non-African American 844 mL/min
[2022-01-24] MEDS: levoFLOXacin 750MG 150 ML IV SCH (10:02)
[2022-01-24] MEDS: FLORASTOR (S. BOULARDII) 250 MG CAP PO SCH (10:02)
[2022-01-24] MEDS: ENOXAPARIN SOD 40 MG/0.4 ML SYRINGE SC SCH (10:02)
[2022-01-24] MEDS: METOPROLOL TARTRATE 25 MG TAB GT SCH (10:03)
[2022-01-24] MEDS: POLYETHYLENE GLYCOL 17 GM PWDR GT SCH (10:03)
[2022-01-24] MEDS: FAMOTIDINE 20 MG TAB GT SCH ×2 (10:03→22:00)
[2022-01-24] MEDS ORDERED: ALBUTEROL SULF 2.5 MG/0.5ML(0.5%) NEB SOLN NEB SCH (18:00)
[2022-01-24] MEDS: ACETYLCYSTEINE 10 %(100MG/ML) SOL 4ML NEB SCH ×2 (20:23→23:47)
[2022-01-24] MEDS ORDERED: LEVALBUTEROL HCL 1.25 MG/3 ML NEB ONE (23:19)
[2022-01-24] MEDS: LEVALBUTEROL HCL 1.25 MG/3 ML NEB NEB SCH (23:47)
[2022-01-25] VITALS (46 sets, daily range): BP systolic 92–155; BP diastolic 55–87
[2022-01-25] MEDS: ALPRAZolam 0.5 MG TAB PO PRN ×2 (00:19→14:58)
[2022-01-25] MEDS ORDERED: MORPHINE SULFATE INJ 2 MG/ml SYRG IV PRN (01:00)
[2022-01-25] MEDS ORDERED: MORPHINE SULFATE INJ 2 MG/ml SYRG ONE (01:10)
[2022-01-25 05:07] LABS: Basophils # (auto) 0.1 10 ^3/uL (0-0.2); Basophils % (auto) 0.8 % (0.0-2.0); Eosinophils # (auto) 0.1 10 ^3/uL (0-0.8); Eosinophils % (auto) 0.6 % (0.0-7.0); Hematocrit 34.7 % (41.0-53.0); Hemoglobin 11.4 g/dL (13.5-17.5); Lymphocytes # (auto) 0.7 10 ^3/uL (0.4-5.4); Lymphocytes % (auto) 3.7 % (10.0-50.0); Mean Corpuscular Hemoglobin 28.9 pg (28.0-32.0); Mean Corpuscular Hgb Conc. 32.8 g/dL (32.0-36.0); Mean Corpuscular Volume 88.2 fL (80.0-100.0); Monocytes # (auto) 0.7 10 ^3/uL (0-1.3); Monocytes % (auto) 3.7 % (0.0-12.0); Neutrophils # (auto) 16.1 10 ^3/uL (1.6-8.6); Neutrophils % (auto) 91.2 % (37.0-80.0); Nucleated Red Blood Cells % 0.1 %; Red Blood Cells 3.93 10^6/uL (4.5-5.90); Red Cell Distribution Width 17.1 % (11.8-14.3); White Blood Cell 17.6 10^3/uL (4.4-10.8)
[2022-01-25 05:32] LABS: Anion Gap 7 (5-15); Blood Urea Nitrogen 6 mg/dL (7-18); Calcium 8.8 mg/dL (8.5-10.1); Carbon Dioxide 28 mmol/L (21-32); Chloride 104 mmol/L (98-107); Glucose 134 mg/dL (74-106); Potassium 4.2 mmol/L (3.5-5.1); Sodium 139 mmol/L (136-145)
[2022-01-25 05:36] LABS: GFR African American 1022 mL/min; GFR Non-African American 844 mL/min
[2022-01-25] MEDS: ACETYLCYSTEINE 10 %(100MG/ML) SOL 4ML NEB SCH ×4 (06:14→23:26)
[2022-01-25] MEDS: LEVALBUTEROL HCL 1.25 MG/3 ML NEB NEB SCH ×2 (06:14→11:26)
[2022-01-25] MEDS: LEVOTHYROXINE SODIUM 25 MCG TAB GT SCH (06:53)
[2022-01-25] MEDS: POLYETHYLENE GLYCOL 17 GM PWDR GT SCH (08:40)
[2022-01-25] MEDS: METOPROLOL TARTRATE 25 MG TAB GT SCH (08:41)
[2022-01-25] MEDS: FAMOTIDINE 20 MG TAB GT SCH ×2 (09:06→22:00)
[2022-01-25] MEDS: ENOXAPARIN SOD 40 MG/0.4 ML SYRINGE SC SCH (09:06)
[2022-01-25] MEDS: levoFLOXacin 750MG 150 ML IV SCH (09:06)
[2022-01-25] MEDS: FLORASTOR (S. BOULARDII) 250 MG CAP PO SCH (09:06)
[2022-01-25] MEDS ORDERED: ACETAMINOPHEN 650 mg PER 20.3 mL UD ONE (11:18)
[2022-01-25] MEDS: Vital AF 1.2 Cal 1 liter bottle GT SCH (14:53)
[2022-01-25] MEDS: MEROPENEM 1GM IVPB 100 ML IV SCH ×2 (14:53→21:27)
[2022-01-25] MEDS: traMADol HCL 50 MG TAB PO PRN (17:21)
[2022-01-25] MEDS: FREE WATER GT SCH (17:22)
[2022-01-25] MEDS ORDERED: LEVALBUTEROL HCL 1.25 MG/3 ML NEB ONE ×2 (18:02→22:52)
[2022-01-25] MEDS: IPRATROPIUM BROM 0.5 MG/2.5ML INH SOL NEB SCH ×2 (18:10→23:26)
[2022-01-25] MEDS: ONDANSETRON HCL 4 MG/2 ML VIAL IV PRN (21:26)
[2022-01-26] VITALS (23 sets, daily range): BP systolic 91–127; BP diastolic 51–76
[2022-01-26 04:44] LABS: Basophils # (auto) 0 10 ^3/uL (0-0.2); Basophils % (auto) 0.2 % (0.0-2.0); Eosinophils # (auto) 0 10 ^3/uL (0-0.8); Eosinophils % (auto) 0.5 % (0.0-7.0); Hematocrit 33.2 % (41.0-53.0); Lymphocytes # (auto) 1.2 10 ^3/uL (0.4-5.4); Lymphocytes % (auto) 12.7 % (10.0-50.0); Mean Corpuscular Volume 87.6 fL (80.0-100.0); Monocytes # (auto) 1.2 10 ^3/uL (0-1.3); Monocytes % (auto) 12.9 % (0.0-12.0); Neutrophils # (auto) 6.7 10 ^3/uL (1.6-8.6); Neutrophils % (auto) 73.7 % (37.0-80.0); Red Blood Cells 3.79 10^6/uL (4.5-5.90); Red Cell Distribution Width 16.3 % (11.8-14.3); White Blood Cell 9.1 10^3/uL (4.4-10.8)
[2022-01-26] MEDS: MEROPENEM 1GM IVPB 100 ML IV SCH ×3 (04:54→21:34)
[2022-01-26] MEDS: traMADol HCL 50 MG TAB PO PRN (04:55)
[2022-01-26 05:00] LABS: Anion Gap 5 (5-15); Blood Urea Nitrogen 7 mg/dL (7-18); Calcium 8.5 mg/dL (8.5-10.1); Carbon Dioxide 34 mmol/L (21-32); Chloride 100 mmol/L (98-107); Glucose 121 mg/dL (74-106); Potassium 3.5 mmol/L (3.5-5.1); Sodium 139 mmol/L (136-145)
[2022-01-26 05:08] LABS: BUN/Creatinine Ratio 46.7; GFR African American 1022 mL/min; GFR Non-African American 844 mL/min
[2022-01-26] MEDS: ONDANSETRON HCL 4 MG/2 ML VIAL IV PRN ×3 (05:38→15:26)
[2022-01-26] MEDS: ACETYLCYSTEINE 10 %(100MG/ML) SOL 4ML NEB SCH ×3 (05:47→18:40)
[2022-01-26] MEDS: IPRATROPIUM BROM 0.5 MG/2.5ML INH SOL NEB SCH ×3 (05:47→18:40)
[2022-01-26] MEDS: FREE WATER GT SCH ×4 (06:00→18:14)
[2022-01-26] MEDS: ACETAMINOPHEN 650 mg PER 20.3 mL UD GT PRN ×2 (06:00→21:35)
[2022-01-26] MEDS: LEVOTHYROXINE SODIUM 25 MCG TAB GT SCH (06:00)
[2022-01-26] MEDS: ENOXAPARIN SOD 40 MG/0.4 ML SYRINGE SC SCH (10:13)
[2022-01-26] MEDS: POLYETHYLENE GLYCOL 17 GM PWDR GT SCH (10:17)
[2022-01-26] MEDS: FLORASTOR (S. BOULARDII) 250 MG CAP PO SCH (10:17)
[2022-01-26] MEDS: FAMOTIDINE 20 MG TAB GT SCH ×2 (10:17→21:35)
[2022-01-26] MEDS: METOPROLOL TARTRATE 25 MG TAB GT SCH (10:18)
[2022-01-26] MEDS: KETOROLAC TROMETH 30 MG/ML 1ML VIAL IV PRN (10:51)
[2022-01-26 13:58] LABS: Magnesium 1.9 mg/dL (1.6-2.6); Phosphorus 2.6 mg/dL (2.5-4.90); Potassium 3.6 mmol/L (3.5-5.1)
[2022-01-27] VITALS (22 sets, daily range): BP systolic 91–130; BP diastolic 50–79
[2022-01-27] MEDS: FREE WATER GT SCH ×4 (00:27→18:33)
[2022-01-27] MEDS: KETOROLAC TROMETH 30 MG/ML 1ML VIAL IV PRN (00:31)
[2022-01-27] MEDS: ONDANSETRON HCL 4 MG/2 ML VIAL IV PRN ×2 (00:31→08:17)
[2022-01-27] MEDS: ACETYLCYSTEINE 10 %(100MG/ML) SOL 4ML NEB SCH ×4 (00:44→18:26)
[2022-01-27] MEDS: MEROPENEM 1GM IVPB 100 ML IV SCH ×3 (04:09→20:02)
[2022-01-27 04:58] LABS: Basophils # (auto) 0 10 ^3/uL (0-0.2); Basophils % (auto) 0.2 % (0.0-2.0); Eosinophils # (auto) 0 10 ^3/uL (0-0.8); Eosinophils % (auto) 0.5 % (0.0-7.0); Hematocrit 34.8 % (41.0-53.0); Hemoglobin 11.2 g/dL (13.5-17.5); Lymphocytes # (auto) 1.5 10 ^3/uL (0.4-5.4); Lymphocytes % (auto) 16.5 % (10.0-50.0); Mean Corpuscular Hemoglobin 29.1 pg (28.0-32.0); Mean Corpuscular Hgb Conc. 32.3 g/dL (32.0-36.0); Mean Corpuscular Volume 90.2 fL (80.0-100.0); Monocytes # (auto) 1.1 10 ^3/uL (0-1.3); Monocytes % (auto) 12.1 % (0.0-12.0); Neutrophils # (auto) 6.3 10 ^3/uL (1.6-8.6); Neutrophils % (auto) 70.7 % (37.0-80.0); Nucleated Red Blood Cells % 0.1 %; Red Blood Cells 3.86 10^6/uL (4.5-5.90); Red Cell Distribution Width 16.3 % (11.8-14.3); White Blood Cell 8.9 10^3/uL (4.4-10.8)
[2022-01-27 05:18] LABS: Anion Gap 5 (5-15); Blood Urea Nitrogen 8 mg/dL (7-18); Calcium 8.6 mg/dL (8.5-10.1); Carbon Dioxide 35 mmol/L (21-32); Chloride 98 mmol/L (98-107); Glucose 117 mg/dL (74-106); Potassium 3.8 mmol/L (3.5-5.1); Sodium 138 mmol/L (136-145)
[2022-01-27 05:31] LABS: BUN/Creatinine Ratio 53.3; GFR African American 1022 mL/min; GFR Non-African American 844 mL/min
[2022-01-27] MEDS: IPRATROPIUM BROM 0.5 MG/2.5ML INH SOL NEB SCH ×3 (05:48→18:26)
[2022-01-27] MEDS: LEVOTHYROXINE SODIUM 25 MCG TAB GT SCH (07:08)
[2022-01-27] MEDS: ALPRAZolam 0.5 MG TAB PO PRN (08:17)
[2022-01-27] MEDS: ACETAMINOPHEN 650 mg PER 20.3 mL UD GT PRN ×2 (08:18→20:02)
[2022-01-27] MEDS: POLYETHYLENE GLYCOL 17 GM PWDR GT SCH (10:00)
[2022-01-27] MEDS: METOPROLOL TARTRATE 25 MG TAB GT SCH (10:00)
[2022-01-27] MEDS: FAMOTIDINE 20 MG TAB GT SCH ×2 (10:00→23:00)
[2022-01-27] MEDS: FLORASTOR (S. BOULARDII) 250 MG CAP PO SCH (10:00)
[2022-01-27] MEDS: ENOXAPARIN SOD 40 MG/0.4 ML SYRINGE SC SCH (10:02)
[2022-01-28] VITALS (19 sets, daily range): BP systolic 88–137; BP diastolic 50–86
[2022-01-28] MEDS: ACETYLCYSTEINE 10 %(100MG/ML) SOL 4ML NEB SCH ×4 (00:09→19:08)
[2022-01-28] MEDS: IPRATROPIUM BROM 0.5 MG/2.5ML INH SOL NEB SCH ×4 (00:09→19:08)
[2022-01-28] MEDS: FREE WATER GT SCH ×4 (00:16→17:21)
[2022-01-28] MEDS: SODIUM CHLORIDE 0.9% 1,000 ML IV SCH ×2 (02:00→09:45)
[2022-01-28] MEDS: MEROPENEM 1GM IVPB 100 ML IV SCH ×3 (05:00→22:00)
[2022-01-28 05:49] LABS: Basophils # (auto) 0 10 ^3/uL (0-0.2); Basophils % (auto) 0.6 % (0.0-2.0); Eosinophils # (auto) 0.1 10 ^3/uL (0-0.8); Eosinophils % (auto) 1.6 % (0.0-7.0); Hematocrit 34.3 % (41.0-53.0); Hemoglobin 11.2 g/dL (13.5-17.5); Lymphocytes # (auto) 1.6 10 ^3/uL (0.4-5.4); Lymphocytes % (auto) 22.9 % (10.0-50.0); Mean Corpuscular Hemoglobin 28.8 pg (28.0-32.0); Mean Corpuscular Hgb Conc. 32.5 g/dL (32.0-36.0); Mean Corpuscular Volume 88.6 fL (80.0-100.0); Monocytes # (auto) 0.7 10 ^3/uL (0-1.3); Monocytes % (auto) 9.7 % (0.0-12.0); Neutrophils # (auto) 4.6 10 ^3/uL (1.6-8.6); Neutrophils % (auto) 65.2 % (37.0-80.0); Nucleated Red Blood Cells % 0.1 %; Red Blood Cells 3.87 10^6/uL (4.5-5.90); Red Cell Distribution Width 16.1 % (11.8-14.3); White Blood Cell 7.1 10^3/uL (4.4-10.8)
[2022-01-28 06:03] LABS: Anion Gap 9 (5-15); Blood Urea Nitrogen 7 mg/dL (7-18); Calcium 8.9 mg/dL (8.5-10.1); Carbon Dioxide 34 mmol/L (21-32); Chloride 99 mmol/L (98-107); Glucose 100 mg/dL (74-106); Potassium 3.9 mmol/L (3.5-5.1); Sodium 142 mmol/L (136-145)
[2022-01-28 06:34] LABS: BUN/Creatinine Ratio 46.7; GFR African American 1022 mL/min; GFR Non-African American 844 mL/min
[2022-01-28] MEDS: LEVOTHYROXINE SODIUM 25 MCG TAB GT SCH (06:43)
[2022-01-28] MEDS: FAMOTIDINE 20 MG TAB GT SCH ×2 (09:50→22:00)
[2022-01-28] MEDS: ENOXAPARIN SOD 40 MG/0.4 ML SYRINGE SC SCH (09:50)
[2022-01-28] MEDS: FLORASTOR (S. BOULARDII) 250 MG CAP PO SCH (09:50)
[2022-01-28] MEDS: POLYETHYLENE GLYCOL 17 GM PWDR GT SCH (09:50)
[2022-01-28] MEDS: METOPROLOL TARTRATE 25 MG TAB GT SCH (09:50)
[2022-01-28] MEDS ORDERED: ROCURONIUM 10MG/ML 10ML VIAL IV ONE (11:00)
[2022-01-28] MEDS ORDERED: ETOMIDATE (2MG/ML) 20ML VIAL IV ONE (11:00)
[2022-01-28] MEDS ORDERED: LABETALOL HCL 5 MG/ML 4ML SYRINGE IV PRN (11:00)
[2022-01-28] MEDS ORDERED: FUROSEMIDE 40 MG/4 ML VIAL IV SCH (18:00)
[2022-01-28] MEDS: ALPRAZolam 0.5 MG TAB PO PRN (23:19)
[2022-01-29] VITALS (22 sets, daily range): BP systolic 94–131; BP diastolic 57–88
[2022-01-29] MEDS: ACETYLCYSTEINE 10 %(100MG/ML) SOL 4ML NEB SCH ×3 (00:13→12:20)
[2022-01-29] MEDS: IPRATROPIUM BROM 0.5 MG/2.5ML INH SOL NEB SCH ×3 (00:13→12:20)
[2022-01-29] MEDS: MEROPENEM 1GM IVPB 100 ML IV SCH ×2 (05:30→12:24)
[2022-01-29] MEDS: SODIUM CHLORIDE 0.9% 1,000 ML IV SCH ×2 (05:45→15:45)
[2022-01-29] MEDS: FREE WATER GT SCH ×3 (05:47→12:24)
[2022-01-29] MEDS: LEVOTHYROXINE SODIUM 25 MCG TAB GT SCH (07:00)
[2022-01-29] MEDS: ENOXAPARIN SOD 40 MG/0.4 ML SYRINGE SC SCH (09:14)
[2022-01-29] MEDS: FLORASTOR (S. BOULARDII) 250 MG CAP PO SCH (09:15)
[2022-01-29] MEDS: FAMOTIDINE 20 MG TAB GT SCH (09:15)
[2022-01-29] MEDS: METOPROLOL TARTRATE 25 MG TAB GT SCH (09:16)
[2022-01-29] MEDS: POLYETHYLENE GLYCOL 17 GM PWDR GT SCH (09:26)
[2022-01-29] MEDS: ACETAMINOPHEN 650 mg PER 20.3 mL UD GT PRN (14:00)
[2022-01-29] MEDS: ALPRAZolam 0.5 MG TAB PO PRN (14:19)
[2022-01-29] MEDS ORDERED: IPRATROPIUM BROM 0.5 MG/2.5ML INH SOL NEB ONE (15:15)
== END 2022-01-29 17:30 | disposition home health service (06) | DRG 720 ==
LOC: EDBD 10:18 → EDUNIT# 10:18 → ER 10:18 → TELE 18:40 → DOU IN ICU 01-24 21:55
PROVIDERS: ADMIT Nurse Practitioner Family; ATTEND Nurse Practitioner Acute Care
PROC: 5A1935Z Respiratory Ventilation, Less than 24 Consecutive Hours (ICD-10-PCS; principal; 2022-01-23)
PROC: 0BH17EZ Insertion of Endotracheal Airway into Trachea, Via Natural or Artificial Opening (ICD-10-PCS; 2022-01-23)
PROC: 5A1945Z Respiratory Ventilation, 24-96 Consecutive Hours (ICD-10-PCS; 2022-01-25)
DX: A41.9 Sepsis, unspecified organism (principal); J96.21 Acute and chronic respiratory failure with hypoxia; J95.851 Ventilator associated pneumonia; I21.A1 Myocardial infarction type 2; G82.50 Quadriplegia, unspecified; J15.1 Pneumonia due to Pseudomonas; J15.6 Pneumonia due to other Gram-negative bacteria; R65.20 Severe sepsis without septic shock; G71.00 Muscular dystrophy, unspecified; E03.9 Hypothyroidism, unspecified; M41.9 Scoliosis, unspecified; Z93.0 Tracheostomy status; Z99.11 Dependence on respirator [ventilator] status; Z93.1 Gastrostomy status; Z82.49 Family history of ischemic heart disease and other diseases of the circulatory system
CPT/HCPCS: 36415; 36600; 71045; 71275; 80048; 80053; 81001; 82805; 82962; 83735; 83880; 84100; 84132; 84484; 85025; 87040; 87070; 87077; 87081; 87186; 87205; 87426; 93005; 93970; 94002; 94003; 94640; 94668; 96361; 96365; 96372; 97163; G0378; J1885; J1956; J2185; J2405

== ENCOUNTER 2023-01-24 01:28 | Inpatient (IN) | payer MEDICAID ==
[~2023-01-24] VITALS: Ht 165.1 cm; Wt 70.4 kg
[2023-01-24] VITALS (43 sets, daily range): BP systolic 109–149; BP diastolic 52–84; PULSE 126–152; RESP 13–41; TEMP 98.3–99; O2SAT 83–100
[2023-01-24 02:57] LABS: Basophils # (auto) 0 10 ^3/uL (0-0.2); Basophils % (auto) 0.1 % (0.0-2.0); Eosinophils # (auto) 0 10 ^3/uL (0-0.8); Hemoglobin 13.6 g/dL (13.5-17.5); White Blood Cell 24.2 10^3/uL (4.4-10.8)
[2023-01-24 02:58] LABS: Hematocrit 43.8 % (41.0-53.0); Lymphocytes # (auto) 0.6 10 ^3/uL (0.4-5.4); Lymphocytes % (auto) 2.5 % (10.0-50.0); Mean Corpuscular Hemoglobin 24.4 pg (28.0-32.0); Mean Corpuscular Volume 78.6 fL (80.0-100.0); Monocytes # (auto) 1.1 10 ^3/uL (0-1.3); Monocytes % (auto) 4.4 % (0.0-12.0); Neutrophils # (auto) 22.5 10 ^3/uL (1.6-8.6); Red Blood Cells 5.58 10^6/uL (4.5-5.90); Red Cell Distribution Width 19.6 % (11.8-14.3)
[2023-01-24] MEDS ORDERED: levoFLOXacin 500MG 100 ML IV ONE (03:15)
[2023-01-24 03:20] LABS: Alanine Aminotransferase 27 U/L (7-40); Albumin 5.2 g/dL (3.2-4.8); Alkaline Phosphatase 64 U/L (46-116); Anion Gap 9 (5-15); Aspartate Aminotransferase 26 U/L (13-40); BUN/Creatinine Ratio 26.9 (10.0-20.0); Bilirubin, Total 1.2 mg/dL (0.2-1.0); Blood Urea Nitrogen 7 mg/dL (9-23); Calcium 9.9 mg/dL (8.7-10.4); Carbon Dioxide 31 mmol/L (20-30); Chloride 100 mmol/L (98-107); Glucose 145 mg/dL (74-106); Potassium 4.3 mmol/L (3.5-5.1); Sodium 140 mmol/L (136-145); Total Protein 10.2 g/dL (5.7-8.2)
[2023-01-24] MEDS ORDERED: SODIUM CHLORIDE 0.9% 1,000 ML IV ONE (03:30)
[2023-01-24] MEDS ORDERED: ASPirin 325 MG TAB GT ONE (04:15)
[2023-01-24] MEDS ORDERED: LORazepam 2MG/ML-1ML VIAL IV ONE (04:30)
[2023-01-24] MEDS ORDERED: NITROGLYCERIN 0.4 MG SL TAB SL PRN (09:15)
[2023-01-24] MEDS ORDERED: cefTRIAXone 1GM/50ML D5W 50 ML IV ONE (09:15)
[2023-01-24] MEDS ORDERED: PANTOPRAZOLE 40 MG/10 ML VIAL INJ IV ONE (09:15)
[2023-01-24] MEDS ORDERED: MORPHINE SULFATE INJ 2 MG/ml SYRG IV PRN (09:15)
[2023-01-24] MEDS ORDERED: AZITHROMYCIN 500MG/ 250ML 250 ML IV ONE (09:15)
[2023-01-24] MEDS ORDERED: FUROSEMIDE 20 MG/2 ML VIAL IV ONE (09:30)
[2023-01-24] MEDS ORDERED: methylPREDNISolone SOD SUCC 125 MG/2 ML VL IV ONE (09:30)
[2023-01-24] MEDS: PANTOPRAZOLE 40 MG/10 ML VIAL INJ IV SCH (09:44)
[2023-01-24] MEDS: METOPROLOL TARTRATE 25 MG TAB GT SCH (09:48)
[2023-01-24] MEDS: POLYETHYLENE GLYCOL 17 GM PWDR GT SCH (09:49)
[2023-01-24 09:53] LABS: Base Excess 2.8 mmol/L (-2.0-2.0)
[2023-01-24] MEDS ORDERED: AZITHROMYCIN 500MG/ 250ML 250 ML IV SCH (10:00)
[2023-01-24] MEDS: FLORASTOR (S. BOULARDII) 250 MG CAP PO SCH (10:05)
[2023-01-24] MEDS: ENOXAPARIN SOD 40 MG/0.4 ML SYRINGE SC SCH (10:06)
[2023-01-24] MEDS ORDERED: VANCOMYCIN PER PHARMACY 0 MG IV SCH (11:00)
[2023-01-24] MEDS ORDERED: LORazepam 2MG/ML-1ML VIAL ONE (11:23)
[2023-01-24] MEDS ORDERED: VANCOMYCIN 1GM/250ML 250 ML IV ONE (11:30)
[2023-01-24 11:45] LABS: Urine Bacteria NONE SEEN /hpf (None Seen); Urine Blood Negative /uL (Negative); Urine Clarity Clear (Clear); Urine Color Colorless (Yellow); Urine Hyaline Cast FEW /lpf (0 - 2); Urine Mucus FEW (None Seen); Urine Protein, UAD Negative (Negative); Urine Specific Gravity 1.008 (1.001-1.035); Urine Urobilinogen Normal (Negative); Urine WBC 4 /hpf (0 - 3)
[2023-01-24] MEDS: LORazepam 2MG/ML-1ML VIAL IV PRN (11:53)
[2023-01-24] MEDS: IPRATROPIUM BROM 0.5 MG/2.5ML INH SOL NEB SCH ×4 (12:49→22:59)
[2023-01-24] MEDS: ALBUTEROL MEDNEB 2.5 mg/3ml NEB NEB SCH ×4 (12:49→22:59)
[2023-01-24] MEDS: CEFEPIME 2GM/50ML NS 50 ML IV SCH (14:00)
[2023-01-24] MEDS: ACETYLCYSTEINE 20%(200MG/ML) SOL 4ML NEB SCH ×3 (14:36→22:58)
[2023-01-24 15:11] LABS: Base Excess 2.9 mmol/L (-2.0-2.0)
[2023-01-24] MEDS ORDERED: SOD CHL 0.45% 1,000 ML IV ONE (17:30)
[2023-01-24 17:32] LABS: Base Excess -0.1 mmol/L (-2.0-2.0)
[2023-01-24] MEDS: fentaNYL Drip 2500mCg/250mlNS 250 ML IV SCH (20:10)
[2023-01-24] MEDS: D5W/SOD CHL 0.45%/KCL 20MEQ 1,000 ML IV SCH (21:00)
[2023-01-24] MEDS ORDERED: SODIUM CHLORIDE 0.9% 500 ML IV ONE (21:00)
[2023-01-24] MEDS ORDERED: ALBUMIN 25% 50 ML IV ONE ×2 (21:00→21:09)
[2023-01-24] MEDS ORDERED: SODIUM CHL 0.9% 500 ML IV SCH (21:30)
[2023-01-24 21:35] LABS: Base Excess -2.9 mmol/L (-2.0-2.0)
[2023-01-24] MEDS: methylPREDNISolone SOD SUCC 40 MG/ML VL IV SCH (21:53)
[2023-01-24] MEDS: VANCOMYCIN 1GM/250ML 250 ML IV SCH (22:00)
[2023-01-24 23:08] LABS: Base Excess -3.3 mmol/L (-2.0-2.0)
[2023-01-25] VITALS (84 sets, daily range): BP systolic 95–126; BP diastolic 52–76; PULSE 121–144; RESP 25–54; TEMP 98–99.2; O2SAT 89–100
[2023-01-25 01:51] LABS: Base Excess 1.7 mmol/L (-2.0-2.0)
[2023-01-25] MEDS: IPRATROPIUM BROM 0.5 MG/2.5ML INH SOL NEB SCH ×6 (02:14→22:18)
[2023-01-25] MEDS: ACETYLCYSTEINE 20%(200MG/ML) SOL 4ML NEB SCH ×6 (02:14→22:19)
[2023-01-25] MEDS: LEVALBUTEROL HCL 1.25 MG/3 ML NEB NEB SCH ×6 (02:14→22:18)
[2023-01-25 04:40] LABS: Basophils # (auto) 0 10 ^3/uL (0-0.2); Eosinophils # (auto) 0 10 ^3/uL (0-0.8); Neutrophils % (auto) 92.7 % (37.0-80.0)
[2023-01-25 04:41] LABS: Hematocrit 35.3 % (41.0-53.0); Hemoglobin 10.5 g/dL (13.5-17.5); Lymphocytes # (auto) 0.5 10 ^3/uL (0.4-5.4); Lymphocytes % (auto) 2.8 % (10.0-50.0); Mean Corpuscular Hemoglobin 23.6 pg (28.0-32.0); Mean Corpuscular Hgb Conc. 29.6 g/dL (32.0-36.0); Mean Corpuscular Volume 79.8 fL (80.0-100.0); Monocytes # (auto) 0.8 10 ^3/uL (0-1.3); Monocytes % (auto) 4.5 % (0.0-12.0); Neutrophils # (auto) 16.7 10 ^3/uL (1.6-8.6); Red Blood Cells 4.42 10^6/uL (4.5-5.90); Red Cell Distribution Width 18.5 % (11.8-14.3)
[2023-01-25 05:03] LABS: Alanine Aminotransferase 32 U/L (7-40); Alkaline Phosphatase 53 U/L (46-116); BUN/Creatinine Ratio 84.6 (10.0-20.0); Blood Urea Nitrogen 22 mg/dL (9-23); Calcium 8.8 mg/dL (8.7-10.4); Glucose 154 mg/dL (74-106); Magnesium 1.7 mg/dL (1.6-2.6)
[2023-01-25 05:05] LABS: Albumin 4.1 g/dL (3.2-4.8); Aspartate Aminotransferase 35 U/L (13-40); Bilirubin, Total 0.6 mg/dL (0.2-1.0); Total Protein 7.9 g/dL (5.7-8.2)
[2023-01-25 05:17] LABS: Chloride 101 mmol/L (98-107); Potassium 4.1 mmol/L (3.5-5.1); Sodium 137 mmol/L (136-145)
[2023-01-25 05:20] LABS: Anion Gap 8 (5-15); Carbon Dioxide 28 mmol/L (20-30)
[2023-01-25] MEDS: CEFEPIME 2GM/50ML NS 50 ML IV SCH ×4 (06:36→21:56)
[2023-01-25 06:50] LABS: Triglycerides 69 mg/dL (< 150)
[2023-01-25 06:51] LABS: LDL Cholesterol 42 mg/dL (< 100)
[2023-01-25 06:52] LABS: HDL Cholesterol 29 mg/dL (40-59)
[2023-01-25 06:53] LABS: Cholesterol 97 mg/dL (< 200)
[2023-01-25] MEDS: LEVOTHYROXINE SODIUM 25 MCG TAB GT SCH (07:00)
[2023-01-25 07:01] LABS: CRP High Sensitivity 9.34 mg/dL (<1.0)
[2023-01-25] MEDS: VANCOMYCIN 1GM/250ML 250 ML IV SCH ×2 (08:18→17:32)
[2023-01-25] MEDS: D5W/SOD CHL 0.45%/KCL 20MEQ 1,000 ML IV SCH ×3 (08:19→21:58)
[2023-01-25] MEDS ORDERED: cefTRIAXone 1GM/50ML D5W 50 ML IV SCH (09:00)
[2023-01-25 09:09] LABS: Base Excess 1.2 mmol/L (-2.0-2.0)
[2023-01-25] MEDS: PANTOPRAZOLE 40 MG/10 ML VIAL INJ IV SCH (09:45)
[2023-01-25] MEDS: methylPREDNISolone SOD SUCC 40 MG/ML VL IV SCH ×2 (09:45→21:58)
[2023-01-25] MEDS: ENOXAPARIN SOD 40 MG/0.4 ML SYRINGE SC SCH (09:46)
[2023-01-25] MEDS: FLORASTOR (S. BOULARDII) 250 MG CAP PO SCH (09:46)
[2023-01-25] MEDS: POLYETHYLENE GLYCOL 17 GM PWDR GT SCH (09:46)
[2023-01-25] MEDS: METOPROLOL TARTRATE 25 MG TAB GT SCH (09:47)
[2023-01-25] MEDS: fentaNYL Drip 2500mCg/250mlNS 250 ML IV SCH (19:45)
[2023-01-26] VITALS (108 sets, daily range): BP systolic 87–139; BP diastolic 46–87; PULSE 108–139; RESP 28–35; TEMP 97.7–98.8; O2SAT 92–100
[2023-01-26] MEDS: VANCOMYCIN 1GM/250ML 250 ML IV SCH ×2 (00:03→15:18)
[2023-01-26] MEDS: IPRATROPIUM BROM 0.5 MG/2.5ML INH SOL NEB SCH ×6 (02:18→22:25)
[2023-01-26] MEDS: LEVALBUTEROL HCL 1.25 MG/3 ML NEB NEB SCH ×6 (02:18→22:25)
[2023-01-26] MEDS: ACETYLCYSTEINE 20%(200MG/ML) SOL 4ML NEB SCH ×6 (02:19→22:25)
[2023-01-26] MEDS: D5W/SOD CHL 0.45%/KCL 20MEQ 1,000 ML IV SCH ×3 (05:42→23:23)
[2023-01-26] MEDS: CEFEPIME 2GM/50ML NS 50 ML IV SCH ×3 (05:42→21:40)
[2023-01-26] MEDS: LEVOTHYROXINE SODIUM 25 MCG TAB GT SCH (08:11)
[2023-01-26] MEDS: fentaNYL Drip 2500mCg/250mlNS 250 ML IV SCH (08:12)
[2023-01-26 08:49] LABS: Base Excess 4.6 mmol/L (-2.0-2.0)
[2023-01-26] MEDS: POLYETHYLENE GLYCOL 17 GM PWDR GT SCH (09:40)
[2023-01-26] MEDS: FLORASTOR (S. BOULARDII) 250 MG CAP PO SCH (09:40)
[2023-01-26] MEDS: PANTOPRAZOLE 40 MG/10 ML VIAL INJ IV SCH (09:40)
[2023-01-26] MEDS: METOPROLOL TARTRATE 25 MG TAB GT SCH (09:40)
[2023-01-26] MEDS: methylPREDNISolone SOD SUCC 40 MG/ML VL IV SCH ×2 (09:40→21:40)
[2023-01-26] MEDS: ENOXAPARIN SOD 40 MG/0.4 ML SYRINGE SC SCH (09:40)
[2023-01-26 15:12] LABS: Base Excess 2.9 mmol/L (-2.0-2.0)
[2023-01-26] MEDS: NOREPINEPHRINE 8 MG/250ML KIT 250 ML IV SCH (18:00)
[2023-01-26 18:11] LABS: Basophils # (auto) 0 10 ^3/uL (0-0.2); Eosinophils # (auto) 0 10 ^3/uL (0-0.8); Monocytes # (auto) 0.8 10 ^3/uL (0-1.3)
[2023-01-26 18:14] LABS: Hematocrit 31.2 % (41.0-53.0); Hemoglobin 9.4 g/dL (13.5-17.5); Lymphocytes # (auto) 0.4 10 ^3/uL (0.4-5.4); Mean Corpuscular Hemoglobin 23.8 pg (28.0-32.0); Mean Corpuscular Hgb Conc. 30.2 g/dL (32.0-36.0); Mean Corpuscular Volume 78.8 fL (80.0-100.0); Monocytes % (auto) 8.9 % (0.0-12.0); Neutrophils # (auto) 7.9 10 ^3/uL (1.6-8.6); Neutrophils % (auto) 87.1 % (37.0-80.0); Nucleated Red Blood Cells % 0.1 %; Red Blood Cells 3.96 10^6/uL (4.5-5.90); Red Cell Distribution Width 18.6 % (11.8-14.3); White Blood Cell 9.1 10^3/uL (4.4-10.8)
[2023-01-27] VITALS (109 sets, daily range): BP systolic 85–143; BP diastolic 45–80; PULSE 102–148; RESP 20–32; TEMP 97.2–98.4; O2SAT 75–100
[2023-01-27] MEDS: IPRATROPIUM BROM 0.5 MG/2.5ML INH SOL NEB SCH ×6 (02:24→22:43)
[2023-01-27] MEDS: ACETYLCYSTEINE 20%(200MG/ML) SOL 4ML NEB SCH ×6 (02:25→22:44)
[2023-01-27] MEDS: LEVALBUTEROL HCL 1.25 MG/3 ML NEB NEB SCH ×6 (02:25→22:43)
[2023-01-27 03:56] LABS: Basophils # (auto) 0 10 ^3/uL (0-0.2); Chloride 101 mmol/L (98-107); Eosinophils # (auto) 0 10 ^3/uL (0-0.8); Hematocrit 28.6 % (41.0-53.0); Lymphocytes # (auto) 0.2 10 ^3/uL (0.4-5.4); Lymphocytes % (auto) 3.1 % (10.0-50.0); Mean Corpuscular Hemoglobin 24.4 pg (28.0-32.0); Mean Corpuscular Hgb Conc. 31.3 g/dL (32.0-36.0); Monocytes # (auto) 0.4 10 ^3/uL (0-1.3); Monocytes % (auto) 5.2 % (0.0-12.0); Neutrophils # (auto) 6.3 10 ^3/uL (1.6-8.6); Neutrophils % (auto) 91.7 % (37.0-80.0); Nucleated Red Blood Cells % 0.1 %; Potassium 4.4 mmol/L (3.5-5.1); Red Blood Cells 3.67 10^6/uL (4.5-5.90); Red Cell Distribution Width 18.3 % (11.8-14.3); Sodium 135 mmol/L (136-145); White Blood Cell 6.9 10^3/uL (4.4-10.8)
[2023-01-27 03:57] LABS: Anion Gap 1 (5-15); Calcium 8.1 mg/dL (8.7-10.4); Carbon Dioxide 33 mmol/L (20-30)
[2023-01-27 04:02] LABS: Glucose 147 mg/dL (74-106)
[2023-01-27 04:14] LABS: Blood Urea Nitrogen 9 mg/dL (9-23)
[2023-01-27] MEDS: VANCOMYCIN 1GM/250ML 250 ML IV SCH ×2 (04:29→20:21)
[2023-01-27] MEDS: CEFEPIME 2GM/50ML NS 50 ML IV SCH ×3 (05:40→21:49)
[2023-01-27] MEDS: LEVOTHYROXINE SODIUM 25 MCG TAB GT SCH (06:30)
[2023-01-27] MEDS: D5W/SOD CHL 0.45%/KCL 20MEQ 1,000 ML IV SCH ×3 (07:56→20:19)
[2023-01-27] MEDS ORDERED: CALCIUM GLUC 1,000mg/50ml-NS 50 ML IV ONE (09:30)
[2023-01-27] MEDS ORDERED: LIDOCAINE 2%HCL (LOCAL ANESTH.) INJ 20ML MDV ONE (09:37)
[2023-01-27] MEDS ORDERED: SODIUM CHLORIDE LOCK 10 ML ONE (09:37)
[2023-01-27] MEDS ORDERED: GLYCOPYRROLATE 0.2 MG/ML 1ML VIAL ONE (09:38)
[2023-01-27] MEDS ORDERED: MIDAZOLAM HCL 5 MG/ML-1ML VIAL ONE (09:38)
[2023-01-27] MEDS ORDERED: EPINEPHrine HCL 1 MG/1 ML AMP ONE (09:38)
[2023-01-27] MEDS ORDERED: fentaNYL CITRATE 100 MCG/2 ML VL ONE (09:38)
[2023-01-27] MEDS ORDERED: LIDOCAINE 2% JELLY 11ml (GLYDO) ONE (09:41)
[2023-01-27 09:52] LABS: Hepatitis B Surface Antigen Negative (Negative)
[2023-01-27 09:58] LABS: Base Excess 2.7 mmol/L (-2.0-2.0)
[2023-01-27 10:14] LABS: Hepatitis C Antibody Negative (Negative)
[2023-01-27] MEDS: FLORASTOR (S. BOULARDII) 250 MG CAP PO SCH (11:12)
[2023-01-27] MEDS: methylPREDNISolone SOD SUCC 40 MG/ML VL IV SCH ×2 (11:13→21:49)
[2023-01-27] MEDS: METOPROLOL TARTRATE 25 MG TAB GT SCH (11:13)
[2023-01-27] MEDS: PANTOPRAZOLE 40 MG/10 ML VIAL INJ IV SCH (11:13)
[2023-01-27] MEDS: POLYETHYLENE GLYCOL 17 GM PWDR GT SCH (11:14)
[2023-01-27] MEDS: ENOXAPARIN SOD 40 MG/0.4 ML SYRINGE SC SCH (11:14)
[2023-01-27] MEDS: ERGOCALCIFEROL 50,000 UNIT(1.25MG) CAP PO SCH (11:45)
[2023-01-27] MEDS ORDERED: METOPROLOL TARTRATE 25 MG TAB PO ONE (13:30)
[2023-01-27] MEDS ORDERED: FUROSEMIDE 20 MG/2 ML VIAL IV ONE (13:45)
[2023-01-27] MEDS: NOREPINEPHRINE 8 MG/250ML KIT 250 ML IV SCH (20:30)
[2023-01-27] MEDS: fentaNYL Drip 2500mCg/250mlNS 250 ML IV SCH (21:54)
[2023-01-28] VITALS (101 sets, daily range): BP systolic 90–126; BP diastolic 44–79; PULSE 109–129; RESP 19–58; TEMP 97.9–98.8; O2SAT 90–100
[2023-01-28] MEDS: IPRATROPIUM BROM 0.5 MG/2.5ML INH SOL NEB SCH ×6 (02:17→22:38)
[2023-01-28] MEDS: LEVALBUTEROL HCL 1.25 MG/3 ML NEB NEB SCH ×6 (02:17→22:38)
[2023-01-28] MEDS: ACETYLCYSTEINE 20%(200MG/ML) SOL 4ML NEB SCH ×6 (02:17→22:38)
[2023-01-28 04:20] LABS: Basophils # (auto) 0 10 ^3/uL (0-0.2); Eosinophils # (auto) 0 10 ^3/uL (0-0.8); Lymphocytes # (auto) 0.4 10 ^3/uL (0.4-5.4); Monocytes # (auto) 0.5 10 ^3/uL (0-1.3); Neutrophils # (auto) 7.2 10 ^3/uL (1.6-8.6)
[2023-01-28 04:21] LABS: Eosinophils % (auto) 0.1 % (0.0-7.0); Hemoglobin 9.8 g/dL (13.5-17.5); Lymphocytes % (auto) 4.5 % (10.0-50.0); Mean Corpuscular Hemoglobin 24.2 pg (28.0-32.0); Mean Corpuscular Hgb Conc. 31.5 g/dL (32.0-36.0); Monocytes % (auto) 6.2 % (0.0-12.0); Neutrophils % (auto) 89.2 % (37.0-80.0); Red Blood Cells 4.03 10^6/uL (4.5-5.90); Red Cell Distribution Width 18.5 % (11.8-14.3); White Blood Cell 8.1 10^3/uL (4.4-10.8)
[2023-01-28 04:29] LABS: Chloride 95 mmol/L (98-107); Potassium 3.8 mmol/L (3.5-5.1); Sodium 135 mmol/L (136-145)
[2023-01-28 04:30] LABS: Anion Gap 4 (5-15); Calcium 8.5 mg/dL (8.7-10.4); Carbon Dioxide 36 mmol/L (20-30)
[2023-01-28 04:35] LABS: Blood Urea Nitrogen 6 mg/dL (9-23); Glucose 131 mg/dL (74-106)
[2023-01-28] MEDS: CEFEPIME 2GM/50ML NS 50 ML IV SCH ×3 (05:46→22:12)
[2023-01-28] MEDS: LEVOTHYROXINE SODIUM 25 MCG TAB GT SCH (05:47)
[2023-01-28 08:15] LABS: Base Excess 8.7 mmol/L (-2.0-2.0)
[2023-01-28] MEDS ORDERED: CALCIUM GLUC 1,000mg/50ml-NS 50 ML IV ONE (08:30)
[2023-01-28] MEDS: methylPREDNISolone SOD SUCC 40 MG/ML VL IV SCH ×2 (10:04→22:12)
[2023-01-28] MEDS: POLYETHYLENE GLYCOL 17 GM PWDR GT SCH (10:04)
[2023-01-28] MEDS: PANTOPRAZOLE 40 MG/10 ML VIAL INJ IV SCH (10:04)
[2023-01-28] MEDS: FLORASTOR (S. BOULARDII) 250 MG CAP PO SCH (10:04)
[2023-01-28] MEDS: METOPROLOL TARTRATE 25 MG TAB GT SCH (10:05)
[2023-01-28] MEDS: ENOXAPARIN SOD 40 MG/0.4 ML SYRINGE SC SCH (10:05)
[2023-01-28] MEDS: VANCOMYCIN 1GM/250ML 250 ML IV SCH (12:53)
[2023-01-28 12:58] LABS: Base Excess 7.5 mmol/L (-2.0-2.0)
[2023-01-28] MEDS: Jevity 1.2 Cal/Fiber 1 Liter GT SCH (15:58)
[2023-01-28] MEDS: NOREPINEPHRINE 8 MG/250ML KIT 250 ML IV SCH (18:00)
[2023-01-28] MEDS: fentaNYL Drip 2500mCg/250mlNS 250 ML IV SCH (19:45)
[2023-01-29] VITALS (87 sets, daily range): BP systolic 81–130; BP diastolic 43–88; PULSE 109–128; RESP 19–30; TEMP 97.5–98.4; O2SAT 89–99
[2023-01-29] MEDS: IPRATROPIUM BROM 0.5 MG/2.5ML INH SOL NEB SCH ×6 (01:43→22:06)
[2023-01-29] MEDS: LEVALBUTEROL HCL 1.25 MG/3 ML NEB NEB SCH ×6 (01:43→22:06)
[2023-01-29] MEDS: ACETYLCYSTEINE 20%(200MG/ML) SOL 4ML NEB SCH ×6 (01:43→22:06)
[2023-01-29 04:35] LABS: Basophils # (auto) 0 10 ^3/uL (0-0.2); Basophils % (auto) 0.1 % (0.0-2.0); Eosinophils # (auto) 0 10 ^3/uL (0-0.8); Hematocrit 30.7 % (41.0-53.0); Hemoglobin 9.6 g/dL (13.5-17.5); Lymphocytes # (auto) 0.4 10 ^3/uL (0.4-5.4); Lymphocytes % (auto) 3.5 % (10.0-50.0); Mean Corpuscular Hemoglobin 24.1 pg (28.0-32.0); Mean Corpuscular Hgb Conc. 31.3 g/dL (32.0-36.0); Mean Corpuscular Volume 76.9 fL (80.0-100.0); Monocytes # (auto) 0.5 10 ^3/uL (0-1.3); Neutrophils # (auto) 10.5 10 ^3/uL (1.6-8.6); Neutrophils % (auto) 92.4 % (37.0-80.0); Red Blood Cells 3.99 10^6/uL (4.5-5.90); Red Cell Distribution Width 19.5 % (11.8-14.3); White Blood Cell 11.4 10^3/uL (4.4-10.8)
[2023-01-29 04:41] LABS: Chloride 96 mmol/L (98-107); Potassium 3.5 mmol/L (3.5-5.1)
[2023-01-29 04:42] LABS: Calcium 8.7 mg/dL (8.5-10.1)
[2023-01-29 04:46] LABS: Carbon Dioxide 36 mmol/L (20-30)
[2023-01-29 04:47] LABS: BUN/Creatinine Ratio 53.3 (10.0-20.0); Blood Urea Nitrogen 8 mg/dL (9-23); Glucose 113 mg/dL (74-106)
[2023-01-29] MEDS: VANCOMYCIN 1GM/250ML 250 ML IV SCH (05:18)
[2023-01-29] MEDS: CEFEPIME 2GM/50ML NS 50 ML IV SCH ×2 (06:12→15:37)
[2023-01-29] MEDS: LEVOTHYROXINE SODIUM 25 MCG TAB GT SCH (06:12)
[2023-01-29 06:19] LABS: Anion Gap 3 (5-15); Sodium 135 mmol/L (136-145)
[2023-01-29 07:20] LABS: Base Excess 12.9 mmol/L (-2.0-2.0)
[2023-01-29] MEDS: methylPREDNISolone SOD SUCC 40 MG/ML VL IV SCH ×2 (09:52→22:32)
[2023-01-29] MEDS: PANTOPRAZOLE 40 MG/10 ML VIAL INJ IV SCH (09:52)
[2023-01-29] MEDS: ENOXAPARIN SOD 40 MG/0.4 ML SYRINGE SC SCH (09:52)
[2023-01-29] MEDS: POLYETHYLENE GLYCOL 17 GM PWDR GT SCH (09:52)
[2023-01-29] MEDS: FLORASTOR (S. BOULARDII) 250 MG CAP PO SCH (09:52)
[2023-01-29] MEDS: METOPROLOL TARTRATE 25 MG TAB GT SCH (10:24)
[2023-01-29 12:20] LABS: Base Excess 9.2 mmol/L (-2.0-2.0)
[2023-01-29] MEDS: NOREPINEPHRINE 8 MG/250ML KIT 250 ML IV SCH (18:00)
[2023-01-29] MEDS: CEFTAZIDIME-AVIBACTAM 2.5gm in D5W 100 ML IV SCH (22:33)
[2023-01-30] VITALS (97 sets, daily range): BP systolic 84–129; BP diastolic 44–80; PULSE 98–129; RESP 15–31; TEMP 96.8–98.1; O2SAT 90–99
[2023-01-30] MEDS: LEVALBUTEROL HCL 1.25 MG/3 ML NEB NEB SCH ×6 (02:00→22:15)
[2023-01-30] MEDS: ACETYLCYSTEINE 20%(200MG/ML) SOL 4ML NEB SCH ×6 (02:14→22:15)
[2023-01-30] MEDS: IPRATROPIUM BROM 0.5 MG/2.5ML INH SOL NEB SCH ×6 (02:14→22:15)
[2023-01-30] MEDS: Jevity 1.2 Cal/Fiber 1 Liter GT SCH (04:25)
[2023-01-30 04:36] LABS: Basophils # (auto) 0 10 ^3/uL (0-0.2); Eosinophils # (auto) 0 10 ^3/uL (0-0.8); Hemoglobin 9.6 g/dL (13.5-17.5); Monocytes # (auto) 0.4 10 ^3/uL (0-1.3); Neutrophils # (auto) 12.1 10 ^3/uL (1.6-8.6)
[2023-01-30 04:40] LABS: Lymphocytes # (auto) 0.4 10 ^3/uL (0.4-5.4); Lymphocytes % (auto) 2.8 % (10.0-50.0); Mean Corpuscular Hemoglobin 23.3 pg (28.0-32.0); Mean Corpuscular Hgb Conc. 30.8 g/dL (32.0-36.0); Mean Corpuscular Volume 75.6 fL (80.0-100.0); Monocytes % (auto) 3.2 % (0.0-12.0); Red Cell Distribution Width 19.7 % (11.8-14.3); White Blood Cell 12.8 10^3/uL (4.4-10.8)
[2023-01-30 05:15] LABS: Chloride 93 mmol/L (98-107); Potassium 3.5 mmol/L (3.5-5.1); Sodium 134 mmol/L (136-145)
[2023-01-30 05:16] LABS: Anion Gap 6 (5-15); Calcium 8.6 mg/dL (8.7-10.4); Carbon Dioxide 35 mmol/L (20-30)
[2023-01-30 05:21] LABS: Blood Urea Nitrogen 9 mg/dL (9-23); Glucose 118 mg/dL (74-106)
[2023-01-30] MEDS: CEFTAZIDIME-AVIBACTAM 2.5gm in D5W 100 ML IV SCH ×3 (06:11→23:46)
[2023-01-30] MEDS: LEVOTHYROXINE SODIUM 25 MCG TAB GT SCH (06:11)
[2023-01-30] MEDS: fentaNYL Drip 2500mCg/250mlNS 250 ML IV SCH ×2 (06:19→19:45)
[2023-01-30 09:23] LABS: Base Excess 14.3 mmol/L (-2.0-2.0)
[2023-01-30] MEDS: ALBUTEROL MEDNEB 2.5 mg/3ml NEB NEB PRN ×2 (09:50→13:28)
[2023-01-30] MEDS: POLYETHYLENE GLYCOL 17 GM PWDR GT SCH (10:00)
[2023-01-30] MEDS: ENOXAPARIN SOD 40 MG/0.4 ML SYRINGE SC SCH (10:36)
[2023-01-30] MEDS: methylPREDNISolone SOD SUCC 40 MG/ML VL IV SCH ×2 (10:37→21:28)
[2023-01-30] MEDS: PANTOPRAZOLE 40 MG/10 ML VIAL INJ IV SCH (10:37)
[2023-01-30] MEDS: METOPROLOL TARTRATE 25 MG TAB GT SCH (10:38)
[2023-01-30] MEDS: NOREPINEPHRINE 8 MG/250ML KIT 250 ML IV SCH (18:00)
[2023-01-31] VITALS (108 sets, daily range): BP systolic 84–137; BP diastolic 41–89; PULSE 100–140; RESP 18–36; TEMP 97.9–98.1; O2SAT 90–100
[2023-01-31] MEDS: LEVALBUTEROL HCL 1.25 MG/3 ML NEB NEB SCH ×4 (02:32→22:22)
[2023-01-31] MEDS: ACETYLCYSTEINE 20%(200MG/ML) SOL 4ML NEB SCH ×4 (02:32→22:22)
[2023-01-31] MEDS: IPRATROPIUM BROM 0.5 MG/2.5ML INH SOL NEB SCH ×4 (02:32→22:22)
[2023-01-31] MEDS ORDERED: dilTIAZem 25 MG/5 ML VIAL IV ONE (04:30)
[2023-01-31 04:44] LABS: Chloride 91 mmol/L (98-107); Potassium 3.8 mmol/L (3.5-5.1); Sodium 132 mmol/L (136-145)
[2023-01-31 04:45] LABS: Anion Gap 8 (5-15); Calcium 8.6 mg/dL (8.7-10.4); Carbon Dioxide 33 mmol/L (20-30)
[2023-01-31 04:50] LABS: BUN/Creatinine Ratio 43.8 (10.0-20.0); Blood Urea Nitrogen 7 mg/dL (9-23); Glucose 111 mg/dL (74-106)
[2023-01-31 04:56] LABS: Basophils # (auto) 0 10 ^3/uL (0-0.2); Eosinophils # (auto) 0 10 ^3/uL (0-0.8); Lymphocytes # (auto) 0.4 10 ^3/uL (0.4-5.4); Mean Corpuscular Hemoglobin 23.9 pg (28.0-32.0); Mean Corpuscular Hgb Conc. 31.4 g/dL (32.0-36.0); Mean Corpuscular Volume 76.2 fL (80.0-100.0); Monocytes # (auto) 0.5 10 ^3/uL (0-1.3); Neutrophils # (auto) 10.5 10 ^3/uL (1.6-8.6); White Blood Cell 11.4 10^3/uL (4.4-10.8)
[2023-01-31 04:58] LABS: Hematocrit 33.7 % (41.0-53.0); Hemoglobin 10.6 g/dL (13.5-17.5); Lymphocytes % (auto) 3.6 % (10.0-50.0); Monocytes % (auto) 4.1 % (0.0-12.0); Neutrophils % (auto) 92.3 % (37.0-80.0); Nucleated Red Blood Cells % 0.1 %; Red Blood Cells 4.42 10^6/uL (4.5-5.90); Red Cell Distribution Width 19.6 % (11.8-14.3)
[2023-01-31] MEDS ORDERED: METOPROLOL TARTRATE 1MG/1ML-5ML VIAL IV ONE (05:15)
[2023-01-31] MEDS: CEFTAZIDIME-AVIBACTAM 2.5gm in D5W 100 ML IV SCH ×3 (05:38→21:25)
[2023-01-31] MEDS: LEVOTHYROXINE SODIUM 25 MCG TAB GT SCH (05:39)
[2023-01-31 08:46] LABS: Base Excess 10.1 mmol/L (-2.0-2.0)
[2023-01-31] MEDS: METOPROLOL TARTRATE 25 MG TAB PO SCH ×2 (09:37→21:24)
[2023-01-31] MEDS: methylPREDNISolone SOD SUCC 40 MG/ML VL IV SCH ×2 (09:37→21:24)
[2023-01-31] MEDS: PANTOPRAZOLE 40 MG/10 ML VIAL INJ IV SCH (09:37)
[2023-01-31] MEDS: METOPROLOL TARTRATE 25 MG TAB GT SCH ×2 (09:38→21:25)
[2023-01-31] MEDS: POLYETHYLENE GLYCOL 17 GM PWDR GT SCH (09:38)
[2023-01-31] MEDS: ENOXAPARIN SOD 40 MG/0.4 ML SYRINGE SC SCH (09:38)
[2023-01-31] MEDS: FREE WATER GT SCH ×2 (12:39→17:43)
[2023-01-31] MEDS: NOREPINEPHRINE 8 MG/250ML KIT 250 ML IV SCH (17:43)
[2023-02-01] VITALS (84 sets, daily range): BP systolic 83–162; BP diastolic 45–100; PULSE 99–137; RESP 19–38; TEMP 97.4–98.5; O2SAT 91–100
[2023-02-01] MEDS: FREE WATER GT SCH ×6 (00:01→23:23)
[2023-02-01 00:56] LABS: Base Excess 9.7 mmol/L (-2.0-2.0)
[2023-02-01 01:37] LABS: Hematocrit 36.2 % (41.0-53.0); Hemoglobin 11.6 g/dL (13.5-17.5); Mean Corpuscular Hemoglobin 24.7 pg (28.0-32.0); Mean Corpuscular Hgb Conc. 32.1 g/dL (32.0-36.0); Mean Corpuscular Volume 76.9 fL (80.0-100.0); Red Cell Distribution Width 19.8 % (11.8-14.3); White Blood Cell 15.3 10^3/uL (4.4-10.8)
[2023-02-01 01:55] LABS: Chloride 92 mmol/L (98-107); Potassium 4.1 mmol/L (3.5-5.1); Sodium 133 mmol/L (136-145)
[2023-02-01 01:56] LABS: Anion Gap 5 (5-15); Calcium 8.9 mg/dL (8.7-10.4); Carbon Dioxide 36 mmol/L (20-30)
[2023-02-01 02:01] LABS: BUN/Creatinine Ratio 42.1 (10.0-20.0); Blood Urea Nitrogen 8 mg/dL (9-23); Glucose 164 mg/dL (74-106)
[2023-02-01] MEDS: IPRATROPIUM BROM 0.5 MG/2.5ML INH SOL NEB SCH ×6 (02:19→22:09)
[2023-02-01] MEDS: ACETYLCYSTEINE 20%(200MG/ML) SOL 4ML NEB SCH ×6 (02:19→22:09)
[2023-02-01] MEDS: LEVALBUTEROL HCL 1.25 MG/3 ML NEB NEB SCH ×6 (02:19→22:09)
[2023-02-01 02:20] LABS: Band Neutrophils % (manual) 0; Basophils % (manual) 0 (0.0-2.0); Blast Cells 0; Eosinophils % (manual) 0 (0-7); Metamyelocytes % 0; Myelocytes % 0; Promyelocytes % 0; Reactive Lymphocytes 0
[2023-02-01] MEDS: LEVOTHYROXINE SODIUM 25 MCG TAB GT SCH (06:22)
[2023-02-01] MEDS: CEFTAZIDIME-AVIBACTAM 2.5gm in D5W 100 ML IV SCH ×3 (06:23→21:21)
[2023-02-01] MEDS: Jevity 1.2 Cal/Fiber 1 Liter GT SCH (06:24)
[2023-02-01] MEDS ORDERED: hydrOXYzine HCL 10 MG TAB PO PRN (06:45)
[2023-02-01] MEDS ORDERED: FUROSEMIDE 20 MG TAB GT ONE (06:45)
[2023-02-01] MEDS ORDERED: VANCOMYCIN PER PHARMACY 0 MG IV SCH (07:00)
[2023-02-01] MEDS ORDERED: VANCOMYCIN 1GM/250ML 250 ML IV ONE (07:15)
[2023-02-01] MEDS: METOPROLOL TARTRATE 25 MG TAB PO SCH ×2 (08:15→21:21)
[2023-02-01] MEDS: POLYETHYLENE GLYCOL 17 GM PWDR GT SCH (08:54)
[2023-02-01 09:02] LABS: Lymphocytes % (manual) 1 (10.0-50.0); Monocytes % (manual) 2 (0-12)
[2023-02-01 09:05] LABS: Platelet Estimate Adequate
[2023-02-01] MEDS: methylPREDNISolone SOD SUCC 40 MG/ML VL IV SCH ×2 (09:07→21:22)
[2023-02-01] MEDS: PANTOPRAZOLE 40 MG/10 ML VIAL INJ IV SCH (09:07)
[2023-02-01] MEDS: FLORASTOR (S. BOULARDII) 250 MG CAP PO SCH (10:42)
[2023-02-01] MEDS: ENOXAPARIN SOD 40 MG/0.4 ML SYRINGE SC SCH (10:42)
[2023-02-01] MEDS: MORPHINE SULFATE INJ 2 MG/ml SYRG IV PRN (12:33)
[2023-02-01] MEDS ORDERED: LABETALOL HCL 5 MG/ML 4ML SYRINGE IV ONE (13:45)
[2023-02-01] MEDS: NOREPINEPHRINE 8 MG/250ML KIT 250 ML IV SCH (16:53)
[2023-02-01] MEDS ORDERED: VANCOMYCIN 1GM/250ML 250 ML IV SCH (23:00)
[2023-02-02] VITALS (69 sets, daily range): BP systolic 90–145; BP diastolic 47–96; PULSE 100–124; RESP 22–37; TEMP 98–98.6; O2SAT 96–100
[2023-02-02] MEDS: ACETYLCYSTEINE 20%(200MG/ML) SOL 4ML NEB SCH ×6 (02:18→22:39)
[2023-02-02] MEDS: IPRATROPIUM BROM 0.5 MG/2.5ML INH SOL NEB SCH ×6 (02:19→22:39)
[2023-02-02] MEDS: LEVALBUTEROL HCL 1.25 MG/3 ML NEB NEB SCH ×6 (02:19→22:39)
[2023-02-02 04:03] LABS: Basophils # (auto) 0 10 ^3/uL (0-0.2); Eosinophils # (auto) 0 10 ^3/uL (0-0.8); White Blood Cell 12.8 10^3/uL (4.4-10.8)
[2023-02-02 04:06] LABS: Hematocrit 32.5 % (41.0-53.0); Hemoglobin 10.2 g/dL (13.5-17.5); Lymphocytes # (auto) 0.3 10 ^3/uL (0.4-5.4); Lymphocytes % (auto) 2.5 % (10.0-50.0); Mean Corpuscular Hemoglobin 24.1 pg (28.0-32.0); Mean Corpuscular Hgb Conc. 31.4 g/dL (32.0-36.0); Mean Corpuscular Volume 76.9 fL (80.0-100.0); Monocytes % (auto) 7.9 % (0.0-12.0); Neutrophils # (auto) 11.5 10 ^3/uL (1.6-8.6); Neutrophils % (auto) 89.6 % (37.0-80.0); Red Blood Cells 4.22 10^6/uL (4.5-5.90)
[2023-02-02 04:25] LABS: Red Cell Distribution Width 20.8 % (11.8-14.3)
[2023-02-02 04:28] LABS: Calcium 8.6 mg/dL (8.7-10.4); Chloride 95 mmol/L (98-107); Potassium 3.8 mmol/L (3.5-5.1); Sodium 136 mmol/L (136-145)
[2023-02-02 04:29] LABS: Anion Gap 2 (5-15); Carbon Dioxide 39 mmol/L (20-30)
[2023-02-02 04:34] LABS: Blood Urea Nitrogen 9 mg/dL (9-23); Glucose 145 mg/dL (74-106)
[2023-02-02 05:47] LABS: Anisocytosis Slight; Hypochromia Slight
[2023-02-02 05:48] LABS: Platelet Estimate Adequate
[2023-02-02] MEDS: CEFTAZIDIME-AVIBACTAM 2.5gm in D5W 100 ML IV SCH ×3 (06:19→21:46)
[2023-02-02] MEDS: FREE WATER GT SCH ×3 (06:19→17:31)
[2023-02-02] MEDS: LEVOTHYROXINE SODIUM 25 MCG TAB GT SCH (06:19)
[2023-02-02] MEDS: POLYETHYLENE GLYCOL 17 GM PWDR GT SCH (10:00)
[2023-02-02] MEDS: methylPREDNISolone SOD SUCC 40 MG/ML VL IV SCH ×2 (10:22→21:42)
[2023-02-02] MEDS: PANTOPRAZOLE 40 MG/10 ML VIAL INJ IV SCH (10:22)
[2023-02-02] MEDS: FLORASTOR (S. BOULARDII) 250 MG CAP PO SCH (10:23)
[2023-02-02] MEDS: METOPROLOL TARTRATE 25 MG TAB PO SCH ×2 (10:24→21:45)
[2023-02-02] MEDS: ENOXAPARIN SOD 40 MG/0.4 ML SYRINGE SC SCH (10:26)
[2023-02-02] MEDS: NOREPINEPHRINE 8 MG/250ML KIT 250 ML IV SCH (18:00)
[2023-02-02] MEDS: Jevity 1.2 Cal/Fiber 1 Liter GT SCH (18:33)
[2023-02-03] VITALS (33 sets, daily range): BP systolic 96–157; BP diastolic 49–96; PULSE 100–127; RESP 21–35; TEMP 97.9–98.9; O2SAT 90–100
[2023-02-03] MEDS: FREE WATER GT SCH ×3 (00:22→14:02)
[2023-02-03] MEDS: LEVALBUTEROL HCL 1.25 MG/3 ML NEB NEB SCH ×6 (02:00→22:01)
[2023-02-03] MEDS: ACETYLCYSTEINE 20%(200MG/ML) SOL 4ML NEB SCH ×6 (02:19→22:01)
[2023-02-03] MEDS: IPRATROPIUM BROM 0.5 MG/2.5ML INH SOL NEB SCH ×6 (02:19→22:01)
[2023-02-03] MEDS: ALBUTEROL MEDNEB 2.5 mg/3ml NEB NEB PRN (02:19)
[2023-02-03 04:24] LABS: Basophils # (auto) 0 10 ^3/uL (0-0.2); Eosinophils # (auto) 0 10 ^3/uL (0-0.8); Hemoglobin 10.2 g/dL (13.5-17.5); Lymphocytes # (auto) 0.3 10 ^3/uL (0.4-5.4); Monocytes # (auto) 0.4 10 ^3/uL (0-1.3)
[2023-02-03 04:26] LABS: Hematocrit 32.8 % (41.0-53.0); Lymphocytes % (auto) 2.5 % (10.0-50.0); Mean Corpuscular Hemoglobin 24.1 pg (28.0-32.0); Mean Corpuscular Hgb Conc. 31.3 g/dL (32.0-36.0); Mean Corpuscular Volume 77.2 fL (80.0-100.0); Monocytes % (auto) 3.4 % (0.0-12.0); Neutrophils # (auto) 12.2 10 ^3/uL (1.6-8.6); Neutrophils % (auto) 94.1 % (37.0-80.0); Red Blood Cells 4.25 10^6/uL (4.5-5.90)
[2023-02-03 04:27] LABS: Chloride 95 mmol/L (98-107); Potassium 4.1 mmol/L (3.5-5.1); Sodium 135 mmol/L (136-145)
[2023-02-03 04:28] LABS: Anion Gap 5 (5-15); Carbon Dioxide 35 mmol/L (20-30)
[2023-02-03 04:29] LABS: Calcium 8.9 mg/dL (8.5-10.1)
[2023-02-03 04:33] LABS: Glucose 155 mg/dL (74-106)
[2023-02-03 04:34] LABS: Blood Urea Nitrogen 9 mg/dL (9-23)
[2023-02-03 04:49] LABS: Red Cell Distribution Width 20.6 % (11.8-14.3)
[2023-02-03] MEDS: LEVOTHYROXINE SODIUM 25 MCG TAB GT SCH (06:23)
[2023-02-03] MEDS: CEFTAZIDIME-AVIBACTAM 2.5gm in D5W 100 ML IV SCH ×3 (06:24→22:18)
[2023-02-03 08:36] LABS: Base Excess 10.5 mmol/L (-2.0-2.0)
[2023-02-03] MEDS: MORPHINE SULFATE INJ 2 MG/ml SYRG IV PRN (09:25)
[2023-02-03] MEDS: PANTOPRAZOLE 40 MG/10 ML VIAL INJ IV SCH (09:47)
[2023-02-03] MEDS: methylPREDNISolone SOD SUCC 40 MG/ML VL IV SCH ×2 (09:49→22:17)
[2023-02-03] MEDS: ENOXAPARIN SOD 40 MG/0.4 ML SYRINGE SC SCH (09:50)
[2023-02-03] MEDS: METOPROLOL TARTRATE 25 MG TAB PO SCH ×2 (09:50→22:18)
[2023-02-03] MEDS: ERGOCALCIFEROL 50,000 UNIT(1.25MG) CAP PO SCH (09:59)
[2023-02-03] MEDS: POLYETHYLENE GLYCOL 17 GM PWDR GT SCH (10:00)
[2023-02-03] MEDS: Jevity 1.2 Cal/Fiber 1 Liter GT SCH (14:02)
[2023-02-03] MEDS: LORazepam 2MG/ML-1ML VIAL IV PRN (15:16)
[2023-02-03] MEDS ORDERED: ONDANSETRON HCL 4 MG/2 ML VIAL IV PRN (15:30)
[2023-02-03] MEDS: NOREPINEPHRINE 8 MG/250ML KIT 250 ML IV SCH (18:00)
[2023-02-04] VITALS (44 sets, daily range): BP systolic 107–140; BP diastolic 59–91; PULSE 98–129; RESP 22–38; TEMP 97.7–98.3; O2SAT 91–100
[2023-02-04] MEDS: ACETYLCYSTEINE 20%(200MG/ML) SOL 4ML NEB SCH ×6 (02:19→21:53)
[2023-02-04] MEDS: LEVALBUTEROL HCL 1.25 MG/3 ML NEB NEB SCH ×6 (02:19→21:53)
[2023-02-04] MEDS: IPRATROPIUM BROM 0.5 MG/2.5ML INH SOL NEB SCH ×6 (02:19→21:53)
[2023-02-04 05:09] LABS: Anion Gap 5 (5-15); Carbon Dioxide 35 mmol/L (20-30); Chloride 95 mmol/L (98-107); Potassium 4.1 mmol/L (3.5-5.1); Sodium 135 mmol/L (136-145)
[2023-02-04 05:10] LABS: Calcium 9.3 mg/dL (8.5-10.1)
[2023-02-04 05:15] LABS: BUN/Creatinine Ratio 53.3 (10.0-20.0); Blood Urea Nitrogen 8 mg/dL (9-23); Glucose 109 mg/dL (74-106)
[2023-02-04 05:35] LABS: Basophils # (auto) 0 10 ^3/uL (0-0.2); Eosinophils # (auto) 0 10 ^3/uL (0-0.8); Hemoglobin 10.4 g/dL (13.5-17.5); Lymphocytes # (auto) 0.4 10 ^3/uL (0.4-5.4)
[2023-02-04 05:40] LABS: Lymphocytes % (auto) 3.1 % (10.0-50.0); Mean Corpuscular Hemoglobin 24.4 pg (28.0-32.0); Mean Corpuscular Hgb Conc. 31.5 g/dL (32.0-36.0); Mean Corpuscular Volume 77.2 fL (80.0-100.0); Monocytes # (auto) 0.3 10 ^3/uL (0-1.3); Monocytes % (auto) 2.9 % (0.0-12.0); Neutrophils # (auto) 11.2 10 ^3/uL (1.6-8.6); Nucleated Red Blood Cells % 0.1 %; Red Blood Cells 4.28 10^6/uL (4.5-5.90); White Blood Cell 11.9 10^3/uL (4.4-10.8)
[2023-02-04] MEDS: LEVOTHYROXINE SODIUM 25 MCG TAB GT SCH (06:28)
[2023-02-04] MEDS: CEFTAZIDIME-AVIBACTAM 2.5gm in D5W 100 ML IV SCH ×3 (06:29→21:48)
[2023-02-04] MEDS: methylPREDNISolone SOD SUCC 40 MG/ML VL IV SCH ×2 (10:20→21:48)
[2023-02-04] MEDS: ENOXAPARIN SOD 40 MG/0.4 ML SYRINGE SC SCH (10:20)
[2023-02-04] MEDS: PANTOPRAZOLE 40 MG/10 ML VIAL INJ IV SCH (10:20)
[2023-02-04] MEDS: METOPROLOL TARTRATE 25 MG TAB PO SCH ×2 (10:20→21:48)
[2023-02-04] MEDS: POLYETHYLENE GLYCOL 17 GM PWDR GT SCH (10:20)
[2023-02-04] MEDS: NOREPINEPHRINE 8 MG/250ML KIT 250 ML IV SCH (18:00)
[2023-02-04] MEDS: Jevity 1.2 Cal/Fiber 1 Liter GT SCH (18:14)
[2023-02-04] MEDS: LORazepam 2MG/ML-1ML VIAL IV PRN (21:56)
[2023-02-05] VITALS (83 sets, daily range): BP systolic 84–163; BP diastolic 48–90; PULSE 82–131; RESP 0–31; TEMP 36.7; O2SAT 92–100
[2023-02-05] MEDS: IPRATROPIUM BROM 0.5 MG/2.5ML INH SOL NEB SCH ×6 (01:46→20:42)
[2023-02-05] MEDS: LEVALBUTEROL HCL 1.25 MG/3 ML NEB NEB SCH ×6 (01:47→20:42)
[2023-02-05] MEDS: ACETYLCYSTEINE 20%(200MG/ML) SOL 4ML NEB SCH ×6 (01:47→20:43)
[2023-02-05 04:58] LABS: Basophils # (auto) 0 10 ^3/uL (0-0.2); Eosinophils # (auto) 0 10 ^3/uL (0-0.8); Lymphocytes # (auto) 0.4 10 ^3/uL (0.4-5.4); Lymphocytes % (auto) 3.4 % (10.0-50.0)
[2023-02-05 05:02] LABS: Hematocrit 32.5 % (41.0-53.0); Hemoglobin 10.1 g/dL (13.5-17.5); Mean Corpuscular Hemoglobin 24.1 pg (28.0-32.0); Mean Corpuscular Volume 77.5 fL (80.0-100.0); Monocytes # (auto) 0.4 10 ^3/uL (0-1.3); Monocytes % (auto) 3.4 % (0.0-12.0); Neutrophils # (auto) 11.7 10 ^3/uL (1.6-8.6); Neutrophils % (auto) 93.2 % (37.0-80.0); Red Blood Cells 4.19 10^6/uL (4.5-5.90); White Blood Cell 12.6 10^3/uL (4.4-10.8)
[2023-02-05 05:07] LABS: Calcium 9.2 mg/dL (8.5-10.1); Chloride 95 mmol/L (98-107); Potassium 4.2 mmol/L (3.5-5.1); Sodium 134 mmol/L (136-145)
[2023-02-05 05:08] LABS: Anion Gap 9 (5-15); Carbon Dioxide 30 mmol/L (20-30)
[2023-02-05 05:14] LABS: BUN/Creatinine Ratio 53.3 (10.0-20.0); Blood Urea Nitrogen 8 mg/dL (9-23); Glucose 106 mg/dL (74-106)
[2023-02-05] MEDS: LEVOTHYROXINE SODIUM 25 MCG TAB GT SCH (06:07)
[2023-02-05] MEDS: CEFTAZIDIME-AVIBACTAM 2.5gm in D5W 100 ML IV SCH ×3 (06:08→22:00)
[2023-02-05 09:39] LABS: Base Excess 6.5 mmol/L (-2.0-2.0)
[2023-02-05] MEDS: PANTOPRAZOLE 40 MG/10 ML VIAL INJ IV SCH (10:21)
[2023-02-05] MEDS: ENOXAPARIN SOD 40 MG/0.4 ML SYRINGE SC SCH (10:21)
[2023-02-05] MEDS: methylPREDNISolone SOD SUCC 40 MG/ML VL IV SCH ×2 (10:21→20:55)
[2023-02-05] MEDS ORDERED: LORA2TAB89 PO (11:11)
[2023-02-05] MEDS: POLYETHYLENE GLYCOL 17 GM PWDR GT SCH (11:22)
[2023-02-05] MEDS: METOPROLOL TARTRATE 25 MG TAB PO SCH ×2 (11:22→20:56)
[2023-02-05] MEDS ORDERED: ALBU0.084 NEB (14:45)
[2023-02-05] MEDS: NOREPINEPHRINE 8 MG/250ML KIT 250 ML IV SCH (18:00)
[2023-02-06] VITALS: BP 94/52; PULSE 103; PULSE 105; RESP 24; TEMP 98.6; O2SAT 96
[2023-02-06 00:15] VITALS: BP 116/70; PULSE 104; RESP 24; O2SAT 96
== END 2023-02-06 01:05 | disposition home or self-care (01) | DRG 720 ==
LOC: EDBD 01:28 → ER 01:28 → TELE 09:15 → ICU WEST 15:48 → ICU CENTRL 02-03 11:35
PROVIDERS: ADMIT Nurse Practitioner Family; ATTEND Internal Medicine Pulmonary Disease
PROC: 5A1955Z Respiratory Ventilation, Greater than 96 Consecutive Hours (ICD-10-PCS; principal; 2023-01-24)
PROC: 0BCB8ZZ Extirpation of Matter from Left Lower Lobe Bronchus, Via Natural or Artificial Opening Endoscopic (ICD-10-PCS; 2023-01-27)
DX: A41.9 Sepsis, unspecified organism (principal); J96.21 Acute and chronic respiratory failure with hypoxia; J95.851 Ventilator associated pneumonia; R65.21 Severe sepsis with septic shock; E87.29 Other acidosis; J15.1 Pneumonia due to Pseudomonas; J47.1 Bronchiectasis with (acute) exacerbation; I21.A1 Myocardial infarction type 2; J90 Pleural effusion, not elsewhere classified; I11.9 Hypertensive heart disease without heart failure; G71.00 Muscular dystrophy, unspecified; M41.9 Scoliosis, unspecified; E03.9 Hypothyroidism, unspecified; J93.82 Other air leak; Z99.81 Dependence on supplemental oxygen; E55.9 Vitamin D deficiency, unspecified; K31.89 Other diseases of stomach and duodenum; J43.9 Emphysema, unspecified; Y84.8 Other medical procedures as the cause of abnormal reaction of the patient, or of later complication, without mention of misadventure at the time of the procedure; Y92.89 Other specified places as the place of occurrence of the external cause; Z74.01 Bed confinement status; Z93.0 Tracheostomy status; Z99.11 Dependence on respirator [ventilator] status; Z82.49 Family history of ischemic heart disease and other diseases of the circulatory system; Z83.3 Family history of diabetes mellitus; Z88.1 Allergy status to other antibiotic agents
CPT/HCPCS: 36415; 36600; 71045; 71250; 74018; 74176; 76604; 80048; 80053; 80061; 80202; 81001; 82306; 82565; 82607; 82805; 82962; 83605; 83735; 83880; 84443; 84484; 85007; 85025; 85027; 86141; 86803; 87040; 87070; 87077; 87081; 87086; 87186; 87205; 87340; 93005; 94002; 94003; 94640; 96365; 96367; 96375; C9113; G0378; J0171; J0692; J0714; J1956; J2250; J3490; J7060

== ENCOUNTER 2023-04-19 22:17 | Inpatient (IN) | payer MEDICAID ==
[~2023-04-19] VITALS: Ht 172.7 cm; Wt 66.7 kg
[~2023-04-19 22:17] MED LIST changes: +ALBU0.084 NEB; +LORA2TAB89 PO
[2023-04-19 22:19] VITALS: BP 118/73; PULSE 135; RESP 32; O2SAT 93
[2023-04-19 22:59] LABS: Basophils # (auto) 0 10 ^3/uL (0-0.2); Basophils % (auto) 0.1 % (0.0-2.0); Eosinophils # (auto) 0 10 ^3/uL (0-0.8); Eosinophils % (auto) 0.3 % (0.0-7.0); Hematocrit 36.3 % (41.0-53.0); Hemoglobin 10.7 g/dL (13.5-17.5); Lymphocytes # (auto) 1.3 10 ^3/uL (0.4-5.4); Lymphocytes % (auto) 6.8 % (10.0-50.0); Mean Corpuscular Hemoglobin 24.7 pg (28.0-32.0); Mean Corpuscular Hgb Conc. 29.5 g/dL (32.0-36.0); Mean Corpuscular Volume 83.6 fL (80.0-100.0); Monocytes % (auto) 5.1 % (0.0-12.0); Neutrophils # (auto) 16.4 10 ^3/uL (1.6-8.6); Neutrophils % (auto) 87.7 % (37.0-80.0); Nucleated Red Blood Cells % 0.1 %; Red Blood Cells 4.35 10^6/uL (4.5-5.90); Red Cell Distribution Width 20.2 % (11.8-14.3); White Blood Cell 18.8 10^3/uL (4.4-10.8)
[2023-04-19 23:03] LABS: Chloride 98 mmol/L (98-107); Potassium 4.1 mmol/L (3.5-5.1); Sodium 134 mmol/L (136-145)
[2023-04-19 23:04] LABS: Anion Gap 9 (5-15); Calcium 9.6 mg/dL (8.7-10.4); Carbon Dioxide 27 mmol/L (20-30)
[2023-04-19 23:09] LABS: BUN/Creatinine Ratio 33.3 (10.0-20.0); Blood Urea Nitrogen 6 mg/dL (9-23); Glucose 106 mg/dL (74-106)
[2023-04-19] MEDS: SODIUM CHLORIDE 0.9% 1,000 ML IV ONE (23:15)
[2023-04-19] MEDS ORDERED: NITROGLYCERIN 0.4 MG SL TAB SL PRN (23:45)
[2023-04-19] MEDS ORDERED: DOCUSATE SOD 100 MG CAP PO PRN (23:45)
[2023-04-19] MEDS ORDERED: HYDROcodone-ACET 5/325MG TAB PO PRN (23:45)
[2023-04-19] MEDS ORDERED: MORPHINE SULFATE INJ 2 MG/ml SYRG IV PRN (23:45)
[2023-04-19 23:53] LABS: Base Excess 1.1 mmol/L (-2.0-2.0)
[2023-04-20] VITALS (14 sets, daily range): BP systolic 95–139; BP diastolic 63–97; PULSE 116–136; RESP 18–38; O2SAT 91–100
[2023-04-20] MEDS: cefTAZidime 1 GM in SODIUM CHL 0.9% 50 ML IV ONE (00:30)
[2023-04-20] MEDS: SODIUM CHLORIDE 0.9% 1,000 ML IV SCH (02:17)
[2023-04-20 04:47] LABS: Urine Bacteria NONE SEEN /hpf (None Seen); Urine Blood Negative /uL (Negative); Urine Clarity Clear (Clear); Urine Color Yellow (Yellow); Urine Hyaline Cast FEW /lpf (0 - 2); Urine Mucus FEW (None Seen); Urine Protein, UAD 1+ (Negative); Urine Specific Gravity 1.025 (1.001-1.035); Urine Urobilinogen Normal (Negative); Urine WBC 5 /hpf (0 - 3); Urine pH 5.5 (5.0-8.0)
[2023-04-20] MEDS: LORazepam 2MG/ML-1ML VIAL IV PRN (05:11)
[2023-04-20 05:17] LABS: Chloride 101 mmol/L (98-107); Potassium 3.9 mmol/L (3.5-5.1); Sodium 137 mmol/L (136-145)
[2023-04-20 05:18] LABS: Anion Gap 12 (5-15); Calcium 8.9 mg/dL (8.7-10.4); Carbon Dioxide 24 mmol/L (20-30)
[2023-04-20 05:23] LABS: Alkaline Phosphatase 45 U/L (46-116); Blood Urea Nitrogen 8 mg/dL (9-23); Glucose 106 mg/dL (74-106)
[2023-04-20 05:24] LABS: Aspartate Aminotransferase 40 U/L (13-40)
[2023-04-20 05:25] LABS: Bilirubin, Total 0.4 mg/dL (0.2-1.0); Total Protein 8.1 g/dL (5.7-8.2)
[2023-04-20 05:30] LABS: Basophils # (auto) 0.1 10 ^3/uL (0-0.2); Basophils % (auto) 0.2 % (0.0-2.0); Eosinophils # (auto) 0 10 ^3/uL (0-0.8); Eosinophils % (auto) 0.1 % (0.0-7.0); Hematocrit 31.8 % (41.0-53.0); Hemoglobin 9.8 g/dL (13.5-17.5); Lymphocytes # (auto) 1.2 10 ^3/uL (0.4-5.4); Lymphocytes % (auto) 4.8 % (10.0-50.0); Mean Corpuscular Hemoglobin 24.8 pg (28.0-32.0); Mean Corpuscular Hgb Conc. 30.8 g/dL (32.0-36.0); Mean Corpuscular Volume 80.6 fL (80.0-100.0); Monocytes # (auto) 0.8 10 ^3/uL (0-1.3); Monocytes % (auto) 3.3 % (0.0-12.0); Neutrophils # (auto) 22.3 10 ^3/uL (1.6-8.6); Neutrophils % (auto) 91.6 % (37.0-80.0); Nucleated Red Blood Cells % 0.1 %; Red Blood Cells 3.94 10^6/uL (4.5-5.90); Red Cell Distribution Width 19.4 % (11.8-14.3); White Blood Cell 24.3 10^3/uL (4.4-10.8)
[2023-04-20 05:42] LABS: Alanine Aminotransferase 13 U/L (7-40)
[2023-04-20] MEDS: METOPROLOL TARTRATE 25 MG TAB GT ONE (05:55)
[2023-04-20] MEDS: methylPREDNISolone SOD SUCC 40 MG/ML VL IV SCH (06:25)
[2023-04-20] MEDS: LEVOTHYROXINE SODIUM 25 MCG TAB PO SCH (06:56)
[2023-04-20] MEDS: cefTAZidime 2 GM in D5W 5% 100 ML IV SCH (08:19)
[2023-04-20] MEDS ORDERED: levoFLOXacin 500MG 100 ML IV SCH (10:00)
[2023-04-20] MEDS: HEPARIN SODIUM (PORCINE) 5000 UNITS/ML 1ML VIAL SC SCH (10:55)
[2023-04-20] MEDS: FAMOTIDINE (10MG/ML) 2ML VL IV SCH (10:56)
[2023-04-20] MEDS: METOPROLOL TARTRATE 25 MG TAB PO SCH (10:56)
[2023-04-20] MEDS: Jevity 1.2 Cal/Fiber 1 Liter GT SCH (13:20)
[2023-04-20] MEDS: HYDROCORTISONE SOD SUCC 100 MG/2ML INJ VIAL IV SCH (18:25)
[2023-04-20] MEDS: CEFTAZIDIME-AVIBACTAM 2.5gm 2.5 GM in D5W 5% 100 ML IV SCH (21:28)
[2023-04-20] MEDS ORDERED: CEFTAZIDIME IV SCH (22:00)
[2023-04-20] MEDS ORDERED: AVIBACTAM IV SCH (22:00)
[2023-04-21] VITALS (10 sets, daily range): BP systolic 96–138; BP diastolic 52–87; PULSE 112–134; RESP 20–38; O2SAT 90–100
[2023-04-21 05:56] LABS: Basophils # (auto) 0 10 ^3/uL (0-0.2); Eosinophils # (auto) 0 10 ^3/uL (0-0.8); Monocytes # (auto) 0.4 10 ^3/uL (0-1.3)
[2023-04-21 05:59] LABS: Hematocrit 28.9 % (41.0-53.0); Lymphocytes # (auto) 0.5 10 ^3/uL (0.4-5.4); Lymphocytes % (auto) 4.4 % (10.0-50.0); Mean Corpuscular Hemoglobin 25.2 pg (28.0-32.0); Mean Corpuscular Hgb Conc. 31.3 g/dL (32.0-36.0); Mean Corpuscular Volume 80.7 fL (80.0-100.0); Neutrophils # (auto) 11.2 10 ^3/uL (1.6-8.6); Neutrophils % (auto) 92.6 % (37.0-80.0); Red Blood Cells 3.59 10^6/uL (4.5-5.90); Red Cell Distribution Width 19.6 % (11.8-14.3); White Blood Cell 12.1 10^3/uL (4.4-10.8)
[2023-04-21 06:19] LABS: Alanine Aminotransferase 12 U/L (7-40); Albumin 3.8 g/dL (3.2-4.8); Alkaline Phosphatase 45 U/L (46-116); Anion Gap 7 (5-15); Aspartate Aminotransferase 23 U/L (13-40); BUN/Creatinine Ratio 72.2 (10.0-20.0); Bilirubin, Total 0.3 mg/dL (0.2-1.0); Blood Urea Nitrogen 13 mg/dL (9-23); Carbon Dioxide 32 mmol/L (20-30); Chloride 103 mmol/L (98-107); Glucose 155 mg/dL (74-106); Magnesium 1.6 mg/dL (1.6-2.6); Potassium 3.5 mmol/L (3.5-5.1); Sodium 142 mmol/L (136-145); Total Protein 7.8 g/dL (5.7-8.2)
[2023-04-21 07:27] LABS: CRP High Sensitivity 4.92 mg/dL (<1.0)
[2023-04-21 16:16] LABS: Base Excess 6.6 mmol/L (-2.0-2.0)
[2023-04-21 20:40] LABS: Base Excess 10.6 mmol/L (-2.0-2.0)
[2023-04-22] VITALS (13 sets, daily range): BP systolic 96–119; BP diastolic 57–78; PULSE 104–123; RESP 22–27; O2SAT 97–100
[2023-04-22 06:19] LABS: Basophils # (auto) 0 10 ^3/uL (0-0.2); Eosinophils # (auto) 0 10 ^3/uL (0-0.8); Lymphocytes # (auto) 1.5 10 ^3/uL (0.4-5.4); Monocytes # (auto) 1.1 10 ^3/uL (0-1.3); Monocytes % (auto) 7.2 % (0.0-12.0)
[2023-04-22 06:21] LABS: Basophils % (auto) 0.2 % (0.0-2.0); Eosinophils % (auto) 0.2 % (0.0-7.0); Hematocrit 29.5 % (41.0-53.0); Hemoglobin 9.3 g/dL (13.5-17.5); Lymphocytes % (auto) 10.1 % (10.0-50.0); Mean Corpuscular Hemoglobin 25.7 pg (28.0-32.0); Mean Corpuscular Hgb Conc. 31.6 g/dL (32.0-36.0); Mean Corpuscular Volume 81.2 fL (80.0-100.0); Neutrophils # (auto) 12.6 10 ^3/uL (1.6-8.6); Neutrophils % (auto) 82.3 % (37.0-80.0); Red Blood Cells 3.64 10^6/uL (4.5-5.90); Red Cell Distribution Width 19.8 % (11.8-14.3); White Blood Cell 15.3 10^3/uL (4.4-10.8)
[2023-04-22 06:34] LABS: Alanine Aminotransferase 12 U/L (7-40); Alkaline Phosphatase 40 U/L (46-116); Anion Gap 4 (5-15); Blood Urea Nitrogen 18 mg/dL (9-23); Calcium 9.5 mg/dL (8.5-10.1); Carbon Dioxide 37 mmol/L (20-30); Chloride 105 mmol/L (98-107); Glucose 120 mg/dL (74-106); Potassium 3.5 mmol/L (3.5-5.1); Sodium 146 mmol/L (136-145)
[2023-04-22 06:35] LABS: Albumin 3.8 g/dL (3.2-4.8); Aspartate Aminotransferase 20 U/L (13-40); Bilirubin, Total 0.3 mg/dL (0.2-1.0); Total Protein 7.1 g/dL (5.7-8.2)
[2023-04-22 09:13] LABS: Base Excess 13.1 mmol/L (-2.0-2.0)
[2023-04-22] MEDS ORDERED: LACTULOSE 20Gm/30ML SOLN PO PRN (19:15)
[2023-04-23] VITALS (14 sets, daily range): BP systolic 94–118; BP diastolic 53–65; PULSE 75–132; RESP 22–28; O2SAT 94–99
[2023-04-23 06:21] LABS: Basophils # (auto) 0 10 ^3/uL (0-0.2); Eosinophils # (auto) 0 10 ^3/uL (0-0.8); Lymphocytes # (auto) 0.8 10 ^3/uL (0.4-5.4); Monocytes # (auto) 0.6 10 ^3/uL (0-1.3)
[2023-04-23 06:24] LABS: Hematocrit 27.2 % (41.0-53.0); Hemoglobin 8.7 g/dL (13.5-17.5); Lymphocytes % (auto) 10.2 % (10.0-50.0); Mean Corpuscular Hemoglobin 25.9 pg (28.0-32.0); Mean Corpuscular Volume 80.9 fL (80.0-100.0); Neutrophils # (auto) 6.5 10 ^3/uL (1.6-8.6); Neutrophils % (auto) 81.8 % (37.0-80.0); Red Blood Cells 3.37 10^6/uL (4.5-5.90)
[2023-04-23 06:33] LABS: Red Cell Distribution Width 20.4 % (11.8-14.3)
[2023-04-23 06:46] LABS: Alanine Aminotransferase 11 U/L (7-40); Albumin 3.5 g/dL (3.2-4.8); Alkaline Phosphatase 34 U/L (46-116); Anion Gap 4 (5-15); Aspartate Aminotransferase 17 U/L (13-40); BUN/Creatinine Ratio 106.7 (10.0-20.0); Blood Urea Nitrogen 16 mg/dL (9-23); Calcium 9.3 mg/dL (8.5-10.1); Carbon Dioxide 38 mmol/L (20-30); Chloride 105 mmol/L (98-107); Glucose 135 mg/dL (74-106); Potassium 3.6 mmol/L (3.5-5.1); Sodium 147 mmol/L (136-145)
[2023-04-23 06:47] LABS: Bilirubin, Total 0.3 mg/dL (0.2-1.0); Total Protein 5.9 g/dL (5.7-8.2)
[2023-04-23 11:47] LABS: Base Excess 11.4 mmol/L (-2.0-2.0)
[2023-04-23] MEDS: ALBUTEROL SULF 2.5 MG/0.5ML(0.5%) NEB SOLN NEB PRN (13:09)
[2023-04-24] VITALS (14 sets, daily range): BP systolic 98–127; BP diastolic 56–77; PULSE 88–119; RESP 20–23; O2SAT 95–100
[2023-04-24 06:10] LABS: Basophils # (auto) 0 10 ^3/uL (0-0.2); Eosinophils # (auto) 0 10 ^3/uL (0-0.8); Neutrophils # (auto) 9.7 10 ^3/uL (1.6-8.6); White Blood Cell 10.8 10^3/uL (4.4-10.8)
[2023-04-24 06:14] LABS: Hematocrit 25.3 % (41.0-53.0); Lymphocytes # (auto) 0.7 10 ^3/uL (0.4-5.4); Lymphocytes % (auto) 6.1 % (10.0-50.0); Mean Corpuscular Hemoglobin 25.5 pg (28.0-32.0); Mean Corpuscular Hgb Conc. 31.5 g/dL (32.0-36.0); Mean Corpuscular Volume 81.1 fL (80.0-100.0); Monocytes # (auto) 0.4 10 ^3/uL (0-1.3); Monocytes % (auto) 3.5 % (0.0-12.0); Neutrophils % (auto) 90.4 % (37.0-80.0); Red Blood Cells 3.12 10^6/uL (4.5-5.90)
[2023-04-24 06:21] LABS: Red Cell Distribution Width 20.5 % (11.8-14.3)
[2023-04-24 06:27] LABS: Alanine Aminotransferase 11 U/L (7-40); Albumin 3.3 g/dL (3.2-4.8); Alkaline Phosphatase 31 U/L (46-116); Anion Gap 4 (5-15); Aspartate Aminotransferase 14 U/L (13-40); BUN/Creatinine Ratio 93.3 (10.0-20.0); Blood Urea Nitrogen 14 mg/dL (9-23); Carbon Dioxide 37 mmol/L (20-30); Chloride 104 mmol/L (98-107); Glucose 139 mg/dL (74-106); Magnesium 1.8 mg/dL (1.6-2.6); Potassium 3.8 mmol/L (3.5-5.1); Sodium 145 mmol/L (136-145)
[2023-04-24 06:28] LABS: Bilirubin, Total 0.3 mg/dL (0.2-1.0); Total Protein 6.7 g/dL (5.7-8.2)
[2023-04-24 08:20] LABS: Base Excess 12.9 mmol/L (-2.0-2.0)
[2023-04-24] MEDS: cefTRIAXone 1GM/50ML D5W 50 ML IV SCH (17:55)
[2023-04-25] VITALS (29 sets, daily range): BP systolic 95–167; BP diastolic 51–95; PULSE 88–142; RESP 14–29; TEMP 98.6; O2SAT 90–99
[2023-04-25 06:47] LABS: Basophils # (auto) 0 10 ^3/uL (0-0.2); Lymphocytes # (auto) 1.5 10 ^3/uL (0.4-5.4); Neutrophils # (auto) 7.6 10 ^3/uL (1.6-8.6); Red Blood Cells 3.21 10^6/uL (4.5-5.90)
[2023-04-25 06:50] LABS: Basophils % (auto) 0.2 % (0.0-2.0); Eosinophils # (auto) 0.2 10 ^3/uL (0-0.8); Eosinophils % (auto) 1.7 % (0.0-7.0); Hematocrit 26.4 % (41.0-53.0); Hemoglobin 8.2 g/dL (13.5-17.5); Lymphocytes % (auto) 14.9 % (10.0-50.0); Mean Corpuscular Hemoglobin 25.4 pg (28.0-32.0); Mean Corpuscular Hgb Conc. 30.9 g/dL (32.0-36.0); Mean Corpuscular Volume 82.3 fL (80.0-100.0); Monocytes # (auto) 0.9 10 ^3/uL (0-1.3); Monocytes % (auto) 8.8 % (0.0-12.0); Neutrophils % (auto) 74.4 % (37.0-80.0); Red Cell Distribution Width 20.4 % (11.8-14.3); White Blood Cell 10.2 10^3/uL (4.4-10.8)
[2023-04-25 07:15] LABS: Alanine Aminotransferase 14 U/L (7-40); Albumin 3.4 g/dL (3.2-4.8); Alkaline Phosphatase 31 U/L (46-116); Anion Gap 7 (5-15); Aspartate Aminotransferase 16 U/L (13-40); BUN/Creatinine Ratio 73.3 (10.0-20.0); Bilirubin, Total 0.3 mg/dL (0.2-1.0); Blood Urea Nitrogen 11 mg/dL (9-23); Calcium 9.2 mg/dL (8.5-10.1); Carbon Dioxide 35 mmol/L (20-30); Chloride 101 mmol/L (98-107); Glucose 103 mg/dL (74-106); Potassium 3.6 mmol/L (3.5-5.1); Sodium 143 mmol/L (136-145); Total Protein 6.1 g/dL (5.7-8.2)
[2023-04-25 07:33] LABS: Base Excess 10.6 mmol/L (-2.0-2.0)
[2023-04-25 07:41] LABS: Magnesium 1.8 mg/dL (1.6-2.6)
[2023-04-25] MEDS: cefTRIAXone 1GM/50ML D5W 50 ML IV SCH (09:59)
[2023-04-25 13:54] LABS: Base Excess 10.4 mmol/L (-2.0-2.0)
[2023-04-25] MEDS ORDERED: CEFEPIME 1GM/ 50ML 50 ML IV ONE (18:30)
[2023-04-25] MEDS: CEFEPIME 1GM/ 50ML 50 ML IV SCH (19:09)
[2023-04-26] VITALS (87 sets, daily range): BP systolic 87–129; BP diastolic 53–89; PULSE 68–115; RESP 15–51; TEMP 98.2–98.6; O2SAT 88–99
[2023-04-26] MEDS: ACETAMINOPHEN 325 MG TAB PO PRN (04:23)
[2023-04-26 06:08] LABS: Basophils # (auto) 0 10 ^3/uL (0-0.2); Basophils % (auto) 0.1 % (0.0-2.0); Red Cell Distribution Width 21.1 % (11.8-14.3)
[2023-04-26 06:11] LABS: Eosinophils # (auto) 0.3 10 ^3/uL (0-0.8); Eosinophils % (auto) 2.3 % (0.0-7.0); Lymphocytes # (auto) 1.4 10 ^3/uL (0.4-5.4); Lymphocytes % (auto) 11.8 % (10.0-50.0); Mean Corpuscular Hemoglobin 25.3 pg (28.0-32.0); Mean Corpuscular Volume 84.1 fL (80.0-100.0); Monocytes # (auto) 0.8 10 ^3/uL (0-1.3); Monocytes % (auto) 6.6 % (0.0-12.0); Neutrophils # (auto) 9.4 10 ^3/uL (1.6-8.6); Neutrophils % (auto) 79.2 % (37.0-80.0); Red Blood Cells 3.56 10^6/uL (4.5-5.90); White Blood Cell 11.9 10^3/uL (4.4-10.8)
[2023-04-26 06:29] LABS: Alanine Aminotransferase 13 U/L (7-40); Albumin 3.6 g/dL (3.2-4.8); Alkaline Phosphatase 32 U/L (46-116); Anion Gap 7 (5-15); Aspartate Aminotransferase 23 U/L (13-40); Bilirubin, Total 0.5 mg/dL (0.2-1.0); Blood Urea Nitrogen 9 mg/dL (9-23); Calcium 8.9 mg/dL (8.7-10.4); Carbon Dioxide 30 mmol/L (20-30); Chloride 101 mmol/L (98-107); Glucose 95 mg/dL (74-106); Potassium 4.2 mmol/L (3.5-5.1)
[2023-04-26 06:30] LABS: Sodium 138 mmol/L (136-145)
[2023-04-26 08:49] LABS: Base Excess 7.2 mmol/L (-2.0-2.0)
[2023-04-26] MEDS ORDERED: ALBUTEROL SULF 2.5 MG/0.5ML(0.5%) NEB SOLN NEB PRN (11:15)
[2023-04-26] MEDS: IPRATROPIUM BROM 0.5 MG/2.5ML INH SOL NEB SCH (14:17)
[2023-04-26] MEDS: ALBUTEROL SULF 2.5 MG/0.5ML(0.5%) NEB SOLN NEB SCH (14:18)
[2023-04-27] VITALS (39 sets, daily range): BP systolic 84–144; BP diastolic 47–78; PULSE 91–143; RESP 15–27; TEMP 97.5–99; O2SAT 94–100
[2023-04-27 06:48] LABS: Eosinophils # (auto) 0.2 10 ^3/uL (0-0.8); Hemoglobin 9.4 g/dL (13.5-17.5); Lymphocytes # (auto) 1.5 10 ^3/uL (0.4-5.4); Mean Corpuscular Volume 82.9 fL (80.0-100.0)
[2023-04-27 06:50] LABS: Basophils # (auto) 0.1 10 ^3/uL (0-0.2); Basophils % (auto) 0.5 % (0.0-2.0); Eosinophils % (auto) 2.3 % (0.0-7.0); Hematocrit 30.6 % (41.0-53.0); Lymphocytes % (auto) 15.6 % (10.0-50.0); Mean Corpuscular Hemoglobin 25.5 pg (28.0-32.0); Mean Corpuscular Hgb Conc. 30.8 g/dL (32.0-36.0); Monocytes # (auto) 0.5 10 ^3/uL (0-1.3); Monocytes % (auto) 5.6 % (0.0-12.0); Neutrophils # (auto) 7.5 10 ^3/uL (1.6-8.6); Nucleated Red Blood Cells % 0.1 %; Red Blood Cells 3.69 10^6/uL (4.5-5.90); White Blood Cell 9.8 10^3/uL (4.4-10.8)
[2023-04-27 06:56] LABS: Red Cell Distribution Width 20.2 % (11.8-14.3)
[2023-04-27 07:09] LABS: INR 1.21 (0.9-1.15); Partial Thromboplastin Time 31.8 SEC (24.5-34.5); Prothrombin Time 12.5 sec (9.3-11.8)
[2023-04-27 08:38] LABS: Base Excess 1.5 mmol/L (-2.0-2.0)
[2023-04-27 09:21] LABS: Alanine Aminotransferase 15 U/L (7-40); Albumin 3.7 g/dL (3.2-4.8); Alkaline Phosphatase 35 U/L (46-116); Anion Gap 11 (5-15); Aspartate Aminotransferase 21 U/L (13-40); BUN/Creatinine Ratio 93.3 (10.0-20.0); Blood Urea Nitrogen 14 mg/dL (9-23); Calcium 9.1 mg/dL (8.7-10.4); Carbon Dioxide 26 mmol/L (20-30); Chloride 99 mmol/L (98-107); Glucose 91 mg/dL (74-106); Magnesium 1.7 mg/dL (1.6-2.6); Potassium 4.7 mmol/L (3.5-5.1); Sodium 136 mmol/L (136-145)
[2023-04-27 09:22] LABS: Bilirubin, Total 0.8 mg/dL (0.2-1.0); Total Protein 6.8 g/dL (5.7-8.2)
[2023-04-27] MEDS ORDERED: LIDOCAINE 2% JELLY 11ml (GLYDO) ONE (13:38)
[2023-04-27] MEDS ORDERED: LIDOCAINE 2%HCL (LOCAL ANESTH.) INJ 20ML MDV ONE (13:38)
[2023-04-27] MEDS ORDERED: GLYCOPYRROLATE 0.2 MG/ML 1ML VIAL ONE (13:38)
[2023-04-27] MEDS ORDERED: fentaNYL CITRATE 100 MCG/2 ML VL ONE (13:39)
[2023-04-27] MEDS ORDERED: MIDAZOLAM HCL 5 MG/ML-1ML VIAL ONE (13:39)
[2023-04-27] MEDS ORDERED: EPINEPHrine HCL 1 MG/1 ML AMP ONE (13:40)
[2023-04-27] MEDS: SPIRONOLACTONE 25 MG TAB PO SCH (17:00)
[2023-04-27] MEDS: FUROSEMIDE 40 MG/4 ML VIAL IV SCH (18:07)
[2023-04-28] VITALS (43 sets, daily range): BP systolic 86–107; BP diastolic 50–71; PULSE 113–132; RESP 14–26; TEMP 97.9–98.7; O2SAT 90–100
[2023-04-28 06:04] LABS: Basophils # (auto) 0 10 ^3/uL (0-0.2); Basophils % (auto) 0.3 % (0.0-2.0); Eosinophils # (auto) 0.2 10 ^3/uL (0-0.8); Eosinophils % (auto) 2.3 % (0.0-7.0); Hematocrit 32.3 % (41.0-53.0); Hemoglobin 10.2 g/dL (13.5-17.5); Lymphocytes # (auto) 1.3 10 ^3/uL (0.4-5.4); Lymphocytes % (auto) 12.9 % (10.0-50.0); Mean Corpuscular Hemoglobin 25.9 pg (28.0-32.0); Mean Corpuscular Hgb Conc. 31.7 g/dL (32.0-36.0); Mean Corpuscular Volume 81.6 fL (80.0-100.0); Monocytes # (auto) 0.7 10 ^3/uL (0-1.3); Monocytes % (auto) 6.7 % (0.0-12.0); Neutrophils # (auto) 8.1 10 ^3/uL (1.6-8.6); Neutrophils % (auto) 77.8 % (37.0-80.0); Red Blood Cells 3.96 10^6/uL (4.5-5.90); White Blood Cell 10.4 10^3/uL (4.4-10.8)
[2023-04-28 06:16] LABS: Alanine Aminotransferase 14 U/L (7-40); Alkaline Phosphatase 38 U/L (46-116); Anion Gap 9 (5-15); Aspartate Aminotransferase 25 U/L (13-40); BUN/Creatinine Ratio 73.3 (10.0-20.0); Blood Urea Nitrogen 11 mg/dL (9-23); Calcium 9.5 mg/dL (8.7-10.4); Carbon Dioxide 29 mmol/L (20-30); Chloride 95 mmol/L (98-107); Glucose 98 mg/dL (74-106); Magnesium 1.7 mg/dL (1.6-2.6); Potassium 3.8 mmol/L (3.5-5.1); Sodium 133 mmol/L (136-145)
[2023-04-28 06:17] LABS: Bilirubin, Total 0.8 mg/dL (0.2-1.0); Total Protein 7.7 g/dL (5.7-8.2)
[2023-04-28 07:00] LABS: Base Excess 7.2 mmol/L (-2.0-2.0)
[2023-04-28] MEDS: ONDANSETRON HCL 4 MG/2 ML VIAL IV PRN (07:57)
[2023-04-29] VITALS (42 sets, daily range): BP systolic 80–106; BP diastolic 43–71; PULSE 106–132; RESP 14–36; TEMP 97.2–98.4; O2SAT 93–100
[2023-04-29 05:10] LABS: Basophils # (auto) 0 10 ^3/uL (0-0.2); Basophils % (auto) 0.4 % (0.0-2.0); Eosinophils # (auto) 0.3 10 ^3/uL (0-0.8); Eosinophils % (auto) 2.6 % (0.0-7.0); Hematocrit 33.4 % (41.0-53.0); Hemoglobin 10.5 g/dL (13.5-17.5); Lymphocytes # (auto) 1.3 10 ^3/uL (0.4-5.4); Lymphocytes % (auto) 10.4 % (10.0-50.0); Mean Corpuscular Hemoglobin 25.3 pg (28.0-32.0); Mean Corpuscular Hgb Conc. 31.3 g/dL (32.0-36.0); Mean Corpuscular Volume 80.8 fL (80.0-100.0); Monocytes # (auto) 0.9 10 ^3/uL (0-1.3); Monocytes % (auto) 7.3 % (0.0-12.0); Neutrophils # (auto) 9.7 10 ^3/uL (1.6-8.6); Neutrophils % (auto) 79.3 % (37.0-80.0); Red Blood Cells 4.14 10^6/uL (4.5-5.90); White Blood Cell 12.2 10^3/uL (4.4-10.8)
[2023-04-29 05:11] LABS: Red Cell Distribution Width 21.1 % (11.8-14.3)
[2023-04-29 05:26] LABS: Alanine Aminotransferase 15 U/L (7-40); Albumin 4.2 g/dL (3.2-4.8); Alkaline Phosphatase 40 U/L (46-116); Anion Gap 9 (5-15); Aspartate Aminotransferase 21 U/L (13-40); Bilirubin, Total 0.8 mg/dL (0.2-1.0); Blood Urea Nitrogen 20 mg/dL (9-23); Calcium 9.5 mg/dL (8.7-10.4); Carbon Dioxide 30 mmol/L (20-30); Chloride 95 mmol/L (98-107); Glucose 120 mg/dL (74-106); Magnesium 1.7 mg/dL (1.6-2.6); Potassium 3.8 mmol/L (3.5-5.1); Sodium 134 mmol/L (136-145); Total Protein 7.8 g/dL (5.7-8.2)
[2023-04-29 07:26] LABS: Base Excess 3.5 mmol/L (-2.0-2.0)
[2023-04-29] MEDS: LEVALBUTEROL HCL 1.25 MG/3 ML NEB NEB SCH (10:16)
[2023-04-29] MEDS: IPRATROPIUM BROM 0.5 MG/2.5ML INH SOL NEB SCH (10:16)
[2023-04-29] MEDS: DOCUSATE ORAL LIQUID 100 MG/10 ML UD GT PRN (18:04)
[2023-04-30] VITALS (33 sets, daily range): BP systolic 81–109; BP diastolic 46–65; PULSE 103–116; RESP 13–23; TEMP 97.9–98.5; O2SAT 18–100
[2023-04-30 06:04] LABS: Eosinophils # (auto) 0.3 10 ^3/uL (0-0.8); Mean Corpuscular Hgb Conc. 31.3 g/dL (32.0-36.0); Neutrophils # (auto) 10.2 10 ^3/uL (1.6-8.6)
[2023-04-30 06:06] LABS: Basophils # (auto) 0.1 10 ^3/uL (0-0.2); Basophils % (auto) 0.5 % (0.0-2.0); Eosinophils % (auto) 2.3 % (0.0-7.0); Hematocrit 33.4 % (41.0-53.0); Hemoglobin 10.5 g/dL (13.5-17.5); Lymphocytes # (auto) 1.2 10 ^3/uL (0.4-5.4); Lymphocytes % (auto) 9.3 % (10.0-50.0); Mean Corpuscular Hemoglobin 25.9 pg (28.0-32.0); Mean Corpuscular Volume 82.9 fL (80.0-100.0); Monocytes % (auto) 7.6 % (0.0-12.0); Neutrophils % (auto) 80.3 % (37.0-80.0); Nucleated Red Blood Cells % 0.1 %; Red Blood Cells 4.03 10^6/uL (4.5-5.90); White Blood Cell 12.7 10^3/uL (4.4-10.8)
[2023-04-30 06:10] LABS: Red Cell Distribution Width 21.4 % (11.8-14.3)
[2023-04-30 06:31] LABS: Alanine Aminotransferase 16 U/L (7-40); Albumin 4.1 g/dL (3.2-4.8); Alkaline Phosphatase 38 U/L (46-116); Anion Gap 9 (5-15); Aspartate Aminotransferase 23 U/L (13-40); BUN/Creatinine Ratio 133.3 (10.0-20.0); Blood Urea Nitrogen 20 mg/dL (9-23); Calcium 9.5 mg/dL (8.7-10.4); Carbon Dioxide 28 mmol/L (20-30); Chloride 96 mmol/L (98-107); Glucose 89 mg/dL (74-106); Magnesium 1.9 mg/dL (1.6-2.6); Potassium 3.2 mmol/L (3.5-5.1); Sodium 133 mmol/L (136-145)
[2023-04-30 06:32] LABS: Total Protein 7.7 g/dL (5.7-8.2)
[2023-04-30] MEDS ORDERED: POTASSIUM CHL 20MEQ/100ML 100 ML IV SCH (06:45)
[2023-04-30] MEDS: POTASSIUM CHLORIDE 40 MEQ, LIDOCAINE 1% (LOCAL ANESTH.) 4 ML in SODIUM CHL 0.9% 250 ML IV ONE (08:15)
[2023-05-01] VITALS (22 sets, daily range): BP systolic 84–105; BP diastolic 46–61; PULSE 101–113; RESP 18–23; TEMP 36.8; O2SAT 91–99
[2023-05-01 06:36] LABS: Basophils # (auto) 0.1 10 ^3/uL (0-0.2); Eosinophils # (auto) 0.3 10 ^3/uL (0-0.8); Hemoglobin 10.2 g/dL (13.5-17.5); Monocytes # (auto) 0.9 10 ^3/uL (0-1.3); Nucleated Red Blood Cells % 0.1 %
[2023-05-01 06:40] LABS: Basophils % (auto) 0.5 % (0.0-2.0); Hematocrit 33.1 % (41.0-53.0); Lymphocytes # (auto) 1.5 10 ^3/uL (0.4-5.4); Lymphocytes % (auto) 16.1 % (10.0-50.0); Mean Corpuscular Hemoglobin 25.8 pg (28.0-32.0); Mean Corpuscular Hgb Conc. 30.7 g/dL (32.0-36.0); Monocytes % (auto) 10.1 % (0.0-12.0); Neutrophils # (auto) 6.6 10 ^3/uL (1.6-8.6); Neutrophils % (auto) 70.3 % (37.0-80.0); Red Blood Cells 3.95 10^6/uL (4.5-5.90); White Blood Cell 9.4 10^3/uL (4.4-10.8)
[2023-05-01 07:04] LABS: Red Cell Distribution Width 22.1 % (11.8-14.3)
[2023-05-01 08:23] LABS: Large Platelets FEW
[2023-05-01 08:24] LABS: Anisocytosis Moderate; Hypochromia Slight; Platelet Estimate Adequate; Tear Drop Cells FEW
[2023-05-01] MEDS ORDERED: FUR20T GT (09:33)
[2023-05-01 09:39] LABS: Alanine Aminotransferase 12 U/L (7-40); Albumin 4.1 g/dL (3.2-4.8); Alkaline Phosphatase 38 U/L (46-116); Anion Gap 8 (5-15); Aspartate Aminotransferase 32 U/L (13-40); BUN/Creatinine Ratio 93.3 (10.0-20.0); Blood Urea Nitrogen 14 mg/dL (9-23); Calcium 9.7 mg/dL (8.5-10.1); Carbon Dioxide 28 mmol/L (20-30); Chloride 101 mmol/L (98-107); Glucose 112 mg/dL (74-106); Potassium 4.1 mmol/L (3.5-5.1); Sodium 137 mmol/L (136-145)
[2023-05-01 09:40] LABS: Bilirubin, Total 0.8 mg/dL (0.2-1.0); Total Protein 7.1 g/dL (5.7-8.2)
[2023-05-01] MEDS ORDERED: LORA2TAB89 PO (09:43)
[2023-05-01 10:03] LABS: Magnesium 1.9 mg/dL (1.6-2.6)
== END 2023-05-01 18:48 | disposition home health service (06) | DRG 720 ==
LOC: EDBD 22:17 → ER 22:17 → TELE 23:42 → DOU IN ICU 04-25 21:01
PROVIDERS: ADMIT Internal Medicine Pulmonary Disease; ATTEND Internal Medicine Pulmonary Disease
PROC: 5A1955Z Respiratory Ventilation, Greater than 96 Consecutive Hours (ICD-10-PCS; principal; 2023-04-20)
PROC: 0B9D8ZX Drainage of Right Middle Lung Lobe, Via Natural or Artificial Opening Endoscopic, Diagnostic (ICD-10-PCS; 2023-04-27)
DX: A41.9 Sepsis, unspecified organism (principal); J96.02 Acute respiratory failure with hypercapnia; I50.23 Acute on chronic systolic (congestive) heart failure; J47.0 Bronchiectasis with acute lower respiratory infection; J15.9 Unspecified bacterial pneumonia; J15.69 Pneumonia due to other Gram-negative bacteria; I42.9 Cardiomyopathy, unspecified; G71.01 Duchenne or Becker muscular dystrophy; J90 Pleural effusion, not elsewhere classified; E03.9 Hypothyroidism, unspecified; I11.0 Hypertensive heart disease with heart failure; G35 Multiple sclerosis; M41.9 Scoliosis, unspecified; J96.22 Acute and chronic respiratory failure with hypercapnia; Z99.11 Dependence on respirator [ventilator] status; Z93.0 Tracheostomy status; Z82.49 Family history of ischemic heart disease and other diseases of the circulatory system; Z88.1 Allergy status to other antibiotic agents; Z83.3 Family history of diabetes mellitus; Z74.01 Bed confinement status; J96.21 Acute and chronic respiratory failure with hypoxia
CPT/HCPCS: 36415; 36600; 71045; 71250; 76604; 80048; 80053; 81001; 82805; 83605; 83735; 83880; 84439; 84443; 85025; 85610; 85730; 86141; 87040; 87070; 87077; 87081; 87186; 87205; 93005; 93306; 94002; 94003; 94640; 96365; 97163; G0378; J0171; J0714; J2001; J2250; J2405; J3490; J7060

== ENCOUNTER 2023-06-24 15:07 | Inpatient (IN) | payer MEDICAID ==
[2023-06-24] VITALS (7 sets, daily range): BP systolic 101–126; BP diastolic 68–85; PULSE 115–150; RESP 17–38; O2SAT 87–94
[~2023-06-24] VITALS: Ht 167.6 cm; Wt 60.2 kg
[~2023-06-24 15:07] MED LIST changes: +FUR20T GT
[2023-06-24] MEDS: IPRATROPIUM BROM 0.5 MG/2.5ML INH SOL HHN ONE (15:49)
[2023-06-24] MEDS: ALBUTEROL SULF 2.5 MG/0.5ML(0.5%) NEB SOLN HHN ONE (15:49)
[2023-06-24] MEDS: SODIUM CHLORIDE 0.9% 1,000 ML IV ONE (16:20)
[2023-06-24] MEDS: levoFLOXacin 750MG 150 ML IV ONE (16:41)
[2023-06-24] MEDS: PIPERACILLIN-TAZOB 3.375GM 100 ML IV ONE (16:41)
[2023-06-24] MEDS: CLINDAMYCIN 900MG IV 50 ML IV ONE (16:43)
[2023-06-24 17:09] LABS: Basophils # (auto) 0 10 ^3/uL (0-0.2); Basophils % (auto) 0.3 % (0.0-2.0); Eosinophils # (auto) 0 10 ^3/uL (0-0.8); Eosinophils % (auto) 0.1 % (0.0-7.0); Hematocrit 31.6 % (41.0-53.0); Hemoglobin 9.7 g/dL (13.5-17.5); Lymphocytes # (auto) 0.6 10 ^3/uL (0.4-5.4); Lymphocytes % (auto) 3.1 % (10.0-50.0); Mean Corpuscular Hemoglobin 23.9 pg (28.0-32.0); Mean Corpuscular Hgb Conc. 30.5 g/dL (32.0-36.0); Mean Corpuscular Volume 78.2 fL (80.0-100.0); Monocytes # (auto) 0.9 10 ^3/uL (0-1.3); Neutrophils # (auto) 16.1 10 ^3/uL (1.6-8.6); Neutrophils % (auto) 91.5 % (37.0-80.0); Red Blood Cells 4.05 10^6/uL (4.5-5.90); Red Cell Distribution Width 19.6 % (11.8-14.3); White Blood Cell 17.6 10^3/uL (4.4-10.8)
[2023-06-24 17:23] LABS: Alanine Aminotransferase 11 U/L (7-40); Alkaline Phosphatase 57 U/L (46-116); Anion Gap 10 (5-15); BUN/Creatinine Ratio 53.3 (10.0-20.0); Blood Urea Nitrogen 8 mg/dL (9-23); Calcium 9.9 mg/dL (8.7-10.4); Carbon Dioxide 31 mmol/L (20-30); Chloride 92 mmol/L (98-107); Glucose 86 mg/dL (74-106); Potassium 4.2 mmol/L (3.5-5.1); Sodium 133 mmol/L (136-145)
[2023-06-24 17:24] LABS: Albumin 3.9 g/dL (3.2-4.8); Aspartate Aminotransferase 18 U/L (13-40); Bilirubin, Total 0.9 mg/dL (0.2-1.0)
[2023-06-24 17:25] LABS: Total Protein 7.9 g/dL (5.7-8.2)
[2023-06-24] MEDS: diphenhdrAMINE HCL 50 MG/1 ML VL IV ONE ×2 (18:06→22:11)
[2023-06-24] MEDS: diphenhdrAMINE HCL 50 MG/1 ML VL ONE (18:07)
[2023-06-24] MEDS: FUROSEMIDE 20 MG/2 ML VIAL IV ONE (18:34)
[2023-06-24] MEDS: ALBUTEROL SULF 2.5 MG/0.5ML(0.5%) NEB SOLN NEB ONE (18:40)
[2023-06-24] MEDS: ACETYLCYSTEINE 10 %(100MG/ML) SOL 4ML NEB ONE (18:40)
[2023-06-24] MEDS ORDERED: DOCUSATE SOD 100 MG CAP PO PRN (18:45)
[2023-06-24] MEDS ORDERED: NITROGLYCERIN 0.4 MG SL TAB SL PRN (18:45)
[2023-06-24] MEDS ORDERED: HYDROcodone-ACET 5/325MG TAB PO PRN (18:45)
[2023-06-24] MEDS ORDERED: HYDR1SYP PO (18:47)
[2023-06-24 18:58] LABS: Base Excess 1.9 mmol/L (-2.0-2.0)
[2023-06-24] MEDS: SODIUM CHLORIDE 0.9% 1,000 ML IV SCH (19:50)
[2023-06-24] MEDS: TEMAZEPAM 15 MG CAP PO PRN (20:48)
[2023-06-24] MEDS: IOHEXOL 350 MG/ML 100ML IJ ONE (21:22)
[2023-06-24] MEDS ORDERED: ALBUTEROL SULF 2.5 MG/0.5ML(0.5%) NEB SOLN NEB SCH (22:00)
[2023-06-24] MEDS: IPRATROPIUM BROM 0.5 MG/2.5ML INH SOL NEB SCH (22:00)
[2023-06-24] MEDS: ACETYLCYSTEINE 10 %(100MG/ML) SOL 4ML NEB SCH (22:00)
[2023-06-24] MEDS: LEVALBUTEROL HCL 1.25 MG/3 ML NEB NEB SCH (22:00)
[2023-06-24] MEDS ORDERED: FAMOTIDINE 20 MG TAB GT SCH (22:00)
[2023-06-24] MEDS: METOPROLOL TARTRATE 1MG/1ML-5ML VIAL IV ONE (22:28)
[2023-06-24 23:17] LABS: Base Excess -0.9 mmol/L (-2.0-2.0)
[2023-06-25] VITALS (13 sets, daily range): BP systolic 88–119; BP diastolic 46–67; PULSE 100–143; RESP 14–34; O2SAT 89–100
[2023-06-25 00:49] LABS: Base Excess -0.4 mmol/L (-2.0-2.0)
[2023-06-25] MEDS: SODIUM CHLORIDE 0.9% 500 ML IV ONE (01:31)
[2023-06-25] MEDS: ALBUMIN 5% 250 ML IV ONE (02:42)
[2023-06-25 04:31] LABS: Urine Bacteria None Seen /hpf (None Seen)
[2023-06-25 05:24] LABS: Urine Blood Negative /uL (Negative); Urine Clarity Clear (Clear); Urine Color Light-Yellow (Yellow); Urine Hyaline Cast FEW /lpf (0 - 2); Urine Mucus FEW (None Seen); Urine Protein, UAD TRACE (Negative); Urine Specific Gravity 1.011 (1.001-1.035); Urine Urobilinogen Normal (Negative); Urine WBC 1 /hpf (0 - 3); Urine pH 5.5 (5.0-9.0)
[2023-06-25 06:13] LABS: Basophils # (auto) 0 10 ^3/uL (0-0.2); Basophils % (auto) 0.1 % (0.0-2.0); Eosinophils # (auto) 0 10 ^3/uL (0-0.8); Hemoglobin 7.3 g/dL (13.5-17.5); Lymphocytes # (auto) 0.7 10 ^3/uL (0.4-5.4); Mean Corpuscular Hgb Conc. 30.2 g/dL (32.0-36.0); Neutrophils # (auto) 10.6 10 ^3/uL (1.6-8.6); Red Blood Cells 3.07 10^6/uL (4.5-5.90); White Blood Cell 11.7 10^3/uL (4.4-10.8)
[2023-06-25 06:15] LABS: Hematocrit 24.2 % (41.0-53.0); Lymphocytes % (auto) 5.8 % (10.0-50.0); Mean Corpuscular Hemoglobin 23.8 pg (28.0-32.0); Mean Corpuscular Volume 78.6 fL (80.0-100.0); Monocytes # (auto) 0.5 10 ^3/uL (0-1.3); Neutrophils % (auto) 90.1 % (37.0-80.0)
[2023-06-25 06:22] LABS: Albumin 3.4 g/dL (3.2-4.8); Alkaline Phosphatase 40 U/L (46-116); Anion Gap 9 (5-15); Aspartate Aminotransferase 22 U/L (13-40); Blood Urea Nitrogen 9 mg/dL (9-23); Calcium 8.5 mg/dL (8.5-10.1); Carbon Dioxide 27 mmol/L (20-30); Chloride 104 mmol/L (98-107); Glucose 74 mg/dL (74-106); Potassium 3.1 mmol/L (3.5-5.1); Sodium 140 mmol/L (136-145)
[2023-06-25 06:23] LABS: Bilirubin, Total 0.4 mg/dL (0.2-1.0); Total Protein 6.7 g/dL (5.7-8.2)
[2023-06-25 06:34] LABS: Alanine Aminotransferase < 9 U/L (7-40)
[2023-06-25] MEDS: LEVOTHYROXINE SODIUM 25 MCG TAB GT SCH (08:25)
[2023-06-25] MEDS: METOPROLOL TARTRATE 25 MG TAB GT SCH (10:00)
[2023-06-25] MEDS: FUROSEMIDE 20 MG TAB GT SCH (10:00)
[2023-06-25] MEDS: POLYETHYLENE GLYCOL 17 GM PWDR GT SCH (10:28)
[2023-06-25] MEDS: levoFLOXacin 500MG 100 ML IV SCH (10:28)
[2023-06-25] MEDS: POTASSIUM CHL 20MEQ/100ML 100 ML IV SCH (12:08)
[2023-06-25 12:42] LABS: Base Excess -2.1 mmol/L (-2.0-2.0)
[2023-06-25] MEDS: PANTOPRAZOLE 40 MG TAB PO ONE (14:15)
[2023-06-25] MEDS ORDERED: TPN PER PHARMACY 0 ML IV SCH (19:00)
[2023-06-25] MEDS: diphenhdrAMINE HCL 50 MG/1 ML VL IV ONE (20:15)
[2023-06-25] MEDS: AMINO ACID INFUSION IN D10W 1,000 ML IV SCH (22:19)
[2023-06-25] MEDS: MAGNESIUM SULFATE 1GM/100ML 100 ML IV ONE (23:19)
[2023-06-26] VITALS (14 sets, daily range): BP systolic 94–123; BP diastolic 48–72; PULSE 67–125; RESP 14–28; O2SAT 85–100
[2023-06-26] MEDS: ACCU-CHEK COMFORT CURVE STRIP VI SCH
[2023-06-26] MEDS ORDERED: DEXTROSE (50%) 50ML SYRG IV SCH
[2023-06-26] MEDS: InsuLIN REG 1unit/0.01ml Soln (100units/ml) SC SCH
[2023-06-26] MEDS: hydrOXYzine HCL 10 MG TAB PO PRN (02:21)
[2023-06-26 05:34] LABS: Alanine Aminotransferase 12 U/L (7-40); Albumin 3.4 g/dL (3.2-4.8); Alkaline Phosphatase 38 U/L (46-116); Anion Gap 10 (5-15); Aspartate Aminotransferase 26 U/L (13-40); BUN/Creatinine Ratio 41.2 (10.0-20.0); Blood Urea Nitrogen 7 mg/dL (9-23); Carbon Dioxide 26 mmol/L (20-30); Chloride 104 mmol/L (98-107); Glucose 110 mg/dL (74-106); Magnesium 1.7 mg/dL (1.6-2.6); Sodium 140 mmol/L (136-145)
[2023-06-26 05:35] LABS: Bilirubin, Total 0.4 mg/dL (0.2-1.0); Phosphorus 1.8 mg/dL (2.4-5.1); Total Protein 6.7 g/dL (5.7-8.2)
[2023-06-26 05:37] LABS: Potassium 2.5 mmol/L (3.5-5.1)
[2023-06-26 05:48] LABS: Triglycerides 63 mg/dL (< 150)
[2023-06-26 06:23] LABS: Basophils # (auto) 0 10 ^3/uL (0-0.2); Basophils % (auto) 0.2 % (0.0-2.0); Eosinophils # (auto) 0 10 ^3/uL (0-0.8); Hematocrit 25.8 % (41.0-53.0); Hemoglobin 7.8 g/dL (13.5-17.5); Lymphocytes # (auto) 0.7 10 ^3/uL (0.4-5.4); Lymphocytes % (auto) 6.6 % (10.0-50.0); Mean Corpuscular Hemoglobin 23.6 pg (28.0-32.0); Mean Corpuscular Hgb Conc. 30.2 g/dL (32.0-36.0); Mean Corpuscular Volume 78.1 fL (80.0-100.0); Monocytes # (auto) 0.9 10 ^3/uL (0-1.3); Monocytes % (auto) 8.5 % (0.0-12.0); Neutrophils # (auto) 9.2 10 ^3/uL (1.6-8.6); Neutrophils % (auto) 84.7 % (37.0-80.0); Nucleated Red Blood Cells % 0.1 %; Red Blood Cells 3.31 10^6/uL (4.5-5.90); Red Cell Distribution Width 19.8 % (11.8-14.3); White Blood Cell 10.9 10^3/uL (4.4-10.8)
[2023-06-26] MEDS: ONDANSETRON HCL 4 MG/2 ML VIAL IV PRN (06:25)
[2023-06-26] MEDS: POTASSIUM CHL 20MEQ/100ML 100 ML IV SCH ×3 (06:26→21:30)
[2023-06-26 06:44] LABS: COVID19 ANTIGEN SOFIA FIA POSITIVE (NEGATIVE); Rapid Influenza A Negative (Negative); Rapid Influenza B Negative (Negative)
[2023-06-26] MEDS: PANTOPRAZOLE 40 MG TAB PO SCH (11:17)
[2023-06-26] MEDS: METOPROLOL TARTRATE 25 MG TAB GT SCH (11:18)
[2023-06-26] MEDS: DexAMETHasone SOD PHOS 10MG/1ML VIAL INJ IV ONE (13:00)
[2023-06-26] MEDS: POTASSIUM PHOSPHATE 44 MEQ in D5W 5% 250 ML IV ONE (14:39)
[2023-06-26] MEDS: PPN PER PHARMACY IV NR (20:00)
[2023-06-26] MEDS: MAGNESIUM SULFATE 1GM/100ML 100 ML IV ONE (22:38)
[2023-06-27] VITALS (15 sets, daily range): BP systolic 97–129; BP diastolic 54–82; PULSE 102–133; RESP 18–30; O2SAT 85–99
[2023-06-27 05:30] LABS: Alanine Aminotransferase 12 U/L (7-40); Albumin 3.4 g/dL (3.2-4.8); Alkaline Phosphatase 38 U/L (46-116); Anion Gap 10 (5-15); Aspartate Aminotransferase 17 U/L (13-40); Calcium 8.9 mg/dL (8.7-10.4); Carbon Dioxide 24 mmol/L (20-30); Chloride 107 mmol/L (98-107); Glucose 109 mg/dL (74-106); Magnesium 1.6 mg/dL (1.6-2.6); Phosphorus 2.2 mg/dL (2.4-5.1); Potassium 3.5 mmol/L (3.5-5.1); Sodium 141 mmol/L (136-145)
[2023-06-27 05:31] LABS: Bilirubin, Total 0.8 mg/dL (0.2-1.0); Total Protein 6.6 g/dL (5.7-8.2)
[2023-06-27 05:42] LABS: Blood Urea Nitrogen < 5 mg/dL (9-23)
[2023-06-27 06:59] LABS: Base Excess -1.2 mmol/L (-2.0-2.0)
[2023-06-27] MEDS: DexAMETHasone SOD PHOS 10MG/1ML VIAL INJ IV SCH (08:39)
[2023-06-27 08:50] LABS: Basophils # (auto) 0 10 ^3/uL (0-0.2); Eosinophils # (auto) 0.1 10 ^3/uL (0-0.8); Monocytes # (auto) 1.3 10 ^3/uL (0-1.3); Nucleated Red Blood Cells % 0.1 %; White Blood Cell 12.7 10^3/uL (4.4-10.8)
[2023-06-27 08:52] LABS: Basophils % (auto) 0.3 % (0.0-2.0); Eosinophils % (auto) 0.5 % (0.0-7.0); Hematocrit 26.7 % (41.0-53.0); Hemoglobin 7.6 g/dL (13.5-17.5); Lymphocytes % (auto) 7.6 % (10.0-50.0); Mean Corpuscular Hemoglobin 23.8 pg (28.0-32.0); Mean Corpuscular Hgb Conc. 28.6 g/dL (32.0-36.0); Mean Corpuscular Volume 83.1 fL (80.0-100.0); Monocytes % (auto) 10.4 % (0.0-12.0); Neutrophils # (auto) 10.3 10 ^3/uL (1.6-8.6); Neutrophils % (auto) 81.2 % (37.0-80.0); Red Blood Cells 3.21 10^6/uL (4.5-5.90)
[2023-06-27 09:47] LABS: Red Cell Distribution Width 20.1 % (11.8-14.3)
[2023-06-27 11:21] LABS: Anisocytosis Slight; Hypochromia Moderate; Ovalocytes FEW; Platelet Estimate Adequate
[2023-06-27] MEDS: POTASSIUM PHOSPHATE 22 MEQ in SODIUM CHL 0.9% 100 ML IV ONE (13:30)
[2023-06-27] MEDS: MAGNESIUM SULFATE 1GM/100ML 100 ML IV ONE (13:55)
[2023-06-27] MEDS: diphenhdrAMINE HCL 50 MG/1 ML VL IV ONE (13:56)
[2023-06-27] MEDS: PPN PER PHARMACY IV NR (19:58)
[2023-06-28] VITALS (14 sets, daily range): BP systolic 90–108; BP diastolic 57–68; PULSE 94–111; RESP 14–36; O2SAT 91–100
[2023-06-28 07:24] LABS: Basophils # (auto) 0 10 ^3/uL (0-0.2); Basophils % (auto) 0.1 % (0.0-2.0); Eosinophils # (auto) 0 10 ^3/uL (0-0.8); Hemoglobin 7.5 g/dL (13.5-17.5); Monocytes # (auto) 0.9 10 ^3/uL (0-1.3); Nucleated Red Blood Cells % 0.1 %
[2023-06-28 07:28] LABS: Anion Gap 7 (5-15); Carbon Dioxide 29 mmol/L (20-30); Chloride 101 mmol/L (98-107); Potassium 3.5 mmol/L (3.5-5.1); Sodium 137 mmol/L (136-145)
[2023-06-28 07:29] LABS: Calcium 8.4 mg/dL (8.5-10.1)
[2023-06-28 07:31] LABS: Albumin 3.1 g/dL (3.2-4.8)
[2023-06-28 07:34] LABS: Blood Urea Nitrogen 9 mg/dL (9-23); GFR African American 1008 mL/min; GFR Non-African American 833 mL/min; Glucose 146 mg/dL (74-106)
[2023-06-28 07:35] LABS: Hematocrit 24.6 % (41.0-53.0); Lymphocytes # (auto) 0.6 10 ^3/uL (0.4-5.4); Lymphocytes % (auto) 7.2 % (10.0-50.0); Mean Corpuscular Hemoglobin 24.2 pg (28.0-32.0); Mean Corpuscular Hgb Conc. 30.4 g/dL (32.0-36.0); Mean Corpuscular Volume 79.7 fL (80.0-100.0); Monocytes % (auto) 9.9 % (0.0-12.0); Neutrophils # (auto) 7.4 10 ^3/uL (1.6-8.6); Neutrophils % (auto) 82.8 % (37.0-80.0); Red Blood Cells 3.09 10^6/uL (4.5-5.90); Red Cell Distribution Width 19.5 % (11.8-14.3)
[2023-06-28 07:36] LABS: Phosphorus 2.3 mg/dL (2.4-5.1)
[2023-06-28 07:47] LABS: Magnesium 1.8 mg/dL (1.6-2.6)
[2023-06-28] MEDS: POTASSIUM PHOSPHATE 22 MEQ in SODIUM CHL 0.9% 100 ML IV ONE (12:52)
[2023-06-28] MEDS ORDERED: PPN PER PHARMACY IV NR (20:00)
[2023-06-29] VITALS (24 sets, daily range): BP systolic 92–126; BP diastolic 59–78; PULSE 92–137; RESP 20–46; TEMP 98–98.8; O2SAT 85–99
[2023-06-29] MEDS: LORazepam 2MG/ML-1ML VIAL IV PRN (01:18)
[2023-06-29 07:00] LABS: Basophils # (auto) 0 10 ^3/uL (0-0.2); Basophils % (auto) 0.1 % (0.0-2.0); Eosinophils # (auto) 0 10 ^3/uL (0-0.8); Hemoglobin 7.5 g/dL (13.5-17.5)
[2023-06-29 07:02] LABS: Hematocrit 23.6 % (41.0-53.0); Lymphocytes # (auto) 0.8 10 ^3/uL (0.4-5.4); Lymphocytes % (auto) 9.1 % (10.0-50.0); Mean Corpuscular Hemoglobin 24.6 pg (28.0-32.0); Mean Corpuscular Hgb Conc. 31.9 g/dL (32.0-36.0); Mean Corpuscular Volume 77.1 fL (80.0-100.0); Monocytes # (auto) 0.9 10 ^3/uL (0-1.3); Monocytes % (auto) 10.5 % (0.0-12.0); Neutrophils # (auto) 7.1 10 ^3/uL (1.6-8.6); Neutrophils % (auto) 80.3 % (37.0-80.0); Nucleated Red Blood Cells % 0.2 %; Red Blood Cells 3.06 10^6/uL (4.5-5.90); White Blood Cell 8.9 10^3/uL (4.4-10.8)
[2023-06-29 07:16] LABS: Alanine Aminotransferase 15 U/L (7-40); Albumin 3.1 g/dL (3.2-4.8); Alkaline Phosphatase 31 U/L (46-116); Anion Gap 5 (5-15); Aspartate Aminotransferase 15 U/L (13-40); Bilirubin, Total 0.3 mg/dL (0.2-1.0); Blood Urea Nitrogen 9 mg/dL (9-23); Calcium 8.6 mg/dL (8.7-10.4); Carbon Dioxide 30 mmol/L (20-30); Chloride 101 mmol/L (98-107); Glucose 138 mg/dL (74-106); Magnesium 1.6 mg/dL (1.6-2.6); Phosphorus 2.4 mg/dL (2.4-5.1); Potassium 4.2 mmol/L (3.5-5.1); Red Cell Distribution Width 20.6 % (11.8-14.3); Sodium 136 mmol/L (136-145)
[2023-06-29] MEDS: Jevity 1.2 Cal/Fiber 1 Liter GT SCH (11:19)
[2023-06-29] MEDS ORDERED: PPN PER PHARMACY 0 ML IV SCH (15:30)
[2023-06-29] MEDS: SODIUM PHOSPHATES 20 MEQ in SODIUM CHL 0.9% 100 ML IV ONE (16:00)
[2023-06-29] MEDS: AMINO ACID INFUSION IN D10W 1,000 ML IV SCH (19:56)
[2023-06-29] MEDS ORDERED: DEXTROSE (50%) 50ML SYRG IV SCH (20:00)
[2023-06-30] VITALS (53 sets, daily range): BP systolic 84–127; BP diastolic 49–83; PULSE 98–134; RESP 14–41; TEMP 97.8–98.5; O2SAT 90–100
[2023-06-30] MEDS: ACCU-CHEK COMFORT CURVE STRIP VI SCH
[2023-06-30] MEDS: InsuLIN REG 1unit/0.01ml Soln (100units/ml) SC SCH
[2023-06-30 05:52] LABS: Basophils # (auto) 0 10 ^3/uL (0-0.2); Eosinophils # (auto) 0 10 ^3/uL (0-0.8); Eosinophils % (auto) 0.1 % (0.0-7.0); Hemoglobin 7.5 g/dL (13.5-17.5); Lymphocytes # (auto) 1.1 10 ^3/uL (0.4-5.4); Mean Corpuscular Volume 76.7 fL (80.0-100.0); White Blood Cell 11.8 10^3/uL (4.4-10.8)
[2023-06-30 05:55] LABS: Basophils % (auto) 0.1 % (0.0-2.0); Hematocrit 24.4 % (41.0-53.0); Lymphocytes % (auto) 9.4 % (10.0-50.0); Mean Corpuscular Hemoglobin 23.4 pg (28.0-32.0); Mean Corpuscular Hgb Conc. 30.6 g/dL (32.0-36.0); Monocytes # (auto) 1.1 10 ^3/uL (0-1.3); Monocytes % (auto) 9.7 % (0.0-12.0); Neutrophils # (auto) 9.5 10 ^3/uL (1.6-8.6); Neutrophils % (auto) 80.7 % (37.0-80.0); Nucleated Red Blood Cells % 0.2 %; Red Blood Cells 3.18 10^6/uL (4.5-5.90)
[2023-06-30 05:57] LABS: Anion Gap 4 (5-15); Carbon Dioxide 33 mmol/L (20-30); Chloride 100 mmol/L (98-107); Potassium 3.8 mmol/L (3.5-5.1); Sodium 137 mmol/L (136-145)
[2023-06-30 05:59] LABS: Calcium 8.7 mg/dL (8.7-10.4)
[2023-06-30 06:03] LABS: GFR African American 1008 mL/min; GFR Non-African American 833 mL/min; Glucose 97 mg/dL (74-106)
[2023-06-30 06:04] LABS: BUN/Creatinine Ratio 46.7 (10.0-20.0); Blood Urea Nitrogen 7 mg/dL (9-23); Magnesium 1.5 mg/dL (1.6-2.6)
[2023-06-30 06:06] LABS: Phosphorus 4.1 mg/dL (2.4-5.1)
[2023-06-30 06:11] LABS: Red Cell Distribution Width 20.1 % (11.8-14.3)
[2023-06-30] MEDS: SODIUM CHLORIDE 0.9% 250 ML IV ONE (08:43)
[2023-06-30] MEDS: MAGNESIUM SULFATE 1GM/100ML 100 ML IV SCH (08:43)
[2023-06-30] MEDS: MORPHINE SULFATE INJ 2 MG/ml SYRG IV PRN (15:52)
[2023-06-30] MEDS: PPN PER PHARMACY IV NR (20:22)
[2023-07-01] VITALS (53 sets, daily range): BP systolic 85–140; BP diastolic 46–89; PULSE 94–143; RESP 14–43; TEMP 98–98.7; O2SAT 85–100
[2023-07-01 06:06] LABS: Basophils # (auto) 0 10 ^3/uL (0-0.2); Eosinophils # (auto) 0.1 10 ^3/uL (0-0.8); Monocytes # (auto) 1.1 10 ^3/uL (0-1.3)
[2023-07-01 06:08] LABS: Eosinophils % (auto) 0.8 % (0.0-7.0); Hematocrit 23.8 % (41.0-53.0); Hemoglobin 7.2 g/dL (13.5-17.5); Lymphocytes % (auto) 7.8 % (10.0-50.0); Mean Corpuscular Hemoglobin 23.5 pg (28.0-32.0); Mean Corpuscular Hgb Conc. 30.4 g/dL (32.0-36.0); Mean Corpuscular Volume 77.1 fL (80.0-100.0); Monocytes % (auto) 8.5 % (0.0-12.0); Neutrophils # (auto) 10.9 10 ^3/uL (1.6-8.6); Neutrophils % (auto) 82.9 % (37.0-80.0); Nucleated Red Blood Cells % 0.1 %; Red Blood Cells 3.09 10^6/uL (4.5-5.90); White Blood Cell 13.2 10^3/uL (4.4-10.8)
[2023-07-01 06:18] LABS: Alanine Aminotransferase 14 U/L (7-40); Alkaline Phosphatase 28 U/L (46-116); Anion Gap 5 (5-15); Aspartate Aminotransferase 13 U/L (13-40); BUN/Creatinine Ratio 46.7 (10.0-20.0); Blood Urea Nitrogen 7 mg/dL (9-23); Calcium 8.4 mg/dL (8.7-10.4); Carbon Dioxide 29 mmol/L (20-30); Chloride 101 mmol/L (98-107); Glucose 101 mg/dL (74-106); Potassium 3.4 mmol/L (3.5-5.1); Sodium 135 mmol/L (136-145)
[2023-07-01 06:19] LABS: Bilirubin, Total 0.3 mg/dL (0.2-1.0); Phosphorus 3.9 mg/dL (2.4-5.1); Total Protein 5.5 g/dL (5.7-8.2)
[2023-07-01 08:20] LABS: Base Excess 4.6 mmol/L (-2.0-2.0)
[2023-07-01] MEDS: POTASSIUM CHL 20MEQ/100ML 100 ML IV SCH (09:29)
[2023-07-01] MEDS: MORPHINE SULFATE INJ 2 MG/ml SYRG IV ONE (13:22)
[2023-07-01] MEDS: LORazepam 2MG/ML-1ML VIAL IV ONE (14:02)
[2023-07-01] MEDS: PANTOPRAZOLE 40 MG/10 ML VIAL INJ IV SCH (19:32)
[2023-07-01] MEDS: PPN PER PHARMACY IV NR (19:36)
[2023-07-02] VITALS (33 sets, daily range): BP systolic 87–107; BP diastolic 51–67; PULSE 92–131; RESP 14–41; TEMP 96.6–99; O2SAT 92–100
[2023-07-02 06:28] LABS: Basophils # (auto) 0 10 ^3/uL (0-0.2); Eosinophils # (auto) 0.1 10 ^3/uL (0-0.8); Eosinophils % (auto) 0.6 % (0.0-7.0); Hemoglobin 7.7 g/dL (13.5-17.5); Lymphocytes # (auto) 0.9 10 ^3/uL (0.4-5.4); Neutrophils # (auto) 10.5 10 ^3/uL (1.6-8.6); Nucleated Red Blood Cells % 0.1 %
[2023-07-02 06:33] LABS: Hematocrit 25.8 % (41.0-53.0); Mean Corpuscular Hemoglobin 23.6 pg (28.0-32.0); Mean Corpuscular Volume 78.9 fL (80.0-100.0); Monocytes # (auto) 1.1 10 ^3/uL (0-1.3); Monocytes % (auto) 9.1 % (0.0-12.0); Neutrophils % (auto) 83.3 % (37.0-80.0); Red Blood Cells 3.27 10^6/uL (4.5-5.90); White Blood Cell 12.6 10^3/uL (4.4-10.8)
[2023-07-02 06:36] LABS: Alanine Aminotransferase 12 U/L (7-40); Albumin 3.1 g/dL (3.2-4.8); Alkaline Phosphatase 30 U/L (46-116); Anion Gap 5 (5-15); Aspartate Aminotransferase 15 U/L (13-40); BUN/Creatinine Ratio 53.3 (10.0-20.0); Blood Urea Nitrogen 8 mg/dL (9-23); Calcium 8.5 mg/dL (8.5-10.1); Carbon Dioxide 31 mmol/L (20-30); Chloride 100 mmol/L (98-107); Glucose 108 mg/dL (74-106); Red Cell Distribution Width 20.7 % (11.8-14.3); Sodium 136 mmol/L (136-145)
[2023-07-02 06:37] LABS: Bilirubin, Total 0.3 mg/dL (0.2-1.0); Phosphorus 3.7 mg/dL (2.4-5.1)
[2023-07-02 08:53] LABS: Base Excess 4.7 mmol/L (-2.0-2.0)
[2023-07-02 12:43] LABS: COVID19 ANTIGEN SOFIA FIA NEGATIVE (NEGATIVE)
[2023-07-02] MEDS ORDERED: PPN PER PHARMACY IV NR (20:00)
[2023-07-03] VITALS (33 sets, daily range): BP systolic 78–113; BP diastolic 41–71; PULSE 95–134; RESP 19–36; TEMP 97.9–99; O2SAT 88–100
[2023-07-03 06:36] LABS: Alanine Aminotransferase 10 U/L (7-40); Albumin 3.3 g/dL (3.2-4.8); Alkaline Phosphatase 33 U/L (46-116); Anion Gap 4 (5-15); Aspartate Aminotransferase 12 U/L (13-40); BUN/Creatinine Ratio 66.7 (10.0-20.0); Blood Urea Nitrogen 10 mg/dL (9-23); Calcium 9.1 mg/dL (8.7-10.4); Carbon Dioxide 30 mmol/L (20-30); Chloride 101 mmol/L (98-107); Glucose 103 mg/dL (74-106); Magnesium 1.9 mg/dL (1.6-2.6); Potassium 4.5 mmol/L (3.5-5.1); Sodium 135 mmol/L (136-145)
[2023-07-03 06:37] LABS: Bilirubin, Total 0.5 mg/dL (0.2-1.0)
[2023-07-03 06:38] LABS: Basophils # (auto) 0 10 ^3/uL (0-0.2); Basophils % (auto) 0.1 % (0.0-2.0); Eosinophils # (auto) 0 10 ^3/uL (0-0.8); Hemoglobin 7.9 g/dL (13.5-17.5); Lymphocytes # (auto) 0.8 10 ^3/uL (0.4-5.4); White Blood Cell 12.2 10^3/uL (4.4-10.8)
[2023-07-03 06:40] LABS: Eosinophils % (auto) 0.3 % (0.0-7.0); Hematocrit 25.9 % (41.0-53.0); Lymphocytes % (auto) 6.5 % (10.0-50.0); Mean Corpuscular Hemoglobin 23.6 pg (28.0-32.0); Mean Corpuscular Hgb Conc. 30.5 g/dL (32.0-36.0); Mean Corpuscular Volume 77.5 fL (80.0-100.0); Monocytes % (auto) 8.4 % (0.0-12.0); Neutrophils # (auto) 10.3 10 ^3/uL (1.6-8.6); Neutrophils % (auto) 84.7 % (37.0-80.0); Nucleated Red Blood Cells % 0.3 %; Red Blood Cells 3.35 10^6/uL (4.5-5.90)
[2023-07-03 07:08] LABS: Phosphorus 3.8 mg/dL (2.4-5.1)
[2023-07-03 07:36] LABS: Base Excess 6.7 mmol/L (-2.0-2.0)
[2023-07-03 08:09] LABS: Red Cell Distribution Width 20.9 % (11.8-14.3)
[2023-07-03] MEDS: LORazepam 2MG/ML-1ML VIAL IV ONE (14:51)
[2023-07-03] MEDS: levoFLOXacin 500MG 100 ML IV SCH (19:40)
[2023-07-03] MEDS: LORazepam 2MG/ML-1ML VIAL IV PRN (22:04)
[2023-07-04] VITALS (49 sets, daily range): BP systolic 82–100; BP diastolic 46–67; PULSE 90–119; RESP 15–42; TEMP 97.7–99.9; O2SAT 87–100
[2023-07-04 05:46] LABS: Basophils # (auto) 0 10 ^3/uL (0-0.2); Eosinophils # (auto) 0.1 10 ^3/uL (0-0.8); Hemoglobin 8.2 g/dL (13.5-17.5); Lymphocytes # (auto) 1.3 10 ^3/uL (0.4-5.4); Mean Corpuscular Volume 76.3 fL (80.0-100.0); Monocytes # (auto) 1.2 10 ^3/uL (0-1.3); Nucleated Red Blood Cells % 0.2 %
[2023-07-04 05:49] LABS: Eosinophils % (auto) 0.7 % (0.0-7.0); Hematocrit 26.6 % (41.0-53.0); Lymphocytes % (auto) 12.8 % (10.0-50.0); Mean Corpuscular Hemoglobin 23.5 pg (28.0-32.0); Mean Corpuscular Hgb Conc. 30.8 g/dL (32.0-36.0); Monocytes % (auto) 11.7 % (0.0-12.0); Neutrophils # (auto) 7.7 10 ^3/uL (1.6-8.6); Neutrophils % (auto) 74.8 % (37.0-80.0); Red Blood Cells 3.49 10^6/uL (4.5-5.90); White Blood Cell 10.3 10^3/uL (4.4-10.8)
[2023-07-04 05:52] LABS: Chloride 98 mmol/L (98-107); Potassium 4.1 mmol/L (3.5-5.1); Sodium 136 mmol/L (136-145)
[2023-07-04 05:53] LABS: Anion Gap 7 (5-15); Carbon Dioxide 31 mmol/L (20-30)
[2023-07-04 05:54] LABS: Calcium 9.3 mg/dL (8.5-10.1)
[2023-07-04 05:58] LABS: BUN/Creatinine Ratio 73.3 (10.0-20.0); Blood Urea Nitrogen 11 mg/dL (9-23); Glucose 77 mg/dL (74-106)
[2023-07-04 07:45] LABS: Base Excess 7.1 mmol/L (-2.0-2.0)
[2023-07-05] VITALS (27 sets, daily range): BP systolic 84–102; BP diastolic 44–63; PULSE 88–116; RESP 16–30; TEMP 98.3–99.1; O2SAT 92–100
[2023-07-05 05:50] LABS: Anion Gap 9 (5-15); Carbon Dioxide 28 mmol/L (20-30); Chloride 98 mmol/L (98-107); Potassium 3.8 mmol/L (3.5-5.1); Sodium 135 mmol/L (136-145)
[2023-07-05 05:51] LABS: Calcium 9.7 mg/dL (8.7-10.4)
[2023-07-05 05:55] LABS: Glucose 95 mg/dL (74-106)
[2023-07-05 05:56] LABS: Blood Urea Nitrogen 9 mg/dL (9-23)
[2023-07-05 06:02] LABS: Basophils # (auto) 0 10 ^3/uL (0-0.2); Eosinophils # (auto) 0.1 10 ^3/uL (0-0.8); Hemoglobin 9.1 g/dL (13.5-17.5); Monocytes # (auto) 1.5 10 ^3/uL (0-1.3); Nucleated Red Blood Cells % 0.2 %; White Blood Cell 10.5 10^3/uL (4.4-10.8)
[2023-07-05 06:04] LABS: Eosinophils % (auto) 0.7 % (0.0-7.0); Hematocrit 29.7 % (41.0-53.0); Lymphocytes # (auto) 1.4 10 ^3/uL (0.4-5.4); Lymphocytes % (auto) 13.6 % (10.0-50.0); Mean Corpuscular Hemoglobin 23.2 pg (28.0-32.0); Mean Corpuscular Hgb Conc. 30.8 g/dL (32.0-36.0); Mean Corpuscular Volume 75.4 fL (80.0-100.0); Monocytes % (auto) 14.4 % (0.0-12.0); Neutrophils # (auto) 7.5 10 ^3/uL (1.6-8.6); Neutrophils % (auto) 71.3 % (37.0-80.0); Red Blood Cells 3.94 10^6/uL (4.5-5.90)
[2023-07-05 06:14] LABS: Red Cell Distribution Width 21.1 % (11.8-14.3)
[2023-07-05 07:58] LABS: Base Excess 7.4 mmol/L (-2.0-2.0)
[2023-07-05] MEDS: ACETAMINOPHEN 325 MG TAB PO PRN (10:46)
[2023-07-06] VITALS (26 sets, daily range): BP systolic 91–141; BP diastolic 50–85; PULSE 91–126; RESP 16–28; TEMP 97.8–98.8; O2SAT 95–100
[2023-07-06] MEDS: ACCU-CHEK COMFORT CURVE STRIP VI SCH (10:03)
[2023-07-07] VITALS (20 sets, daily range): BP systolic 86–110; BP diastolic 44–70; PULSE 102–125; RESP 17–25; TEMP 97.8–98.7; O2SAT 92–100
[2023-07-07 06:09] LABS: Basophils # (auto) 0 10 ^3/uL (0-0.2); Basophils % (auto) 0.1 % (0.0-2.0); Eosinophils # (auto) 0.1 10 ^3/uL (0-0.8); Eosinophils % (auto) 0.7 % (0.0-7.0); Hemoglobin 8.9 g/dL (13.5-17.5); Mean Corpuscular Hemoglobin 23.6 pg (28.0-32.0); Monocytes # (auto) 1.3 10 ^3/uL (0-1.3); Monocytes % (auto) 12.2 % (0.0-12.0)
[2023-07-07 06:11] LABS: Alanine Aminotransferase 12 U/L (7-40); Albumin 3.8 g/dL (3.2-4.8); Alkaline Phosphatase 38 U/L (46-116); Anion Gap 6 (5-15); Aspartate Aminotransferase 12 U/L (13-40); BUN/Creatinine Ratio 93.3 (10.0-20.0); Blood Urea Nitrogen 14 mg/dL (9-23); Calcium 9.4 mg/dL (8.5-10.1); Carbon Dioxide 31 mmol/L (20-30); Chloride 99 mmol/L (98-107); Glucose 98 mg/dL (74-106); Potassium 3.5 mmol/L (3.5-5.1); Sodium 136 mmol/L (136-145)
[2023-07-07 06:12] LABS: Bilirubin, Total 1.1 mg/dL (0.2-1.0); Hematocrit 28.2 % (41.0-53.0); Lymphocytes # (auto) 1.3 10 ^3/uL (0.4-5.4); Mean Corpuscular Hgb Conc. 31.4 g/dL (32.0-36.0); Mean Corpuscular Volume 75.2 fL (80.0-100.0); Neutrophils # (auto) 8.2 10 ^3/uL (1.6-8.6); Red Blood Cells 3.75 10^6/uL (4.5-5.90)
[2023-07-07 06:56] LABS: Red Cell Distribution Width 20.2 % (11.8-14.3)
[2023-07-07] MEDS ORDERED: IPR002IS NEB (11:29)
[2023-07-07] MEDS ORDERED: BUDE0.253 IN (11:29)
[2023-07-07] MEDS ORDERED: LORA-1123 PO (11:36)
== END 2023-07-07 18:52 | disposition home health service (06) | DRG 720 ==
LOC: EDBD 15:07 → ER 15:07 → TELE 18:44 → DOU IN ICU 06-29 15:03
PROVIDERS: ADMIT Internal Medicine Pulmonary Disease; ATTEND Internal Medicine Pulmonary Disease
PROC: 5A1955Z Respiratory Ventilation, Greater than 96 Consecutive Hours (ICD-10-PCS; 2023-06-24)
PROC: 0D20XUZ Change Feeding Device in Upper Intestinal Tract, External Approach (ICD-10-PCS; principal; 2023-07-03)
DX: A41.89 Other specified sepsis (principal); J96.01 Acute respiratory failure with hypoxia; J12.82 Pneumonia due to coronavirus disease 2019; I50.23 Acute on chronic systolic (congestive) heart failure; U07.1 COVID-19; K94.23 Gastrostomy malfunction; G71.01 Duchenne or Becker muscular dystrophy; I11.0 Hypertensive heart disease with heart failure; E03.9 Hypothyroidism, unspecified; R13.10 Dysphagia, unspecified; F41.9 Anxiety disorder, unspecified; E87.6 Hypokalemia; K59.00 Constipation, unspecified; E83.42 Hypomagnesemia; Z88.8 Allergy status to other drugs, medicaments and biological substances; Z82.49 Family history of ischemic heart disease and other diseases of the circulatory system; Z83.3 Family history of diabetes mellitus
CPT/HCPCS: 36415; 36600; 71045; 71275; 80048; 80053; 80069; 81001; 82805; 82962; 83605; 83735; 84100; 84132; 84478; 85025; 87040; 87070; 87077; 87081; 87086; 87186; 87205; 87426; 87804; 93005; 94002; 94003; 94640; 96365; 96368; 96375; C9113; G0378; J1100; J1815; J1956; J2405; J2543; J3480; J3490; J7060; J7131

== ENCOUNTER 2023-08-15 09:30 | Inpatient (IN) | payer MEDICAID ==
[2023-08-15] VITALS (9 sets, daily range): BP systolic 98–132; BP diastolic 62–85; PULSE 87–142; RESP 14–29; TEMP 98; O2SAT 80–92
[~2023-08-15] VITALS: Ht 167.6 cm; Wt 61.7 kg
[~2023-08-15 09:30] MED LIST changes: -ALBU0.084 NEB; +BUDE0.253 IN; -FAMO-12 GT; +FAMO-12 PO; +HYDR1SYP PO; +IPR002IS NEB; -LEVO25TA6 GT; +LEVO25TA6 PO; +LORA-1123 PO
[2023-08-15 10:37] LABS: Chloride 93 mmol/L (98-107); Potassium 4.3 mmol/L (3.5-5.1); Sodium 135 mmol/L (136-145)
[2023-08-15 10:38] LABS: Anion Gap 2 (5-15); Calcium 9.3 mg/dL (8.5-10.1); Carbon Dioxide 40 mmol/L (20-30); Red Blood Cells 4.19 10^6/uL (4.5-5.90); White Blood Cell 18.6 10^3/uL (4.4-10.8)
[2023-08-15 10:41] LABS: Hematocrit 31.3 % (41.0-53.0); Hemoglobin 9.5 g/dL (13.5-17.5); Mean Corpuscular Hemoglobin 22.7 pg (28.0-32.0); Mean Corpuscular Hgb Conc. 30.4 g/dL (32.0-36.0); Mean Corpuscular Volume 74.8 fL (80.0-100.0)
[2023-08-15] MEDS: IPRATROPIUM BROM 0.5 MG/2.5ML INH SOL HHN ONE (10:42)
[2023-08-15] MEDS: ALBUTEROL SULF 2.5 MG/0.5ML(0.5%) NEB SOLN HHN ONE (10:42)
[2023-08-15 10:43] LABS: BUN/Creatinine Ratio 73.3 (10.0-20.0); Blood Urea Nitrogen 11 mg/dL (9-23); Glucose 136 mg/dL (74-106)
[2023-08-15 10:56] LABS: Red Cell Distribution Width 20.1 % (11.8-14.3)
[2023-08-15 10:58] LABS: Band Neutrophils % (manual) 0; Basophils % (manual) 0 (0.0-2.0); Blast Cells 0; Eosinophils % (manual) 0 (0-7); Metamyelocytes % 0; Myelocytes % 0; Promyelocytes % 0; Reactive Lymphocytes 0
[2023-08-15 11:17] LABS: Base Excess 10.9 mmol/L (-2.0-2.0)
[2023-08-15] MEDS ORDERED: DOCUSATE SOD 100 MG CAP PO PRN (11:30)
[2023-08-15] MEDS: SODIUM CHLORIDE 0.9% 1,000 ML IV SCH (11:30)
[2023-08-15] MEDS ORDERED: VANCOMYCIN PER PHARMACY 0 MG IV SCH (11:30)
[2023-08-15] MEDS: methylPREDNISolone SOD SUCC 125 MG/2 ML VL IV ONE ×2 (11:30→13:55)
[2023-08-15 12:07] LABS: Lymphocytes % (manual) 13 (10.0-50.0); Monocytes % (manual) 2 (0-12)
[2023-08-15 12:08] LABS: Anisocytosis Slight; Platelet Estimate Adequate
[2023-08-15 12:09] LABS: Hypochromia Moderate
[2023-08-15 12:57] LABS: INR 1.24 (0.9-1.15); Prothrombin Time 12.9 sec (9.3-11.8)
[2023-08-15] MEDS: IPRATROPIUM BROM 0.5 MG/2.5ML INH SOL NEB SCH (13:49)
[2023-08-15] MEDS: ALBUTEROL SULF 2.5 MG/0.5ML(0.5%) NEB SOLN NEB SCH (13:49)
[2023-08-15] MEDS: levoFLOXacin 500MG 100 ML IV ONE (13:58)
[2023-08-15] MEDS: FUROSEMIDE 40 MG/4 ML VIAL IV ONE (13:59)
[2023-08-15] MEDS: LORazepam 0.5 MG TAB PO SCH (14:00)
[2023-08-15] MEDS: methylPREDNISolone SOD SUCC 125 MG/2 ML VL IV SCH (14:00)
[2023-08-15] MEDS: LORazepam 2MG/ML-1ML VIAL IV ONE (15:42)
[2023-08-15] MEDS: VANCOMYCIN 1GM/200ML 200 ML IV ONE (15:44)
[2023-08-15] MEDS: FUROSEMIDE 20 MG/2 ML VIAL IV SCH (19:59)
[2023-08-15] MEDS: FAMOTIDINE 20 MG TAB GT SCH (22:00)
[2023-08-15] MEDS: traZODone HCL 50 MG TAB PO ONE (23:12)
[2023-08-15 23:56] LABS: Urine Bacteria None Seen /hpf (None Seen)
[2023-08-16] VITALS (16 sets, daily range): BP systolic 82–183; BP diastolic 44–63; PULSE 109–125; RESP 14–38; O2SAT 91–98
[2023-08-16 00:10] LABS: Urine Blood Negative /uL (Negative); Urine Clarity Clear (Clear); Urine Color Light-Yellow (Yellow); Urine Hyaline Cast FEW /lpf (0 - 2); Urine Mucus FEW (None Seen); Urine Protein, UAD Negative (Negative); Urine Specific Gravity 1.015 (1.001-1.035); Urine Urobilinogen Normal (Negative); Urine WBC 1 /hpf (0 - 3)
[2023-08-16] MEDS: VANCOMYCIN 1GM/200ML 200 ML IV SCH (01:05)
[2023-08-16 04:44] LABS: Basophils # (auto) 0 10 ^3/uL (0-0.2); Eosinophils # (auto) 0 10 ^3/uL (0-0.8); Lymphocytes # (auto) 0.4 10 ^3/uL (0.4-5.4); Mean Corpuscular Volume 74.8 fL (80.0-100.0); Monocytes # (auto) 0.3 10 ^3/uL (0-1.3); Nucleated Red Blood Cells % 0.1 %
[2023-08-16 04:47] LABS: Hematocrit 28.7 % (41.0-53.0); Hemoglobin 9.1 g/dL (13.5-17.5); Lymphocytes % (auto) 3.2 % (10.0-50.0); Mean Corpuscular Hemoglobin 23.8 pg (28.0-32.0); Mean Corpuscular Hgb Conc. 31.8 g/dL (32.0-36.0); Monocytes % (auto) 2.7 % (0.0-12.0); Neutrophils # (auto) 10.3 10 ^3/uL (1.6-8.6); Neutrophils % (auto) 94.1 % (37.0-80.0); Red Blood Cells 3.83 10^6/uL (4.5-5.90); Red Cell Distribution Width 19.6 % (11.8-14.3)
[2023-08-16 05:03] LABS: Alanine Aminotransferase 16 U/L (7-40); Albumin 3.7 g/dL (3.2-4.8); Calcium 9.5 mg/dL (8.7-10.4); Carbon Dioxide 35 mmol/L (20-30); Chloride 91 mmol/L (98-107); Glucose 117 mg/dL (74-106)
[2023-08-16 05:04] LABS: Anion Gap 13 (5-15); Aspartate Aminotransferase 11 U/L (13-40); BUN/Creatinine Ratio 86.7 (10.0-20.0); Bilirubin, Total 0.5 mg/dL (0.2-1.0); Blood Urea Nitrogen 13 mg/dL (9-23); Sodium 139 mmol/L (136-145); Total Protein 7.1 g/dL (5.7-8.2)
[2023-08-16 05:22] LABS: Rapid Influenza A Negative (Negative); Rapid Influenza B Negative (Negative)
[2023-08-16 05:23] LABS: COVID19 ANTIGEN SOFIA FIA NEGATIVE (NEGATIVE)
[2023-08-16 05:24] LABS: Alkaline Phosphatase 51 U/L (46-116)
[2023-08-16] MEDS: LEVOTHYROXINE SODIUM 25 MCG TAB GT SCH (07:00)
[2023-08-16] MEDS: POTASSIUM CHL 20MEQ/100ML 100 ML IV SCH (09:57)
[2023-08-16] MEDS ORDERED: FUROSEMIDE 40 MG/4 ML VIAL IV SCH (10:00)
[2023-08-16] MEDS: ENOXAPARIN SOD 40 MG/0.4 ML SYRINGE SC SCH (11:06)
[2023-08-16] MEDS: POLYETHYLENE GLYCOL 17 GM PWDR PO SCH (11:07)
[2023-08-16] MEDS: levoFLOXacin 500MG 100 ML IV SCH (16:09)
[2023-08-16] MEDS: MAGNESIUM SULFATE 1GM/100ML 100 ML IV ONE (18:19)
[2023-08-16] MEDS: traZODone HCL 50 MG TAB PO SCH (22:45)
[2023-08-17] VITALS (13 sets, daily range): BP systolic 92–113; BP diastolic 47–71; PULSE 111–118; RESP 14–23; O2SAT 93–98
[2023-08-17 06:37] LABS: Basophils # (auto) 0 10 ^3/uL (0-0.2); Eosinophils # (auto) 0 10 ^3/uL (0-0.8); Lymphocytes # (auto) 0.9 10 ^3/uL (0.4-5.4); Mean Corpuscular Volume 75.5 fL (80.0-100.0)
[2023-08-17 06:41] LABS: Basophils % (auto) 0.1 % (0.0-2.0); Hematocrit 26.7 % (41.0-53.0); Hemoglobin 8.3 g/dL (13.5-17.5); Lymphocytes % (auto) 8.2 % (10.0-50.0); Mean Corpuscular Hemoglobin 23.5 pg (28.0-32.0); Mean Corpuscular Hgb Conc. 31.1 g/dL (32.0-36.0); Monocytes # (auto) 1.3 10 ^3/uL (0-1.3); Neutrophils # (auto) 9.2 10 ^3/uL (1.6-8.6); Neutrophils % (auto) 80.7 % (37.0-80.0); Nucleated Red Blood Cells % 0.2 %; Red Blood Cells 3.53 10^6/uL (4.5-5.90); White Blood Cell 11.4 10^3/uL (4.4-10.8)
[2023-08-17 06:50] LABS: Alanine Aminotransferase 16 U/L (7-40); Albumin 3.5 g/dL (3.2-4.8); Alkaline Phosphatase 42 U/L (46-116); Anion Gap 4 (5-15); Aspartate Aminotransferase 11 U/L (13-40); Bilirubin, Total 0.4 mg/dL (0.2-1.0); Blood Urea Nitrogen 15 mg/dL (9-23); Calcium 9.3 mg/dL (8.5-10.1); Carbon Dioxide 36 mmol/L (20-30); Chloride 97 mmol/L (98-107); Glucose 84 mg/dL (74-106); Potassium 3.7 mmol/L (3.5-5.1); Sodium 137 mmol/L (136-145); Total Protein 6.4 g/dL (5.7-8.2)
[2023-08-17 06:56] LABS: Base Excess 8.2 mmol/L (-2.0-2.0)
[2023-08-17 08:27] LABS: Hypochromia Moderate; Platelet Estimate Adequate
[2023-08-17] MEDS: MEROPENEM 1GM IVPB 50 ML IV SCH (17:24)
[2023-08-17] MEDS: Jevity 1.2 Cal/Fiber 1 Liter GT SCH (18:28)
[2023-08-17] MEDS: VANCOMYCIN 1GM/200ML 200 ML IV SCH (23:23)
[2023-08-18] VITALS (13 sets, daily range): BP systolic 89–114; BP diastolic 49–73; PULSE 105–120; RESP 16–23; O2SAT 88–94
[2023-08-18 10:03] LABS: Base Excess 11.6 mmol/L (-2.0-2.0)
[2023-08-18 10:35] LABS: Basophils # (auto) 0 10 ^3/uL (0-0.2); Basophils % (auto) 0.1 % (0.0-2.0); Eosinophils # (auto) 0.3 10 ^3/uL (0-0.8); Eosinophils % (auto) 1.9 % (0.0-7.0); Hematocrit 30.6 % (41.0-53.0); Hemoglobin 9.4 g/dL (13.5-17.5); Lymphocytes # (auto) 0.8 10 ^3/uL (0.4-5.4); Lymphocytes % (auto) 5.9 % (10.0-50.0); Mean Corpuscular Hemoglobin 22.9 pg (28.0-32.0); Mean Corpuscular Hgb Conc. 30.5 g/dL (32.0-36.0); Mean Corpuscular Volume 74.8 fL (80.0-100.0); Neutrophils # (auto) 11.6 10 ^3/uL (1.6-8.6); Neutrophils % (auto) 85.1 % (37.0-80.0); Red Blood Cells 4.09 10^6/uL (4.5-5.90); Red Cell Distribution Width 19.9 % (11.8-14.3); White Blood Cell 13.7 10^3/uL (4.4-10.8)
[2023-08-18 10:45] LABS: INR 1.3 (0.9-1.15); Partial Thromboplastin Time 31.4 SEC (24.5-34.5); Prothrombin Time 13.5 sec (9.3-11.8)
[2023-08-18 10:57] LABS: Alanine Aminotransferase 14 U/L (7-40); Alkaline Phosphatase 42 U/L (46-116); Anion Gap 5 (5-15); Aspartate Aminotransferase 10 U/L (13-40); BUN/Creatinine Ratio 66.7 (10.0-20.0); Blood Urea Nitrogen 10 mg/dL (9-23); Carbon Dioxide 36 mmol/L (20-30); Chloride 93 mmol/L (98-107); Glucose 129 mg/dL (74-106); Magnesium 1.5 mg/dL (1.6-2.6); Sodium 134 mmol/L (136-145)
[2023-08-18 10:58] LABS: Albumin 3.5 g/dL (3.2-4.8); Bilirubin, Total 0.6 mg/dL (0.2-1.0); Total Protein 6.3 g/dL (5.7-8.2)
[2023-08-18 11:02] LABS: % Iron Saturation 5.6 % (20-55)
[2023-08-18 11:07] LABS: CRP High Sensitivity 5.27 mg/dL (<1.0)
[2023-08-18] MEDS ORDERED: PATIENTS OWN MEDICATION IV SCH (14:00)
[2023-08-18] MEDS: MAGNESIUM SULFATE 1GM/100ML 100 ML IV SCH (14:24)
[2023-08-18] MEDS: POTASSIUM EFFERVESENT TAB 25 MEQ GT ONE (14:24)
[2023-08-18] MEDS: CEFTAZIDIME AVIBACTAM IV SCH (15:55)
[2023-08-18] MEDS: SODIUM CHL 0.9% IV SCH (15:55)
[2023-08-18] MEDS: POTASSIUM CHLORIDE 40 MEQ, LIDOCAINE 1% (LOCAL ANESTH.) 4 ML in SODIUM CHL 0.9% 250 ML IV ONE (16:13)
[2023-08-19] VITALS (15 sets, daily range): BP systolic 82–112; BP diastolic 38–96; PULSE 111–138; RESP 14–33; O2SAT 87–99
[2023-08-19 06:34] LABS: Basophils # (auto) 0 10 ^3/uL (0-0.2); Eosinophils # (auto) 0.3 10 ^3/uL (0-0.8); Hemoglobin 8.7 g/dL (13.5-17.5); Lymphocytes # (auto) 0.8 10 ^3/uL (0.4-5.4); Monocytes # (auto) 0.7 10 ^3/uL (0-1.3); Nucleated Red Blood Cells % 0.1 %
[2023-08-19 06:36] LABS: Basophils % (auto) 0.1 % (0.0-2.0); Eosinophils % (auto) 2.1 % (0.0-7.0); Hematocrit 28.7 % (41.0-53.0); Lymphocytes % (auto) 5.9 % (10.0-50.0); Mean Corpuscular Hemoglobin 22.9 pg (28.0-32.0); Mean Corpuscular Hgb Conc. 30.4 g/dL (32.0-36.0); Mean Corpuscular Volume 75.4 fL (80.0-100.0); Monocytes % (auto) 4.7 % (0.0-12.0); Neutrophils # (auto) 12.5 10 ^3/uL (1.6-8.6); Neutrophils % (auto) 87.2 % (37.0-80.0); Red Cell Distribution Width 19.9 % (11.8-14.3); White Blood Cell 14.3 10^3/uL (4.4-10.8)
[2023-08-19 06:41] LABS: Alanine Aminotransferase 13 U/L (7-40); Alkaline Phosphatase 40 U/L (46-116); Anion Gap 7 (5-15); Blood Urea Nitrogen 9 mg/dL (9-23); Carbon Dioxide 35 mmol/L (20-30); Chloride 96 mmol/L (98-107); Glucose 127 mg/dL (74-106); Magnesium 1.9 mg/dL (1.6-2.6); Potassium 4.1 mmol/L (3.5-5.1); Sodium 138 mmol/L (136-145)
[2023-08-19 06:42] LABS: Albumin 3.3 g/dL (3.2-4.8); Aspartate Aminotransferase 10 U/L (13-40); Bilirubin, Total 0.7 mg/dL (0.2-1.0); Total Protein 6.1 g/dL (5.7-8.2)
[2023-08-19] MEDS: LORazepam 0.5 MG TAB PO ONE (08:47)
[2023-08-19 09:24] LABS: Base Excess 10.1 mmol/L (-2.0-2.0)
[2023-08-19] MEDS: FUROSEMIDE 20 MG/2 ML VIAL IV ONE (11:10)
[2023-08-19] MEDS: acetaZOLAMIDE SODIUM 500 MG VL IV ONE (11:12)
[2023-08-19] MEDS ORDERED: MET25T PO (14:16)
[2023-08-19] MEDS ORDERED: FURO20TA3 PO (14:18)
[2023-08-19] MEDS ORDERED: TRAZ-227 PO (14:20)
[2023-08-19] MEDS: HYDROCORTISONE SOD SUCC 100 MG/2ML INJ VIAL IV SCH (22:15)
[2023-08-20] VITALS (56 sets, daily range): BP systolic 89–129; BP diastolic 43–87; PULSE 103–140; RESP 14–45; TEMP 96.8–99.1; O2SAT 88–100
[2023-08-20] MEDS: MORPHINE SULFATE INJ 2 MG/ml SYRG IV PRN (00:37)
[2023-08-20] MEDS: ACETAMINOPHEN 650 mg PER 20.3 mL UD GT PRN (05:04)
[2023-08-20] MEDS: ONDANSETRON HCL 4 MG/2 ML VIAL IV PRN (05:04)
[2023-08-20 06:13] LABS: Mean Corpuscular Volume 74.5 fL (80.0-100.0)
[2023-08-20 06:15] LABS: Hemoglobin 9.8 g/dL (13.5-17.5); Mean Corpuscular Hemoglobin 22.7 pg (28.0-32.0); Mean Corpuscular Hgb Conc. 30.4 g/dL (32.0-36.0); White Blood Cell 17.8 10^3/uL (4.4-10.8)
[2023-08-20 06:16] LABS: Red Cell Distribution Width 20.1 % (11.8-14.3)
[2023-08-20 06:18] LABS: Basophils % (manual) 0 (0.0-2.0); Blast Cells 0; Eosinophils % (manual) 0 (0-7); Metamyelocytes % 0; Myelocytes % 0; Promyelocytes % 0; Reactive Lymphocytes 0
[2023-08-20 06:32] LABS: Alanine Aminotransferase 11 U/L (7-40); Albumin 3.8 g/dL (3.2-4.8); Alkaline Phosphatase 46 U/L (46-116); Anion Gap 7 (5-15); Aspartate Aminotransferase < 8 U/L (13-40); BUN/Creatinine Ratio 66.7 (10.0-20.0); Bilirubin, Total 0.5 mg/dL (0.2-1.0); Blood Urea Nitrogen 10 mg/dL (9-23); Calcium 9.5 mg/dL (8.5-10.1); Carbon Dioxide 29 mmol/L (20-30); Chloride 98 mmol/L (98-107); Glucose 170 mg/dL (74-106); Magnesium 1.9 mg/dL (1.6-2.6); Potassium 4.1 mmol/L (3.5-5.1); Sodium 134 mmol/L (136-145); Total Protein 7.1 g/dL (5.7-8.2)
[2023-08-20 06:40] LABS: CRP High Sensitivity 11.47 mg/dL (<1.0)
[2023-08-20 07:53] LABS: Band Neutrophils % (manual) 1; Lymphocytes % (manual) 3 (10.0-50.0); Monocytes % (manual) 1 (0-12)
[2023-08-20 07:54] LABS: Anisocytosis Slight; Hypochromia Moderate; Platelet Estimate Adequate
[2023-08-21] VITALS (37 sets, daily range): BP systolic 89–120; BP diastolic 49–75; PULSE 107–135; RESP 17–47; TEMP 98.1–99.3; O2SAT 90–98
[2023-08-21 06:20] LABS: Mean Corpuscular Hemoglobin 22.6 pg (28.0-32.0); Mean Corpuscular Volume 74.7 fL (80.0-100.0); White Blood Cell 14.7 10^3/uL (4.4-10.8)
[2023-08-21 06:26] LABS: Hemoglobin 9.1 g/dL (13.5-17.5); Mean Corpuscular Hgb Conc. 30.3 g/dL (32.0-36.0); Red Blood Cells 4.01 10^6/uL (4.5-5.90)
[2023-08-21 06:35] LABS: Red Cell Distribution Width 20.5 % (11.8-14.3)
[2023-08-21 06:36] LABS: Band Neutrophils % (manual) 0; Basophils % (manual) 0 (0.0-2.0); Blast Cells 0; Eosinophils % (manual) 0 (0-7); Metamyelocytes % 0; Myelocytes % 0; Promyelocytes % 0; Reactive Lymphocytes 0
[2023-08-21 06:45] LABS: Alanine Aminotransferase 10 U/L (7-40); Albumin 3.7 g/dL (3.2-4.8); Alkaline Phosphatase 40 U/L (46-116); Anion Gap 10 (5-15); Aspartate Aminotransferase < 8 U/L (13-40); BUN/Creatinine Ratio 126.7 (10.0-20.0); Blood Urea Nitrogen 19 mg/dL (9-23); Calcium 9.5 mg/dL (8.7-10.4); Carbon Dioxide 31 mmol/L (20-30); Chloride 99 mmol/L (98-107); Glucose 161 mg/dL (74-106); Magnesium 1.8 mg/dL (1.6-2.6); Sodium 140 mmol/L (136-145)
[2023-08-21 06:46] LABS: Bilirubin, Total 0.3 mg/dL (0.2-1.0); Total Protein 6.8 g/dL (5.7-8.2)
[2023-08-21 08:20] LABS: Lymphocytes % (manual) 3 (10.0-50.0); Monocytes % (manual) 5 (0-12)
[2023-08-21 08:21] LABS: Anisocytosis Slight; Hypochromia Moderate; Platelet Estimate Adequate
[2023-08-21 10:14] LABS: Base Excess 9.4 mmol/L (-2.0-2.0)
[2023-08-21] MEDS: acetaZOLAMIDE SODIUM 500 MG VL IV ONE (16:30)
[2023-08-22] VITALS (27 sets, daily range): BP systolic 91–115; BP diastolic 41–78; PULSE 102–130; RESP 16–39; TEMP 98.2–99; O2SAT 90–100
[2023-08-22 06:26] LABS: Basophils # (auto) 0 10 ^3/uL (0-0.2); Eosinophils # (auto) 0 10 ^3/uL (0-0.8); Hemoglobin 8.8 g/dL (13.5-17.5); Lymphocytes # (auto) 0.4 10 ^3/uL (0.4-5.4); Monocytes # (auto) 0.5 10 ^3/uL (0-1.3)
[2023-08-22 06:30] LABS: Basophils % (auto) 0.1 % (0.0-2.0); Eosinophils % (auto) 0.1 % (0.0-7.0); Hematocrit 28.3 % (41.0-53.0); Mean Corpuscular Hemoglobin 23.3 pg (28.0-32.0); Mean Corpuscular Hgb Conc. 31.2 g/dL (32.0-36.0); Mean Corpuscular Volume 74.7 fL (80.0-100.0); Monocytes % (auto) 5.2 % (0.0-12.0); Neutrophils % (auto) 90.6 % (37.0-80.0); Red Blood Cells 3.79 10^6/uL (4.5-5.90); White Blood Cell 9.9 10^3/uL (4.4-10.8)
[2023-08-22 06:33] LABS: Red Cell Distribution Width 20.3 % (11.8-14.3)
[2023-08-22 06:38] LABS: Alanine Aminotransferase 11 U/L (7-40); Alkaline Phosphatase 38 U/L (46-116); Calcium 9.4 mg/dL (8.5-10.1); Carbon Dioxide 31 mmol/L (20-30); Chloride 104 mmol/L (98-107); Glucose 154 mg/dL (74-106)
[2023-08-22 06:39] LABS: Albumin 3.6 g/dL (3.2-4.8); Anion Gap 6 (5-15); Aspartate Aminotransferase 10 U/L (13-40); BUN/Creatinine Ratio 133.3 (10.0-20.0); Bilirubin, Total 0.3 mg/dL (0.2-1.0); Blood Urea Nitrogen 20 mg/dL (9-23); Magnesium 1.8 mg/dL (1.6-2.6); Sodium 141 mmol/L (136-145); Total Protein 6.6 g/dL (5.7-8.2)
[2023-08-22 06:47] LABS: CRP High Sensitivity 1.53 mg/dL (<1.0)
[2023-08-22] MEDS: IOHEXOL 350 MG/ML 100ML IJ ONE (07:34)
[2023-08-22] MEDS: FUROSEMIDE 20 MG/2 ML VIAL IV SCH (10:19)
[2023-08-22] MEDS: acetaZOLAMIDE SODIUM 500 MG VL IV ONE (13:34)
[2023-08-23] VITALS (30 sets, daily range): BP systolic 88–114; BP diastolic 47–74; PULSE 70–124; RESP 17–40; TEMP 98.3–98.6; O2SAT 89–100
[2023-08-23 05:16] LABS: Basophils # (auto) 0 10 ^3/uL (0-0.2); Eosinophils # (auto) 0 10 ^3/uL (0-0.8); Hemoglobin 8.5 g/dL (13.5-17.5); Lymphocytes # (auto) 0.4 10 ^3/uL (0.4-5.4); Mean Corpuscular Volume 75.8 fL (80.0-100.0); Monocytes # (auto) 0.4 10 ^3/uL (0-1.3); Neutrophils % (auto) 90.7 % (37.0-80.0); White Blood Cell 8.8 10^3/uL (4.4-10.8)
[2023-08-23 05:19] LABS: Hematocrit 28.3 % (41.0-53.0); Mean Corpuscular Hemoglobin 22.9 pg (28.0-32.0); Mean Corpuscular Hgb Conc. 30.2 g/dL (32.0-36.0); Monocytes % (auto) 4.3 % (0.0-12.0); Red Blood Cells 3.73 10^6/uL (4.5-5.90); Red Cell Distribution Width 19.9 % (11.8-14.3)
[2023-08-23 05:39] LABS: Hypochromia Moderate; Platelet Estimate Adequate
[2023-08-23 05:41] LABS: Alanine Aminotransferase 12 U/L (7-40); Albumin 3.5 g/dL (3.2-4.8); Alkaline Phosphatase 33 U/L (46-116); Anion Gap 6 (5-15); Aspartate Aminotransferase < 8 U/L (13-40); Bilirubin, Total 0.3 mg/dL (0.2-1.0); Blood Urea Nitrogen 18 mg/dL (9-23); CRP High Sensitivity 0.53 mg/dL (<1.0); Calcium 9.1 mg/dL (8.5-10.1); Carbon Dioxide 29 mmol/L (20-30); Chloride 107 mmol/L (98-107); Glucose 130 mg/dL (74-106); Potassium 3.7 mmol/L (3.5-5.1); Sodium 142 mmol/L (136-145); Total Protein 6.2 g/dL (5.7-8.2)
[2023-08-23] MEDS: FREE WATER GT SCH (22:23)
[2023-08-24] VITALS (27 sets, daily range): BP systolic 83–103; BP diastolic 42–60; PULSE 91–118; RESP 17–48; TEMP 98–99; O2SAT 90–96
[2023-08-24 05:57] LABS: Basophils # (auto) 0 10 ^3/uL (0-0.2); Basophils % (auto) 0.2 % (0.0-2.0); Monocytes # (auto) 0.8 10 ^3/uL (0-1.3)
[2023-08-24 06:01] LABS: Eosinophils # (auto) 0.2 10 ^3/uL (0-0.8); Hematocrit 27.2 % (41.0-53.0); Hemoglobin 8.3 g/dL (13.5-17.5); Lymphocytes # (auto) 1.8 10 ^3/uL (0.4-5.4); Lymphocytes % (auto) 19.9 % (10.0-50.0); Mean Corpuscular Hemoglobin 22.7 pg (28.0-32.0); Mean Corpuscular Hgb Conc. 30.3 g/dL (32.0-36.0); Mean Corpuscular Volume 74.9 fL (80.0-100.0); Monocytes % (auto) 9.2 % (0.0-12.0); Neutrophils # (auto) 6.2 10 ^3/uL (1.6-8.6); Neutrophils % (auto) 68.7 % (37.0-80.0); Red Blood Cells 3.63 10^6/uL (4.5-5.90)
[2023-08-24 06:19] LABS: Alanine Aminotransferase 11 U/L (7-40); Alkaline Phosphatase 31 U/L (46-116); Anion Gap 5 (5-15); Calcium 9.2 mg/dL (8.5-10.1); Carbon Dioxide 31 mmol/L (20-30); Chloride 107 mmol/L (98-107); Potassium 3.5 mmol/L (3.5-5.1); Sodium 143 mmol/L (136-145)
[2023-08-24 06:20] LABS: Blood Urea Nitrogen 24 mg/dL (9-23); Glucose 102 mg/dL (74-106)
[2023-08-24 06:22] LABS: Albumin 3.4 g/dL (3.2-4.8); Aspartate Aminotransferase 9 U/L (13-40)
[2023-08-24 06:23] LABS: Bilirubin, Total 0.5 mg/dL (0.2-1.0); Total Protein 6.1 g/dL (5.7-8.2)
[2023-08-24] MEDS: HYDROCORTISONE SOD SUCC 100 MG/2ML INJ VIAL IV SCH (09:07)
[2023-08-25] VITALS (30 sets, daily range): BP systolic 88–105; BP diastolic 48–61; PULSE 95–128; RESP 16–52; TEMP 98.1–99.1; O2SAT 91–97
[2023-08-25 05:21] LABS: Basophils # (auto) 0 10 ^3/uL (0-0.2); Eosinophils # (auto) 0.2 10 ^3/uL (0-0.8); Lymphocytes % (auto) 18.8 % (10.0-50.0); Monocytes # (auto) 0.9 10 ^3/uL (0-1.3); Neutrophils % (auto) 70.4 % (37.0-80.0)
[2023-08-25 05:23] LABS: Basophils % (auto) 0.2 % (0.0-2.0); Eosinophils % (auto) 1.9 % (0.0-7.0); Hematocrit 28.9 % (41.0-53.0); Hemoglobin 8.7 g/dL (13.5-17.5); Mean Corpuscular Hemoglobin 22.8 pg (28.0-32.0); Monocytes % (auto) 8.7 % (0.0-12.0); Neutrophils # (auto) 7.4 10 ^3/uL (1.6-8.6); White Blood Cell 10.5 10^3/uL (4.4-10.8)
[2023-08-25 05:30] LABS: Chloride 105 mmol/L (98-107); Potassium 3.6 mmol/L (3.5-5.1); Sodium 142 mmol/L (136-145)
[2023-08-25 05:31] LABS: Anion Gap 6 (5-15); Calcium 9.3 mg/dL (8.5-10.1); Carbon Dioxide 31 mmol/L (20-30)
[2023-08-25 05:36] LABS: BUN/Creatinine Ratio 133.3 (10.0-20.0); Blood Urea Nitrogen 20 mg/dL (9-23); Glucose 102 mg/dL (74-106)
[2023-08-25 05:39] LABS: Red Cell Distribution Width 20.6 % (11.8-14.3)
[2023-08-25] MEDS: POTASSIUM EFFERVESENT TAB 25 MEQ GT ONE (09:12)
[2023-08-25 10:31] LABS: Base Excess 6.9 mmol/L (-2.0-2.0)
[2023-08-25] MEDS: acetaZOLAMIDE SODIUM 500 MG VL IV ONE (16:41)
[2023-08-26] VITALS (23 sets, daily range): BP systolic 75–110; BP diastolic 43–74; PULSE 96–127; RESP 16–41; TEMP 98.3–99.1; O2SAT 88–97
[2023-08-26 07:10] LABS: Basophils # (auto) 0 10 ^3/uL (0-0.2); Basophils % (auto) 0.3 % (0.0-2.0); Eosinophils # (auto) 0.2 10 ^3/uL (0-0.8); Hematocrit 29.3 % (41.0-53.0); Hemoglobin 8.9 g/dL (13.5-17.5); Lymphocytes # (auto) 1.7 10 ^3/uL (0.4-5.4); Lymphocytes % (auto) 17.4 % (10.0-50.0); Mean Corpuscular Hemoglobin 22.6 pg (28.0-32.0); Mean Corpuscular Hgb Conc. 30.2 g/dL (32.0-36.0); Mean Corpuscular Volume 74.8 fL (80.0-100.0); Monocytes # (auto) 0.7 10 ^3/uL (0-1.3); Monocytes % (auto) 7.2 % (0.0-12.0); Neutrophils # (auto) 7.3 10 ^3/uL (1.6-8.6); Neutrophils % (auto) 73.1 % (37.0-80.0); Red Blood Cells 3.92 10^6/uL (4.5-5.90); White Blood Cell 9.9 10^3/uL (4.4-10.8)
[2023-08-26 07:13] LABS: Red Cell Distribution Width 20.1 % (11.8-14.3)
[2023-08-26 07:23] LABS: Calcium 9.4 mg/dL (8.5-10.1); Chloride 107 mmol/L (98-107); Potassium 3.9 mmol/L (3.5-5.1); Sodium 141 mmol/L (136-145)
[2023-08-26 07:24] LABS: Anion Gap 5 (5-15); Carbon Dioxide 29 mmol/L (20-30)
[2023-08-26 07:29] LABS: Glucose 109 mg/dL (74-106)
[2023-08-26 07:30] LABS: Blood Urea Nitrogen 18 mg/dL (9-23)
[2023-08-26] MEDS ORDERED: LORA-655 PO (12:26)
== END 2023-08-26 20:00 | disposition home health service (06) | DRG 720 ==
LOC: ER 09:30 → EDBD 09:30 → OVERFLOW 12:15 → ICU CENTRL 08-19 23:47 → DOU IN ICU 08-22 07:38 → ICU CENTRL 08-24 20:02 → DOU IN ICU 08-25 00:37
PROVIDERS: ADMIT Internal Medicine Pulmonary Disease; ATTEND Emergency Medicine
PROC: 5A1955Z Respiratory Ventilation, Greater than 96 Consecutive Hours (ICD-10-PCS; principal; 2023-08-15)
PROC: 05HC33Z Insertion of Infusion Device into Left Basilic Vein, Percutaneous Approach (ICD-10-PCS; 2023-08-15)
PROC: B54MZZA Ultrasonography of Right Upper Extremity Veins, Guidance (ICD-10-PCS; 2023-08-15)
DX: A41.52 Sepsis due to Pseudomonas (principal); J96.01 Acute respiratory failure with hypoxia; I50.23 Acute on chronic systolic (congestive) heart failure; J15.1 Pneumonia due to Pseudomonas; I42.9 Cardiomyopathy, unspecified; Z93.0 Tracheostomy status; D63.8 Anemia in other chronic diseases classified elsewhere; G71.01 Duchenne or Becker muscular dystrophy; I11.0 Hypertensive heart disease with heart failure; Z99.11 Dependence on respirator [ventilator] status; E03.9 Hypothyroidism, unspecified; E87.6 Hypokalemia; E83.42 Hypomagnesemia; J47.9 Bronchiectasis, uncomplicated; Z20.822 Contact with and (suspected) exposure to COVID-19; F41.9 Anxiety disorder, unspecified; J96.22 Acute and chronic respiratory failure with hypercapnia; K21.9 Gastro-esophageal reflux disease without esophagitis; Z74.01 Bed confinement status; Z93.1 Gastrostomy status; Z82.49 Family history of ischemic heart disease and other diseases of the circulatory system; Z83.3 Family history of diabetes mellitus; Z86.16 Personal history of COVID-19; Z87.01 Personal history of pneumonia (recurrent)
CPT/HCPCS: 36415; 36600; 71045; 71275; 80048; 80053; 80202; 81001; 82270; 82728; 82805; 82962; 83540; 83550; 83605; 83615; 83735; 83880; 84132; 84443; 84484; 85007; 85025; 85027; 85045; 85048; 85379; 85610; 85730; 86141; 87040; 87045; 87070; 87077; 87081; 87086; 87186; 87205; 87426; 87427; 87804; 93005; 93970; 93971; 94002; 94003; 94640; 94644; 94668; G0378; J0714; J1956; J2001; J2185; J2405; J3480

== ENCOUNTER 2023-12-06 04:28 | Emergency (ER) | payer MEDICAID ==
[~2023-12-06 04:28] MED LIST changes: -FUR20T GT; +FURO20TA3 PO; -HYDR1SYP PO; +LORA-655 PO; -LORA2TAB89 PO; +MET25T PO; -METO25TA5 GT; -SACC250C PO; +TRAZ-227 PO
[2023-12-06 05:00] VITALS: BP 87/53; PULSE 124; RESP 41; O2SAT 87
[2023-12-06 05:25] VITALS: BP 87/53
[2023-12-06 05:45] VITALS: PULSE 144; RESP 46; O2SAT 78
[2023-12-06] MEDS ORDERED: LORazepam 2MG/ML-1ML VIAL IV ONE (05:45)
[2023-12-06] MEDS: IPRATROPIUM BROM 0.5 MG/2.5ML INH SOL NEB ONE (05:45)
[2023-12-06] MEDS: ALBUTEROL SULF 2.5 MG/0.5ML(0.5%) NEB SOLN NEB ONE (05:45)
[2023-12-06] MEDS ORDERED: ETOMIDATE (2MG/ML) 20ML VIAL IV ONE (06:05)
[2023-12-06 06:22] LABS: Eosinophils # (auto) 0 10 ^3/uL (0-0.8); Monocytes # (auto) 0.5 10 ^3/uL (0-1.3); Monocytes % (auto) 3.3 % (0.0-12.0); White Blood Cell 16.2 10^3/uL (4.4-10.8)
[2023-12-06 06:23] LABS: Basophils # (auto) 0 10 ^3/uL (0-0.2); Basophils % (auto) 0.2 % (0.0-2.0); Chloride 101 mmol/L (98-107); Hematocrit 42.3 % (41.0-53.0); Hemoglobin 12.7 g/dL (13.5-17.5); Lymphocytes # (auto) 0.8 10 ^3/uL (0.4-5.4); Lymphocytes % (auto) 5.2 % (10.0-50.0); Mean Corpuscular Hemoglobin 22.6 pg (28.0-32.0); Mean Corpuscular Hgb Conc. 29.9 g/dL (32.0-36.0); Mean Corpuscular Volume 75.5 fL (80.0-100.0); Neutrophils # (auto) 14.8 10 ^3/uL (1.6-8.6); Neutrophils % (auto) 91.3 % (37.0-80.0); Nucleated Red Blood Cells % 0.1 %; Platelet Count (auto) 331 10^3/uL (140-450); Potassium 5.2 mmol/L (3.5-5.1); Red Blood Cells 5.61 10^6/uL (4.5-5.90); Sodium 136 mmol/L (136-145)
[2023-12-06 06:24] LABS: Anion Gap 7 (5-15); Carbon Dioxide 28 mmol/L (20-31)
[2023-12-06 06:25] LABS: Calcium 9.8 mg/dL (8.7-10.4)
[2023-12-06 06:29] LABS: Blood Urea Nitrogen 9 mg/dL (9-23); Glucose 184 mg/dL (74-106)
[2023-12-06 06:50] LABS: Base Excess 1.7 mmol/L (-2.0-3.0)
== END 2023-12-06 06:29 | disposition short-term general hospital (02) ==
LOC: ER 04:28
DX: I46.9 Cardiac arrest, cause unspecified (principal); J96.00 Acute respiratory failure, unspecified whether with hypoxia or hypercapnia; G71.01 Duchenne or Becker muscular dystrophy; I10 Essential (primary) hypertension; Z93.0 Tracheostomy status
CPT/HCPCS: 31500; 36415; 36600; 71045; 80048; 82805; 83605; 85025; 87070; 87077; 87186; 87205; 92950; 94640; 99291; J2060; 94003